=== PATIENT | female | born 2005 | race Caucasian/White ===

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

== ENCOUNTER 2024-02-23 16:05 | Outpatient (CLI) | payer MEDICAID, SELFPAY ==
--- NOTE | ~2024-02-23 | US_ITS ---
EXAMINATION: US OB <=14 wk fetus w TV INDICATION: Pain TECHNIQUE: Sonography of the pelvis was performed by transabdominal and transvaginal techniques. COMPARISON: None. RESULT: Uterus: 8.4 x 4.4 x 4.8 cm. Anteverted. Homogenous myometrium. Intrauterine gestational sac: Single present. Mean Sac Diameter: 1.02 cm, corresponding gestational age 5 week 5 days. Yolk sac: 0.18 cm . Embryo: Single present. Possible pole identified, crown rump length: 0.12 cm, out of range fo r gestational age calculation. Gestational heart rate: Not detected . Subgestational hematoma: Absent . Right ovary: 3.7 x 2.0 x 2.8 cm. Vascular flow is present. Small cystic structure, likely corpus l uteal cyst. Left ovary: 3.1 x 2.4 x 2.0 cm. Vascular flow is present. No adnexal mass. Pelvis free fluid: None. IMPRESSION: Intrauterine of uncertain viability. Recommend clinical and sonographic follow-up. Estimated Gestational Age: 5 weeks, 5 days by mean gestational sac diameter. MAY by ultrasound 2024. Reviewed, dictated and finalized at location K. IMPRESSION: Intrauterine of uncertain viability. Recommend clinical and sonograph ic follow-up. Estimated Gestational Age: 5 weeks, 5 days by mean gestational sac diameter. E DD by ultrasound 10/20/2024.
== END 2024-02-23 16:06 | disposition home or self-care (01) ==
LOC: ANHIMG 16:12
PROVIDERS: PCP Family Medicine; Visit Provider Advanced Practice Midwife
DX: R52 Pain, unspecified (principal); Z34.91 Encounter for supervision of normal pregnancy, unspecified, first trimester; Z3A.01 Less than 8 weeks gestation of pregnancy
CPT/HCPCS: 76801; 76817

== ENCOUNTER 2024-04-21 06:30 | Emergency (ER) | payer OTHER, MEDICAID, SELFPAY ==
[2024-04-21 06:47] VITALS: PULSE 110; RESP 15; TEMP 36.4; O2SAT 100
[2024-04-21 06:57] LABS: Basophils Percent Auto 0.3 % (0.2-1.2); Eosinophils Percent Auto 0.3 % (0-4.4); Hematocrit 39.1 % (37.0-47.0); Hemoglobin 13.2 g/dL (12.0-15.0); Immature Granulocyte Absolute 0.03 K/mm3 (0.00-0.031); Immature Granulocyte Percent A 0.3 % (0-0.5); Lymphocytes Absolute Auto 0.66 K/mm3 (0.9-3.2); Mean Corpuscular HGB Conc 33.8 g/dl (32-36); Mean Corpuscular Hemoglobin 29.8 pg (26-34); Mean Corpuscular Volume 88.3 fl (80-100); Mean Platelet Volume 9.4 fl (7.4-10.4); Monocytes Absolute Auto 0.7 K/mm3 (0.1-0.6); Monocytes Percent Auto 6.7 % (2.6-8.5); Neutrophils Absolute Auto 9.6 K/mm3 (1.3-6.7); Neutrophils Percent Auto 86.4 % (45.5-73.1); Platelet Count Result 199 k/mm3 (150-375); Red Blood Count 4.43 M/mm3 (4.2-5.4); Red Cell Distribution Width 13.2 % (11.5-14.5); White Blood Count 11.1 K/mm3 (4.5-10.0)
[2024-04-21] MEDS: SODIUM CHLORIDE 0.9% IV 1,000 ML 999 ML IV CONT (07:01)
[2024-04-21 07:09] LABS: Prothrombin Time 13.9 Seconds (11.1-14.7)
[2024-04-21 07:10] LABS: Partial Thromboplastin Time 25.5 Seconds (22.3-36.8)
[2024-04-21 07:13] LABS: Alanine Aminotransferase 26 U/L (6-35); Albumin Level 4.4 g/dL (3.5-5.1); Alkaline Phosphatase 58 U/L (38-126); Anion Gap 9 mmol/L (4-12); Aspartate Amino Transferase 25 U/L (14-36); Bilirubin,Total 0.2 mg/dL (0.2-1.3); Blood Urea Nitrogen 10 mg/dL (7-17); Carbon Dioxide 24 mmol/L (22-30); Chloride 101 mmol/L (98-107); Estimated CRCL calculation 139 ml/min; Estimated Glomerular Filt Rate > 60; Glucose 112 mg/dL (65-110); Sodium 134 mmol/L (137-145)
[2024-04-21 07:27] VITALS: BP 112/71; PULSE 89; RESP 16; O2SAT 100
--- NOTE | 2024-04-21 07:30 | ED.GENADULT ---
HPI - General Adult General Chief complaint: GI Bleed Stated complaint: 14wks preg, blood in stool and cramping Time Seen by Provider: 04/21/24 06:52 History of Present Illness HPI narrative: 19-year-old female that is 14 weeks presents to the emergency department for evaluation for abdominal cramping and passing blood per rectum. Patient states that she has had some issues with constipation during this . Patient states last night she was having a bowel movement and did pass some blood. Patient states then later the morning she had 2 episodes of passing blood per rectum without stool. Patient does complain of lower abdominal cramping. Related Data Allergies Allergy/AdvReac Type Severity Reaction Status Date / Time No Known Allergies Allergy Verified 04/21/24 06:32 Review of Systems Review of Systems: All systems reviewed & are unremarkable except as noted in HPI and below PMFSH Past Medical History Medical History (Updated 04/21/24 @ 09:45 by Paul Gutierrez MD) Pre-eclampsia Family History Family History (Updated 12/21/22 @ 13:19 by Jihan Vela RN) Grandparent Cancer Grandparent Cancer Social History Social History Smoking status: Never smoker Alcohol intake: never Substance use: never Lack of Transportation: No Lack of Food: Never True Current Housing: I Do Not Have Housing Concerned About Future Housing: No Difficulty Paying Gas/Electric Bills: No Difficulty Paying for Meds: No Currently Unemployed: No Education: High School Diploma/GED Difficulty w/ Childcare or Family Care: No Living arrangements: with family Gender identity (if verbalized by the patient): Female Spiritual care concerns: No Exam Narrative: APPEARANCE: Well appearing, no pain, no distress, well-nourished. HEAD: normocephalic, atraumatic. EYES: PERRLA/EOMI, conjunctivae clear. NOSE: Normal no drainage EARS:TMS clear with good light reflex. THROAT: Pharynx clear, no exudate. NECK: Supple. No adenopathy, no masses. RESPIRATORY: Airway patent, respirations nonlabored. Clear to auscultation bilaterally, no rales, rhonchi, wheezing. CARDIOVASCULAR: Regular rate and rhythm without murmurs rubs or gallops. ABDOMINAL: Soft, nontender, nondistended, normal bowel sounds MUSCULOSKELETAL: Moves all extremities. Strength/ROM intact, No edema, No calf tenderness. NEURO: Alert. Cranial nerves II through XII intact. Good gait. Good coordination SKIN: Warm, dry. Normal Color rectal exam: Posterior tenderness during the rectal exam concerning for pressure, no fissure identified. Patient did have some brown stool with traces of blood on the digital rectal exam. Course Vital Signs Vital signs: Vital Signs Temperature 97.6 F 04/21/24 06:47 Pulse Rate 110 H 04/21/24 06:47 Respiratory Rate 15 04/21/24 06:47 Pulse Oximetry 100 04/21/24 06:47 Temperature 97.6 F 04/21/24 06:47 Pulse Rate 80 04/21/24 10:00 Respiratory Rate 18 04/21/24 10:00 Blood Pressure 121/83 04/21/24 10:00 Pulse Oximetry 100 04/21/24 10:00 Medical Decision Making MDM Narrative Medical decision making narrative: 19-year-old female presents emergency department for evaluation for rectal bleeding. Patient did have some sharp pain on the digital rectal exam concerning for anal fissure, no anal fissure was easily visible. No active bleeding on digital rectal exam. Patient did have a trace amount of blood the stool in the rectum. No hematochezia no melena. Patient has a minor leukocytosis but a normal hemoglobin and no acute abnormalities on her CMP UA was negative for infection. Patient did feel improved after rehydration. Was encouraged of close follow-up with her primary care physician and her OB Gyne. All questions concerns were addressed. bedside M-mode ultrasound showed heart rate of 150-170 Differential Diagnosis Differential Diagnosis: colitis, diverticulitis, hemorrhoid, UTI, abdominal cramps, dehydration Vital Signs Vital Signs: Vital Signs Temperature 97.6 F 04/21/24 06:47 Pulse Rate 110 H 04/21/24 06:47 Respiratory Rate 15 04/21/24 06:47 Pulse Oximetry 100 04/21/24 06:47 Temperature 97.6 F 04/21/24 06:47 Pulse Rate 80 04/21/24 10:00 Respiratory Rate 18 04/21/24 10:00 Blood Pressure 121/83 04/21/24 10:00 Pulse Oximetry 100 04/21/24 10:00 Lab Data Lab results reviewed: Yes I reviewed the patient's lab results. 11/13/24 06:50 04/21/24 06:50 Labs: Lab Results 04/21/24 Range/Units 06:50 WBC 11.1 H (4.5-10.0) K/mm3 RBC 4.43 (4.2-5.4) M/mm3 Hgb 13.2 D (12.0-15.0) g/dL Hct 39.1 (37.0-47.0) % MCV 88.3 (80-100) fl MCH 29.8 (26-34) pg MCHC 33.8 (32-36) g/dl RDW 13.2 (11.5-14.5) % Plt Count 199 D (150-375) k/mm3 MPV 9.4 (7.4-10.4) fl Immature Gran % (Auto) 0.3 (0-0.5) % Neut % (Auto) 86.4 H (45.5-73.1) % Lymph % (Auto) 6.0 L (18.3-44.2) % [place] % (Auto) 6.7 (2.6-8.5) % Eos % (Auto) 0.3 (0-4.4) % Baso % (Auto) 0.3 (0.2-1.2) % Lymph # (Auto) 0.66 L (0.9-3.2) K/mm3 [place] # (Auto) 0.7 H (0.1-0.6) K/mm3 Eos # (Auto) 0.0 (0-0.3) K/mm3 Baso # (Auto) 0.0 (0.0-0.1) K/mm3 Abs Immat Gran (auto) 0.03 (0.00-0.031) K/mm3 Absolute Neuts (auto) 9.6 H (1.3-6.7) K/mm3 Absolute Nucleated RBC 0.000 (0.0-0.012) K/mm3 Nucleated RBC % 0.0 (0.0-0.2) % PT 13.9 (11.1-14.7) Seconds INR 1.0 APTT 25.5 (22.3-36.8) Seconds Sodium 134 L (137-145) mmol/L Potassium 4.0 (3.4-5.0) mmol/L Chloride 101 (98-107) mmol/L Carbon Dioxide 24 (22-30) mmol/L Anion Gap 9 (4-12) mmol/L BUN 10 (7-17) mg/dL Creatinine 0.60 L (0.7-1.0) mg/dL Estim Creat Clear Calc 139 ml/min Estimated GFR > 60 (59 - ) Glucose 112 H (65-110) mg/dL Calcium 9.0 (8.4-10.2) mg/dL Total Bilirubin 0.2 (0.2-1.3) mg/dL AST 25 (14-36) U/L ALT 26 (6-35) U/L Alkaline Phosphatase 58 (38-126) U/L Total Protein 8.0 (6.3-8.2) g/dL Albumin 4.4 (3.5-5.1) g/dL Urine Color Yellow (Yellow) Urine Appearance Cloudy H (Clear) Urine pH 5.5 (5.0-9.0) Ur Specific [place] 1.026 (1.001-1.035) Urine Protein Trace (Negative) mg/dL Urine Glucose (UA) Negative (Negative) mg/dL Urine Ketones Negative (Negative) mg/dL Ur Blood (Man) Negative (Negative) Urine Nitrate Negative (Negative) Urine Bilirubin Negative (Negative) Urine Urobilinogen 0.2 (<2.0) mg/dL Add Ur Microanalysis Reviewed Leukocyte Esterase Rfl Negative (Negative) AMANDO/UL Urine RBC 3-5 H (0-2) /hpf Urine WBC 0-5 (0-3) /hpf Ur Squamous Epith Cells Moderate (Few) /hpf Urine Bacteria 2+ H /hpf Urine Casts 3-5 Blood Type O Positive Antibody Screen Negative Discharge Plan Discharge Clinical Impression: Rectal bleeding, Abdominal cramping Patient Disposition: Home, Self-Care Condition: Stable Instructions: Antibiotic Form, Rectal Bleeding (ED) Additional Instructions: drink plenty of fluids. Tylenol for pain control. Have close follow-up with OB Gyne. If you have any worsening symptoms then please call or return to the emergency department. Follow-up/Referrals: PHYSICIAN,ELECTRICAL ENGINEERING MANAGER [Non-Staff] -
[2024-04-21 07:35] LABS: Add Urine Microscopic? YES; Appearance Urine Cloudy (Clear); Bacteria Urine 2+ /hpf; Bilirubin Urine Negative (Negative); Blood Urine Negative (Negative); Color Urine Yellow (Yellow); Glucose Urine UA Negative (Negative); Ketones Urine Negative (Negative); Leukocyte Esterase Ur Negative LEU/UL (Negative); Need Manual Microscopic Reviewed; Nitrate Urine Negative (Negative); Protein Urine Trace mg/dL (Negative); Specific Grav Ur 1.026 (1.001-1.035); Squamous Epithelial Cell Urine Moderate /hpf (Few); Urobilinogen Urine 0.2 mg/dL (<2.0); pH Urine 5.5 (5.0-9.0)
[2024-04-21 07:37] LABS: WBC Urine 0-5 /hpf (0-3)
[2024-04-21 09:14] VITALS: BP 121/83; PULSE 90; RESP 18; O2SAT 100
[2024-04-21 10:00] VITALS: BP 121/83; PULSE 80; RESP 18; O2SAT 100
== END 2024-04-21 10:03 | disposition home or self-care (01) ==
PROVIDERS: Student in an Organized Health Care Education/Training Program; Emergency Provider Emergency Medicine
DX: K62.5 Hemorrhage of anus and rectum (principal); R10.9 Unspecified abdominal pain
CPT/HCPCS: 36415; 80053; 81001; 85025; 85610; 85730; 86850; 86900; 86901; 96360; 96361; 99283; J7030

== ENCOUNTER 2024-07-24 12:24 | Outpatient (RCR) | payer OTHER, MEDICAID, SELFPAY ==
[2024-07-24 13:17] VITALS: BP 113/66
== END 2024-10-12 17:58 | disposition home or self-care (01) ==
LOC: ANHOBOP 12:24
PROVIDERS: Visit Provider Advanced Practice Midwife
DX: O36.8120 Decreased fetal movements, second trimester, not applicable or unspecified (principal); Z3A.27 27 weeks gestation of pregnancy
CPT/HCPCS: 59025

== ENCOUNTER 2024-09-02 12:17 | Outpatient (CLI) | payer OTHER, MEDICAID, SELFPAY ==
[2024-09-02 12:50] VITALS: BP 108/66; PULSE 94
[2024-09-02 13:00] VITALS: BP 107/64; PULSE 89
--- OUTSIDE RECORDS SUMMARY | 2024-09-02 13:08 | XMS_ITS | Continuity of Care Document ---
Author Organization [facility], Amory Address [address] [place] [address] Assessment Encounter Date Assessment Date Assessment LastModified by Organization Details LastModified Time 09/01/2024 09/01/2024 Patient is _33__weeks . Discussed plan. Not available 09/01/2024 15:35:50 Plan of Treatment Reminders Order Date Submit Date Provider Last Modified By Organization Details Last Modified Time Details Appointments OB ROUTINE 2024 04:45P M Carrie Beatty CNM Not available Not available Not available OB ROUTINE 2024 09:15A M SHEILA SHERWOOD MD Not available Not available Not available U/S OB GROWTH 2024 11:00A M ULTRASOUND Not available Not available Not available OB ROUTINE 2024 11:45A M Carrie Beatty CNM Not available Not available Not available Lab None recorde d. Referral None recorde d. Procedures None recorde d. Surgeries None recorde d. Imaging None recorde d. Medication Orders None recorde d. Patient TargetsNo targets recorded. Patient InstructionsNo instructions recorded. Reason for Referral None Reported. Results Created Date Observation Date Name Description Value Unit Range Abnormal Flag Note LastModifiedBy Organization Detail LastModifiedTime 04/09/2004/09/2024 US, obste tric, nucha l trans lucen cy No observ ation record ed. [facility] [address], [place], [address], 04/09/2024 13:56:24 04/09/20 24 04/09/2024 US, obste tric, nucha l trans lucen cy No observ ation record ed. [email or web address] [address], [place], [address], 04/09/2024 21:34:13 06/11/19 25 06/11/2024 US, obste tric, 2nd or 3rd trime ster No observ ation record ed. [facility] [address], [place], [address], 06/11/2024 17:06:59 06/11/19 25 06/11/2024 US, obste tric, 2nd or 3rd trime ster No observ ation record ed. [email or web address] [address], [place], [address], 06/11/2024 23:27:04 07/24/19 25 07/24/2024 imagi ng/di agnos tic resul t No observ ation record ed. [facility] [address], [place], [address], 07/25/2024 07:21:51 09/02/19 25 09/01/2024 US, obste tric, follo w-up No observ ation record ed. [email or web address] [facility] [address], [place], [address], 09/01/2024 18:21:06 09/02/19 25 09/01/2024 US, obste tric, follo w-up No observ ation record ed. [email or web address] [address], [place], [address], 09/01/2024 15:16:12 Result Notes None recorded. Problems Name Problem SNOMED Code Status Onset Date Resolution Date Notes Provider Name and Address Organization Details Recorded Time Pregnanc y 34549560 Completed 202201/10/2023 Ariana Davey [facility], [facility] 13:17:11 Uterine size for dates discrepa ncy 660875025 Completed 2022 Cat Garza [facility], [facility] 3 12:30:20 Anemia 385243611 Completed slowfe 1tab daily Cat Garza [facility], [facility] 3 12:30:20 Breech presenta tion 8519746 Completed [place] -CS 01/08 Cat Garza [facility], [facility] 3 12:30:20 Pregnanc y 85137283 Active 2023 Ariana Davey [facility], [facility] 4 13:17:11 Past pregnanc y history of pre-ecla mpsia 3051010968 11004 Active bASA daily Carrie Beatty CNM [address], [place], [address], [facility] 4 13:56:45 section Active breech/p reeclamp marissa Carrie Beatty CNM [address], [place], [address], [facility] 4 13:55:06 Impaired glucose toleranc e 1707472 Active 3hr gtt schedule d Alisia nelson, [facility] 5 12:02:42 Impaired glucose toleranc e 2170315 Active 3hr gtt schedule d Alisia Murphy [facility], [facility] 5 12:02:41 Problem Notes None recorded. Procedures Surgical History Date Name Laterality Status Provider Name and Address Organization Details Recorded Time 3 SECTION (SURG) completed Anna Chow [facility] 01/02/2023 10:39:04 2 IUD Removal completed JAZ Ojeda- [address], [place], [address], [facility] 03/11/2022 09:51:40 IUD Insertion completed Angelina Sifuentes, [facility]- [address], [place], [address], [facility] 04/12/2021 10:59:44 Imaging Results None recorded. Procedure Notes None recorded. Medical Equipment None Reported. Allergies No known drug allergies Medications Name Sig Start Date Stop Date Status Note LastModified by Organization Details LastModified Time amoxicill in 500 mg capsule TAKE 1 CAPSULE BY MOUTH TWICE A DAY FOR 10 DAYS 05/14 completed Not Available Not Available Not Available doxycycli ne hyclate 100 mg capsule TAKE 1 CAPSULE BY MOUTH TWICE A DAY WITH MEALS FOR 7 DAYS 11/12 completed Not Available Not Available Not Available azithromy rob 250 mg tablet 05/24 completed Not Available Not Available Not Available fluconazo le 150 mg tablet TAKE 1 TABLET BY MOUTH EVERY DAY DIRECTED FOR 1 DAY 02/06 completed Not Available Not Available Not Available ondansetr on HCl 4 mg tablet TAKE 1 TABLET BY MOUTH EVERY 6 HOURS. 08/18 completed Not Available Not Available Not Available metronida zole 500 mg tablet TAKE 1 TABLET BY MOUTH THREE TIMES A DAY FOR 7 DAYS 05/14 completed Not Available Not Available Not Available ondansetr on 8 mg disintegr ating tablet Take 1 tablet PO 1hr prior to your schedule d procedur e. 10/11 completed Not Available Not Available Not Available oxycodone -acetamin ophen 5 mg-325 mg tablet TAKE 1 TABLET BY MOUTH EVERY 4 HOURS NEEDED FOR PAIN 02/03 completed Not Available Not Available Not Available amoxicill in 875 mg tablet TAKE 1 TABLET BY MOUTH EVERY 12 HOURS 03/05 completed Not Available Not Available Not Available phenazopy ridine 100 mg tablet TAKE 1 TABLET BY MOUTH THREE TIMES A DAY FOR 7 DAYS 03/11 completed Not Available Not Available Not Available misoprost ol 100 mcg tablet Insert 1 tablet vaginall y the night prior to your procedur e. 05/24 completed Not Available Not Available Not Available ibuprofen 600 mg tablet Take 1 tablet PO 1hr prior to your procedur e than, q8hrs x 24hrs with food. 02/06 completed Not Available Not Available Not Available metoclopr amide 10 mg tablet TAKE 1 TABLET BY MOUTH FOUR TIMES A DAY 04/09 completed Not Available Not Available Not Available amoxicill in 500 mg-potass ium clavulana te 125 mg tablet TAKE 1 TABLET BY MOUTH EVERY 12 HOURS FOR 5 DAYS 03/11 completed Not Available Not Available Not Available medroxypr ogesteron e 150 mg/mL intramusc ular syringe INJECT 1 MILLILIT ER INTRAMUS CULARLY EVERY 3 MONTHS 02/25 completed Patient requeste d to stop Depo Not Available Not Available Not Available FE 06/28 (28) 1 mg-20 mcg (21)/75 mg (7) tablet Take 1 tablet every day by oral route. 03/22 completed Not Available Not Available Not Available 10/20 completed Not Available Not Available Not Available Lo Loestrin Fe 1 mg-10 mcg (24)/10 mcg (2) tablet Take 1 tablet every day by oral route for 90 days. 01/11 completed Not Available Not Available Not Available Kyleena 17.5 mcg/24 hr (up to 5 years) 19.5 mg intrauter ine device Take by intraute rine route. 03/11 completed Not Available Not Available Not Available Vitals Date Recorded Body weight Body mass index (BMI) Percentile per age and sex Body mass index (BMI) Body height Systolic blood pressure Diastolic blood pressure Provider Name and Address Organization Details Last Updated DateTime 5 65284.8 8163 g 95 % 32.1 kg/m2 167.64 cm 114 mm[Hg] 68 mm[Hg] Ariana Davey [facility] 5 15:28:28 Social History Question Answer Notes LastModified by Organizat ion Details LastModified Time Tobacco Smoking Status Never Smoker Margaret nelson [facility] 12/15/2019 10:08:23 What Is Your Level Of Alcohol Consumption? None Information not available 10/09/2020 Are You Blind Or Do You Have Difficulty Seeing? No Information n ot available 10/09/2020 What Is Your Level Of Caffeine Consumption? Moderate Information not available 10/09/2020 In The 14 Days Before Symptom Onset, Have You Had Close Contact With A Laboratory-confirm ed COVID-19 While That Case Was Ill? No [email or web address] Information n ot available 06/12/2022 In The 14 Days Before Symptom Onset, Have You Had Close Contact With A Person Who Is Under Investigation For COVID-19 While That Person Was Ill? No Information not available 06/12/2022 Have You Been To An Area Known To Be High Risk For COVID-19? No [email or web address] Information not available 06/12/2022 Are You Currently Employed? No Information not available 10/10/2020 Are You Deaf Or Do You Have Serious Difficulty Hearing? No Information not available 10/09/2020 What Type Of Diet Are You Following? REGULAR Information n ot available 10/09/2020 What Is The Highest Grade Or Level Of School You Have Completed Or The Highest Degree You Have Received? [id number] Information not available 10/10/2020 Do You Use Your Seat Belt Or Car Seat Routinely? Yes Information not available 10/09/2020 Are You Sexually Active? No Information not available 10/10/2020 Do You Have Smoke And Carbon Monoxide Detectors In Your Home? Yes Information not available 10/09/2020 Do You Feel Stressed (tense, Restless, Nervous, Or Anxious, Or Unable To Sleep At Night)? [id number] Information not available 10/09/2020 Do You Use Any Illicit Or Recreational Drugs? No Information not available 10/09/2020 Do You Use Sunscreen Routinely? Yes Information not available 10/09/2020 Has Tobacco Cessation Counseling Been Provided? No [email or web address] Information not available 06/12/2022 Do You Or Have You Ever Used Any Other Forms Of Tobacco Or Nicotine? No [email or web address] Information not available 06/12/2022 Sex: Unknown Functional Status Question Answer Note LastModified by Organizat ion Details LastModified Time Do you have difficulty walking or climbing stairs? No [email or web address] Information not available 06/14/2022 Are you able to walk? [email or web address] Information not available 10/09/2020 Are you able to care for yourself? Yes Information not available 03/11/2022 Do you have difficulty dressing or bathing? No Information not available 03/11/2022 What is your exercise level? Moderate Information not available 10/09/2020 Mental Status None recorded. Family History Relationship Description Onset Age of this Age Resolved Age Notes LastModified by Organization Details LastModified Time Father Hypertensive disorder [email or web address] Not available 2019 10:07:51 Maternal Grandmother Carcinoma in situ of uterus [email or web address] Not available 2019 10:08:04 Maternal Grandfather Carcinoma in situ of colon [email or web address] Not available 2019 10:08:16 Maternal Grandfather Heart disease [email or web address] Not available 2019 10:08:21 Medical History Condition Response Allergies (Food, seasonal, environmental ) N Other N Breast Cancer N Drug/Latex Allergies/Reactions N Blood Transfusion N Dermatologic Disorders N Lung Disease N Defects or Inherited Disease N Breast Problem N Gestational Diabetes N Hematologic disorders N Anesthesia Complications N History of STI N Deep Vein Thrombosis N Polycystic ovary syndrome N Anxiety Disorder N Autoimmune disease N Arthritis N Infertility N Polyps N Acid Reflux (GERD) N History of abnormal pap N Cancer N Stroke N Varicosities N Neurologic/Epilepsy N Endometriosis N High Cholesterol N Headaches N Fibromyalgia N Kidney Disease N Heart Problems N Kidney or Bladder Problems N Thyroid Problems N GI Problems N Eating Disorder N Anemia N Art (IVF or FET) N Psychiatric Illness N Ovarian Cancer N Diabetes N Pulmonary (TB, Asthma) N Hepatitis/Liver Disease N No Past Medical History N Eczema N Urinary Tract Infection N Abuse/Domestic Violence N Asthma N Trauma/Violence N Depression/ depression N Heart Disease N Pre-Eclampsia N Hypertension N Osteoporosis N Thrombophilias N Gynecological History Statement/Question Response Flow Heavy Date of Last Mammogram Date of LMP 01/12/2024 Was last menstrual period normal N STIs/STDs N HPV Vaccine Y Duration of Flow (days) 7 13 Current Control Method Are cycles usually normal N Date of Last Colonoscopy Frequency of Cycle (Q days) Sexually Active? Y Menses Monthly N Date of DEXA bone scan Age of first menstrual cycle 12 Date of Last Pap Smear Sexual Problems? N LMP Definite Obstetrics History GPAL:G 2 P 0 0 0 1 Type Value Living 1 Total 2 Immunizations Vaccine Type Date Status Note Provider Nam e and Address Organization Details Recorded Time COVID-19, mRNA, LNP-S, PF, 30 mcg/0.3 mL dose 12/09/2020 completed Dinora Fournier [facility] 01/11/2021 11:07:15 Past Encounters Encounter ID Performer Location Encounter Start Date Encounter Closed Date Diagnosis/Indication Diagnosis SNOMED-CT Code Diagnosis ICD10 Code Diagnosis Note [id number] Carrie Beatty [facility] [address] [address] 08/04/2024 13:32:49 08/04/2024 14:34:34 Gestation period, 29 weeks 09884801 Z3A.29 [id number] Carrie Beatty [facility] [address] [address] 08/18/2024 14:24:48 08/18/2024 15:14:09 Routine care 714141259 Z34.93 [id number] [facility] [address] [address] 09/01/2024 14:10:36 09/01/2024 15:14:22 Past history of pre-eclampsia 0696646166 20018 Z87.59 Z3A.33 [id number] Carrie Beatty [facility] [address] [address] 09/01/2024 14:10:49 09/01/2024 15:57:34 Gestation period, 33 weeks 30290704 Z3A.33 Health Concerns Section Related Observation LastModified by Organization Detai ls LastModified Time None Recorded Concern Status LastModified by Organization Details LastModified Time None Recorded Payers Encounter Date Sequence Insurance Name Policy Number Policy Ruvalcaba Covered Member ID Ruvalcaba Member ID Guarantor Name 09/01/2024 2 [place] [employer] Selina Lion [id number] Selina Lion 09/01/2024 1 [facility] [id number] Bk Lion [id number] Selina Lion OBGyn Episode Ob Episode Information Episode Created Date Number of Fetuses Patient Bloodtype Patient rh Status Prepregnancy Weight lbs Domestic Partner Domestic Partner Phone Father Name Duck Farmer Status 04/09/20 24 1 O Positive 179 [address] [employer] OPEN Fetus Data First Name Last Name Admitted to NICU Weight (g) Sex Living Outcome Pediatric Complications Fetus ID Race Codes Race Delivery Type [id number] Problems Problem Notes Problem Name Start Date End Date Resolution Snomed Code Not e section 67406909 amilcar ech/preeclampsia Past history of pre-eclampsia [id number] bASA daily Impaired glucose tolerance 0674386 3hr gtt schedul ed Enrrique Calculation Initial Enrrique Date Initial Exam Date Initial Exam Provider Initial Ultrasound Date Last Menstrual Period Date Ultra Sound Weeks Gestation 10/18/2024 03/10/2024 Carrie Jaci 03/10/2024 01/12/2024 8 Eighteen To Twenty Week Enrrique Update Ultra Sound Date Fundal Height At Umbil Quickening Date Ultra Sound Latest Weeks Gestation Final Enrrique Confirmed By Final Enrrique Confirmed Date Final Enrrique Date Ultra Sound Latest Days Gestation 0 0 Pre- Flowsheet Flowsheet Date 04/09/2024 Wiley Score Blood Edema Fundus Height Fundus Units Glucose Ketones Leukocytes Nitrite Labor Signs Protein Cervic Dilation Cervic Effacement Cervic Station neg none none trace Type Weight in lbs Pre/Post Dialysis Refused Weight 185.978941818104 BP Diastolic BP Location Tested BP Systolic BP Type 77 124 Fetus Heart Rate Present Fetus Movement A No Comments history of , breech , preeclampsia, uncomfortable on one side of scar, precautions reviewed cramping, nausea and vomiting. unsure about TOLAC vs rpt , rec daily bASA, Flowsheet Date 04/30/2024 Wiley Score Blood Edema Fundus Height Fundus Units Glucose Ketones Leukocytes Nitrite Labor Signs Protein Cervic Dilation Cervic Effacement Cervic Station Type Weight in lbs Pre/Post Dialysis Refused BP Diastolic BP Location Tested BP Systolic BP Type Fetus Heart Rate Present Fetus Movement Comments Flowsheet Date 05/14/2024 Wiley Score Blood Edema Fundus Height Fundus Units Glucose Ketones Leukocytes Nitrite Labor Signs Protein Cervic Dilation Cervic Effacement Cervic Station none Type Weight in lbs Pre/Post Dialysis Refused 184.168807655303 BP Diastolic BP Location Tested BP Systolic BP Type 69 117 Fetus Heart Rate Present A 150 Present Fetus Movement A No Comments baby asa is giving patient s tomach issues, r side pain where c-sec scar and is having some itching. reviewed precautions and education more cramping pain, not sharp or burning, +FM ok to stop bASA, f/u anatomy scan Flowsheet Date 06/11/2024 Wiley Score Blood Edema Fundus Height Fundus Units Glucose Ketones Leukocytes Nitrite Labor Signs Protein Cervic Dilation Cervic Effacement Cervic Station Type Weight in lbs Pre/Post Dialysis Refused BP Diastolic BP Location Tested BP Systolic BP Type Fetus Heart Rate Present Fetus Movement Comments Flowsheet Date 06/11/2024 Wiley Score Blood Edema Fundus Height Fundus Units Glucose Ketones Leukocytes Nitrite Labor Signs Protein Cervic Dilation Cervic Effacement Cervic Station Type Weight in lbs Pre/Post Dialysis Refused 187.465761531017 BP Diastolic BP Location Tested BP Systolic BP Type 67 135 Fetus Heart Rate Present Fetus Movement A Yes Comments Patient is having some heart burn, pain and swelling. Flowsheet Date 07/09/2024 Wiley Score Blood Edema Fundus Height Fundus Units Glucose Ketones Leukocytes Nitrite Labor Signs Protein Cervic Dilation Cervic Effacement Cervic Station neg trace 26 cm Type Weight in lbs Pre/Post Dialysis Refused 193.32199238625 BP Diastolic BP Location Tested BP Systolic BP Type 76 114 Fetus Heart Rate Present A 144 Fetus Movement A Yes Comments Patient is having pain and s welling. reviewed precautions, education, exercises, plan gct at next visit +FM doing well Flowsheet Date 08/04/2024 Wiley Score Blood Edema Fundus Height Fundus Units Glucose Ketones Leukocytes Nitrite Labor Signs Protein Cervic Dilation Cervic Effacement Cervic Station neg trace 27 cm Type Weight in lbs Pre/Post Dialysis Refused 187.984113678267 BP Diastolic BP Location Tested BP Systolic BP Type 71 108 Fetus Heart Rate Present A 146 Fetus Movement A Yes Comments Patient is having some cramp ing, discharge, swelling, nausea and vomiting. +FM, ok for cough drops precautions and education GCT today f/u 2 weeks Flowsheet Date 08/18/2024 Wiley Score Blood Edema Fundus Height Fundus Units Glucose Ketones Leukocytes Nitrite Labor Signs Protein Cervic Dilation Cervic Effacement Cervic Station neg trace Type Weight in lbs Pre/Post Dialysis Refused 195.694607772100 BP Diastolic BP Location Tested BP Systolic BP Type 65 114 Fetus Heart Rate Present Fetus Movement A Yes Comments +FM, precautions and educati on, call for preadmit, unsure about rsv vaccine, f/u 2 weeks Flowsheet Date 09/01/2024 Wiley Score Blood Edema Fundus Height Fundus Units Glucose Ketones Leukocytes Nitrite Labor Signs Protein Cervic Dilation Cervic Effacement Cervic Station Type Weight in lbs Pre/Post Dialysis Refused BP Diastolic BP Location Tested BP Systolic BP Type Fetus Heart Rate Present Fetus Movement Comments Flowsheet Date 09/01/2024 Wiley Score Blood Edema Fundus Height Fundus Units Glucose Ketones Leukocytes Nitrite Labor Signs Protein Cervic Dilation Cervic Effacement Cervic Station neg trace Type Weight in lbs Pre/Post Dialysis Refused 199.460251494082 BP Diastolic BP Location Tested BP Systolic BP Type 68 114 Fetus Heart Rate Present Fetus Movement A Yes Comments Patient is having some press ure, pain, contractions and swelling. efw 18%, +FM vertex! doing well rpt growth in 4 weeks, has preadmit scheduled. Menstrual History Last Menstrual Date Menses Monthly On Bcp Conception Prior Menses Frequency Hcg Plus Date Menarche Onset Age 0801/12/2024 Delivery Information Delivery Date Delivery Type Labor Anesthesia Weeks Gestation Incision Type Labor Labor Length Hrs Delivered By Post Complications Tubal Sterilization Discharge Date Comments Discharge Information Feeding Method Contraceptive Method Maternal HG B and HCT Levels
--- OUTSIDE RECORDS SUMMARY | 2024-09-02 13:08 | XMS_ITS | Data Portability ---
Author Organization [facility], [facility] Address [address] [address] Assessment Encounter Date Assessment Date Assessment LastModified by Organization Details LastModified Time 07/09/2024 07/09/2024 Patient is _25__weeks . Discussed plan. Not available 07/09/2024 11:56:47 08/04/2024 08/04/2024 Patient is _29__weeks . Discussed plan. [email or web address] Not available 08/04/2024 14:26:30 08/18/2024 08/18/2024 Patient is __31_weeks . Discussed plan. [email or web address] Not available 08/18/2024 15:11:34 09/01/2024 09/01/2024 Patient is _33__weeks . Discussed plan. [email or web address] Not available 09/01/2024 15:35:50 Plan of Treatment Reminders Order Date Submit Date Provider Last Modified By Organization Details Last Modified Time Details Appointments OB ROUTINE 2024 04:45P Christiana Beatty CNM Not available Not available Not available OB ROUTINE 2024 09:15A Christiana SHERWOOD MD Not available Not available Not available U/S OB GROWTH 2024 11:00A M ULTRASOUND Not available Not available Not available OB ROUTINE 2024 11:45A Christiana Beatty CNM Not available Not available Not available Lab None recorde d. Referral None recorde d. Procedures None recorde d. Surgeries None recorde d. Imaging US, obstetr ic, follow- up 2024 025 [email or web address] [address], [address], [place], [address], 09/01/2024 19:02:19 Medication Orders None recorde d. Patient TargetsNo targets recorded. Patient InstructionsNo instructions recorded. Reason for Referral None Reported. Results Created Date Observation Date Name Description Value Unit Range Abnormal Flag Note LastModifiedBy Organization Detail LastModifiedTime 08/04/1908/04/2024 HEMAT OCRIT (HCT) HCT 37.3 % (based on docume nted legal sex) 34.0-4 5.0 Not Available [facility] (Lab) [address], [place], [address], 08/05/2024 15:44:40 08/04/19 25 08/04/2024 HEMOG LOBIN (HGB) HGB 12.3 g/dL (based on docume nted legal sex) 11.6-1 5.4 Not Available [facility] (Lab) [address], [place], [address], 08/05/2024 15:44:40 08/04/19 25 08/04/2024 GTT - GESTA RICHARD L MELONIE Brasher, ACOG OB glucose, 1 hour screen 164 mg/dL 70-135 high Not Available [facility] (Lab) [address] [place], [address], 08/05/2024 15:44:41 08/04/1908/04/2024 HIV 1/2 ANTIG EN/AN TIBOD Y, REFLE X CONFI RMATI ON HIV antigen/anti body Nonrea ctive nonrea ctive HIV-1 antig en and HIV-1 /HIV- 2 antib odies were not detec wilfredo. No labor atory evide nce of HIV infec tion. Not Available [facility] (Lab) [address], [place], [address], 08/05/2024 15:44:41 08/04/19 25 08/04/2024 RPR SCREE N, REFLE X TITER /CONF IRMAT ION RPR qualitative Nonrea ctive nonrea ctive Not Available [facility] (Lab) [address], [place], [address], 08/05/2024 15:44:41 08/10/19 25 08/09/2024 GTT - GESTA RICHARD L, 3 HOUR, ACOG glucose, fasting acog 79 mg/dL 70-94 Not Available [facility] (Lab) [address], [place], [address], 08/10/2024 04:59:42 08/10/19 25 08/09/2024 GTT - GESTA RICHARD L, 3 HOUR, ACOG glucose, 1 hour acog 175 mg/dL 70-179 Not Available [facility] (Lab) [address] [place], [address], 08/10/2024 04:59:42 08/10/19 25 08/09/2024 GTT - GESTA RICHARD L, 3 HOUR, ACOG glucose, 2 hour acog 140 mg/dL 70-154 Not Available [facility] (Lab) [address] [place], [address], 08/10/2024 04:59:42 08/10/19 25 08/09/2024 GTT - GESTA RICHARD L, 3 HOUR, ACOG glucose, 3 hour acog 100 mg/dL 70-139 Not Available [facility] (Lab) [address] [place], [address], 08/10/2024 04:59:42 06/11/19 25 06/11/2024 US, obste tric, 2nd or 3rd trime ster No observ ation record ed. [facility] [address], [place], [address], 06/11/2024 17:06:59 06/11/19 25 06/11/2024 US, obste tric, 2nd or 3rd trime ster No observ ation record ed. [email or web address] [address], [place], [address], 06/11/2024 23:27:04 07/24/19 25 07/24/2024 imagi ng/di agnos tic resul t No observ ation record ed. [facility] [address], [place], [address], 07/25/2024 07:21:51 09/02/19 25 09/01/2024 US, obste tric, follo w-up No observ ation record ed. [email or web address] [facility] [address], [place], [address], 09/01/2024 18:21:06 09/02/19 25 09/01/2024 US, obste tric, follo w-up No observ ation record ed. [email or web address] [address], [place], [address], 09/01/2024 15:16:12 Result Notes None recorded. Problems Name Problem SNOMED Code Status Onset Date Resolution Date Notes Provider Name and Address Organization Details Recorded Time Pregnanc y 10528744 Completed 202201/10/2023 Ariana nelson [facility] 4 13:17:11 Uterine size for dates discrepa ncy 061560117 Completed 2022 Cat nelson [facility] 3 12:30:20 Anemia 112320043 Completed slowfe 1tab daily Cat nelson [facility] 3 12:30:20 Breech presenta tion 7965491 Completed footling -CS 01/08 Cat nelson [facility] 3 12:30:20 Pregnanc y 30047359 Active 2023 Ariana nelson [facility] 4 13:17:11 Past pregnanc y history of pre-ecla mpsia 8691242014 94187 Active bASA daily Crarie Beatty CNM [address], [place], [address], [facility] 4 13:56:45 section Active breech/p reeclamp marissa Carrie Beatty CNM [address], [place], [address], [facility] 4 13:55:06 Impaired glucose toleranc e 5278971 Active 3hr gtt schedule d Alisia nelson, [facility] 5 12:02:42 Impaired glucose toleranc e 3670229 Active 3hr gtt schedule d Alisia nelson, [facility] 5 12:02:41 Problem Notes None recorded. Procedures Surgical History Date Name Laterality Status Provider Name and Address Organization Details Recorded Time 3 SECTION (SURG) completed Anna Chow [facility] 01/02/2023 10:39:04 2 IUD Removal completed BETTIE Ojeda [address], [place], [address], [facility] 03/11/2022 09:51:40 1 IUD Insertion completed BETTIE [address], [place], [address], [facility] 04/12/2021 10:59:44 Imaging Results Imaging Date Name Status LastModified by Organiz ation Details LastModified Time 06/11/2024 US, obstetric, 2nd or 3rd trimester completed [address] [place], [address], 06/11/2024 17:06:59 06/11/2024 US, obstetric, 2nd or 3rd trimester completed [email or web address] [address], [place], [address], 06/11/2024 23:27:04 07/24/2024 imaging/diagno stic result active [facility] [address], [place], [address], 07/25/2024 07:21:51 09/01/2024 US, obstetric, follow-up completed [email or web address] [facility] [address], [place], [address], 09/01/2024 18:21:06 09/01/2024 US, obstetric, follow-up active [email or web address] [address], [place], [address], 09/01/2024 15:16:12 Procedure Notes None recorded. Medical Equipment None [...] Depo Not Available Not Available Not Available Junel FE 06/28 (28) 1 mg-20 mcg (21)/75 [...] Address Organization Details Last Updated DateTime 5 29116.3 2741 g 94 % 31.2 kg/m2 167.64 cm 114 mm[Hg] 76 mm[Hg] Ariana Davey [facility] 5 11:54:13 Date Recorded Body height Body mass index (BMI) Body mass index (BMI) Percentile per age and sex Body weight Systolic blood pressure Diastolic blood pressure Provider Name and Address Organization Details Last Updated DateTime 5 167.64 cm 30.2 kg/m2 93 % 92173.7 7319 g 108 mm[Hg] 71 mm[Hg] Ariana Davey [facility] 5 14:06:36 Date Recorded Body weight Body mass index (BMI) Body mass index (BMI) Percentile per age and sex Body height Systolic blood pressure Diastolic blood pressure Provider Name and Address Organization Details Last Updated DateTime 5 85470.5 1215 g 31.5 kg/m2 94 % 167.64 cm 114 mm[Hg] 65 mm[Hg] Ariana Davey [facility] 5 15:01:28 Date Recorded Body weight Body mass index (BMI) Percentile per age and sex Body mass index (BMI) Body height Systolic blood pressure Diastolic blood pressure Provider Name and Address Organization Details Last Updated DateTime 5 62805.8 8163 g 95 % 32.1 kg/m2 167.64 cm 114 mm[Hg] 68 mm[Hg] Arianaclinton Davey [facility] 5 15:28:28 Social History Question Answer Notes LastModified by Organizat ion Details LastModified Time Tobacco Smoking Status [facility] 12/15/[facility] 10:08:23 What Is Your Level [...] COVID-19 While That Case Was Ill? No [email or web address] Information n ot available 06/12/2022 In The 14 Days Before Symptom Onset, Have You Had Close Contact With A Person Who Is Under Investigation For COVID-19 While That Person Was Ill? No Information not available 06/12/2022 Have You Been To An Area Known To Be High Risk For COVID-19? No [email or web address] Information not available 06/12/2022 Are You Currently Employed? No Information not available 10/10/2020 Are You Deaf Or Do You Have Serious Difficulty Hearing? No Information not available 10/09/2020 What Type Of Diet Are You Following? REGULAR Information n ot available 10/09/2020 What Is The Highest Grade Or Level Of School You Have Completed Or The Highest Degree You Have Received? [id number] Information not available 10/10/2020 Do You Use Your Seat Belt Or Car Seat Routinely? Yes Information not available 10/09/2020 Are You Sexually Active? No Information not available 10/10/2020 Do You Have Smoke And Carbon Monoxide Detectors In Your Home? Yes Information not available 10/09/2020 Do You Feel Stressed (tense, Restless, Nervous, Or Anxious, Or Unable To Sleep At Night)? [id number] Information not available 10/09/2020 Do You Use Any Illicit Or Recreational Drugs? No Information not available 10/09/2020 Do You Use Sunscreen Routinely? Yes Information not available 10/09/2020 Has Tobacco Cessation Counseling Been Provided? No [email or web address] Information not available 06/12/2022 Do You Or Have You Ever Used Any Other Forms Of Tobacco Or Nicotine? No [email or web address] Information not available 06/12/2022 Sex: Unknown Functional Status Question Answer Note LastModified by Organizat ion Details LastModified Time Do you have difficulty walking or climbing stairs? No [email or web address] Information not available 06/14/2022 Are you able [...] mcg/0.3 mL dose 12/09/2020 completed Dinora Fournier [facility] 01/11/2021 11:07:15 Past Encounters Encounter ID Performer Location Encounter Start Date Encounter Closed Date Diagnosis/Indication Diagnosis SNOMED-CT Code Diagnosis ICD10 Code Diagnosis Note [id number] Angelina Sifuentes [facility] [address],[place] [address] 12/15/2019 10:02:27 12/15/2019 11:44:58 Contraception care management 634192860 N92.6 N94.5 Discussed all control options in great detail. Pt would like to start ocp. She is aware of the risks and benefits. She does not have any medical condition that is contraindi cated with the use of estrogen containing control. Pt will start her pills on the first friday following the start of her period. She is aware it is not effective for control the first month. She is also aware of the importance of taking at the same time every day. Encouraged use of condoms as the pill does not protect against STD's. Will return in 3 months for med check. Consent was read and signed. Pt verbalized understand ing. [id number] Angelina Sifuentes [facility] [address],[place] [address] 04/25/2020 11:53:47 04/25/2020 12:16:54 Contraception care management 574230067 N92.6 N94.5 Patient is here today for a medicaton check of control. She voices goals of therapy have been met with use of this therapy. She denies neg side effects. She is eating, drinking, sleeping well; moods are stable & periods are well regulated. Wishes to continue this method of BC. Appropriat e to continue this medication . RF sent lo [facility]w [facility]. Time spent in visit is a total of 15 mins with at least 50% of visit consisting of counseling and review of plan of care. [id number] Angelina Sifuentes [facility] [address],[place] [address] 10/10/2020 11:25:15 10/10/2020 12:19:55 Secondary dysmenorrhea 22883715 N94.5 Discussed all control options in great detail. Pt would like to start ocp. She is aware of the risks and benefits. She does not have any medical condition that is contraindi cated with the use of estrogen containing control. Pt will start her pills on the first friday following the start of her period. She is aware it is not effective for control the first month. She is also aware of the importance of taking at the same time every day. Encouraged use of condoms as the pill does not protect against STD's. Will return in 3 months for med check. Consent was read and signed. Pt verbalized understand ing. Switch to 06/28 FE. RTO 3mos med check Time spent in visit is a total of 15 mins with at least 50% of visit consisting of counseling and review of plan of care. Additional precaution kiya measures were taken to minimize potential exposure to the Covid-19 virus during this patient s visit, including available hand technical photographer upon arrive, temperatur e check and being asked a series of screening questions. All staff wore face coverings during this encounter, as well as provided additional cleaning and sanitizing of all surfaces, including countertop s, pens, chairs, door handles, light switches, etc, prior to and following the patient s visit. [id number] Angelina Sifuentes , [facility] [address] [address] 01/11/2021 10:29:04 01/11/2021 12:30:49 Contraception care management [id number] N92.6 N94.5 Discussed all control options in depth and pt is interested in Nexplanon. Discussed all risks and benefits including irregular unschedule d bleeding. Pt verbalized understand ing and would like to proceed. She is aware that she needs to call us on the 1st day of her period to schedule placement. Call with next cycle for placement. Time spent in visit is a total of 26 mins with at least 50% of visit consisting of counseling and review of plan of care.Addit ional precaution kiya measures were taken to minimize potential exposure to the Covid-19 virus during this patient s visit, including available hand technical photographer upon arrive, temperatur e check and being asked a series of screening questions. All staff wore face coverings during this encounter, as well as provided additional cleaning and sanitizing of all surfaces, including countertop s, pens, chairs, door handles, light switches, etc, prior to and following the patient s visit. [id number] Angelina Sifuentes [facility] [address] [address] 03/22/2021 14:38:59 03/22/2021 15:26:35 Contraception care management 548369333 N92.6 N94.5 Discussed all control options and pt would like KYLEENA IUD. I have discussed in detail all risks and benefits including risk of infection and perforatio n. She understand s she will need to contact office with next menses or may abstain, complete serum HCG day before placement, if neg can have IUD placed next day. Aware of need to verify with insurance device coverage. Literature given. All questions answered to patient satisfacti on. Call with next cycleSent Cytotec to place the night prior to IUD insertionT madeleine ibuprofen 600mg PO 1hr prior to IUD insertionT madeleine zofran 8mg x 1 dose 1hr prior to IUD insertion Time spent in visit is a total of 26 mins with at least 50% of visit consisting of counseling and review of plan of care.Addit ional precaution kiya measures were taken to minimize potential exposure to the Covid-19 virus during this patient s visit, including available hand technical photographer upon arrive, temperatur e check and being asked a series of screening questions. All staff wore face coverings during this encounter, as well as provided additional cleaning and sanitizing of all surfaces, including counter-to ps, pens, chairs, door handles, light switches, etc, prior to and following the patient s visit. [id number] Angelina Sifuentes [facility] [address] [address] 04/12/2021 10:05:29 04/12/2021 11:37:06 Screening procedure 95898121 Z13.9 Insertion of intrauterine contraceptive device 10284002 Z30.430 She has been counseled on all of the r/b/a of placement of an intrauteri ne device that include but are not limited to uterine perforatio n, injury to cervix, vagina, bladder, and bowel.Risk s of bleeding due to injury or increased irregular bleeding due to progestin effect of the device. Risks of infection would be increased within the first 21 days of placement with concommita nt cervicitis . She understand s that the device will need to be removed in this instance due to increased risk of Pelvic inflammato ry disease. Patient is aware she is at higher risk for STD and if contracted she could lose her fertility. Pt is aware that if occurs that she should contact office immediatel y to rule out ectopic which could be life threatenin g. IUD will also need to be removed and this could cause miscarriag e. Patient also informed that in the event her strings are absent or embedded at the time of removal she may need to have the IUD surgically removed. She was informed of the above and properly consented. IUD placed w/o complicati on. Patient should return to office after next period to check for string placement. Patient to expect irregular bleeding but should be seen in the ED if bleeding increases to soaking a pad an hour for at least 2 hours. She verbalized understand ing. RTO x 6wks IUD check [id number] Angelina Sifuentes [facility] [address],[place] [address] 05/28/2021 10:22:19 05/28/2021 10:48:40 IUD check 791915415 Z30.431 Patient is here for 4-6wk IUD string check. She denies complicati ons, pain, or unpleasant side effects. Happy with this control method. Wishes to continue. Time spent in visit is a total of 15 mins with at least 50% of visit consisting of counseling and review of plan of care. Additional precaution kiya measures were taken to minimize potential exposure to the Covid-19 virus during this patient s visit, including available hand technical photographer upon arrive, temperatur e check and being asked a series of screening questions. All staff wore face coverings during this encounter, as well as provided additional cleaning and sanitizing of all surfaces, including countertop s, pens, chairs, door handles, light switches, etc, prior to and following the patient s visit. [id number] Angelina [facility]ifuentes [facility] [address],[place] [address] 10/11/2021 12:52:40 10/11/2021 13:37:36 Sexually transmitted infectious disease 1563981 A64 Will contact via portal with results if wnl.If any abn's will call her. Time spent in visit is a total of 15 mins with at least 50% of visit consisting of counseling and review of plan of care. [id number] Angelina Sifuentes [facility] [address],[place] [address] 11/12/2021 12:17:53 11/12/2021 12:56:10 Venereal disease screening 207550230 Z11.3 Here today for TOCSTD sentSafe sex education dormitory counselor providedAl l questions answered Time spent in visit is a total of 15 mins with at least 50% of visit consisting of counseling and review of plan of care. [id number] Angelina Sifuentes [facility] [address],[place] [address] 02/06/2022 11:53:37 02/06/2022 12:43:30 Gynecologic examination 77901328 Z01.419 Take Calcium with Vitamin D 1200mg daily if not receiving in daily diet. It is strongly advised to have an annual flu shot and up can obtain at most pharmacies . If you have not had a TDap shot in the last 10 years you should obtain one as well. Discussed with patient & provided with informatio n regarding Gardisil vaccine to prevent the 4 strains for HPV that cause cervical cancer. Encourage safe sexual practices, to use condoms and limit partners if not already in a monogamous relationsh ip. Do monthly self breast exams. BRCA testing is now available for patients with strong genetic history of female cancer. If interested contact the office. Engage in daily exercise of low impact aerobic exercise 45-60 minutes 4-5 times weekly. Avoid tobacco, illicit drugs, and alcohol. This lifestyle behavior pattern will lead to less health conditions and longer life span. If BMI greater than 25 weight watchers or dietary consult advised. Pap smear is not recommende d prior to the age of 21. If you have any concerns, pelvic, or vaginal problems we can discuss testing. Patient received above instructio ns, and questions have been answered. If you have any questions please call or respond to this email. Patient was made aware of the patient portal and may obtain a paper copy of today's plan if desired.Juan saba due age 20yo unless otherwise indicated per asccp STD Screen sent urine Genetic Screen discussed Colon Screen na Dexa Screen na Routine Labs na Contracept ion care management 133212568 N92.6 N94.5 Doing well on KyleenaChe cks stringsNo issues [id number] Dinora [facility] [address],[place] [address] 02/27/2022 14:49:47 02/27/2022 15:48:24 Urinary symptoms 887746485 R39.9 [id number] Angelina Sifuentes [facility] [address],[place] [address] 03/05/2022 09:55:09 03/05/2022 10:52:35 IUD check 067650990 Z30.431 Patient is here for IUD string check--was unable to feel her strings. She denies complicati ons, pain, or unpleasant side effects. Overall, Happy with this control method. Exam WNL--IUD strings detected on exam Time spent in visit is a total of 15 mins with at least 50% of visit consisting of counseling and review of plan of care. [id number] Angelina Sifuentes [facility] [address],[place] [address] 03/11/2022 09:31:51 03/11/2022 10:09:10 Removal of intrauterine device 70813582 Z30.432 It was explained that she may have bleeding or spotting after the removal of the device today as well. If cannot see the strings of this device we will need to get an US image to make that the device is still in place and not in an unobtainab le position. She expressed understand ing of all the above instructio ns. Condoms recommende d if trying to prevent / STD's. [id number] Sharron [facility] [address],[place] [address] 06/12/2022 16:21:42 06/12/2022 18:21:31 screening 866481686 Z36.87 [id number] Carrie Beatty [facility] [address],[place] [address] 06/12/2022 16:22:04 06/13/2022 18:03:21 Amenorrhea 08362216 N91.2 [id number] Carrie Beatty [facility] [address],[place] [address] 06/14/2022 12:06:07 06/14/2022 13:39:52 Amenorrhea 64282469 N91.2 [facility] 727063068 R11.0 [id number] Sharron Fournier [facility] [address] [address] 07/04/2022 14:58:31 07/04/2022 15:49:56 screening 986026661 Z36.82 [id number] Hector Sullivan MD [facility] [address] [address] 07/04/2022 14:59:46 07/05/2022 14:25:28 Routine care 533977938 Z34.91 [id number] [facility] [address],[place] [address] 08/01/2022 14:52:46 08/01/2022 16:41:42 Routine care 982103986 Z34.92 [id number] Caty Sam [facility] [address] [address] 08/29/2022 14:49:22 08/29/2022 16:31:40 screening 885113987 Z36.3 [id number] [facility] [address] [address] 08/29/2022 14:50:01 08/29/2022 16:29:53 Routine care 294737757 Z34.92 [id number] Roula Gilbert MD [facility] [address] [address] 09/27/2022 14:47:06 09/30/2022 15:12:03 Routine care [id number] Z34.92 [id number] Caty Sam [facility] [address],[place] [address] 09/27/2022 14:48:10 09/30/2022 15:12:32 screening 420220021 Z36.2 Z3A.24 [id number] Lesley Rodriguez [facility] [address],[place] [address] 10/22/2022 11:11:41 10/22/2022 11:59:32 screening [id number] Z36.2 [id number] Roula Gilbert MD [facility] [address],[place] [address] 10/22/2022 11:11:58 10/22/2022 13:54:34 Routine care 547455762 Z34.92 [id number] Roula Gilbert MD [facility] [address],[place] [address] 11/05/2022 14:36:43 11/06/2022 15:15:26 Routine care 042982815 Z34.92 [id number] Roula Gilbert MD [facility] [address],[place] [address] 11/19/2022 14:13:04 11/20/2022 16:23:39 Routine care 441177166 Z34.92 Uterine si ze for dates discrepancy 207427947 O26.849 [id number] Carrie Beatty [facility] [address],[place] [address] 12/04/2022 13:53:38 12/04/2022 14:14:45 Routine care 833451076 Z34.93 [id number] Sharron Fournier [facility] [address],[place] [address] 1 12/17/2022 13:40:11 12/17/2022 14:11:31 Uterine size for dates discrepancy 865690503 O26.843 Z3A.35 [id number] Roula Gilbert MD [facility] [address],[place] [address] 12/17/2022 13:40:46 12/18/2022 10:45:49 Breech presentation 0551540 O32.1XX9 Routine an tenatal care 828169158 Z34.92 [id number] Roula Gilbert MD [facility] [address],[place] [address] 12/24/2022 14:05:39 12/25/2022 11:56:12 Routine care 573791026 Z34.92 - induced hypertension 26936413 O13.9 Breech presentation 6096 002 O32.1XX9 [id number] Roula Gilbert MD [facility] [address],[place] [address] 01/10/2023 12:03:34 01/10/2023 14:15:53 [id number] Roula Gilbert MD [facility] [address],[place] [address] 01/20/2023 12:15:55 01/20/2023 13:39:53 Past history of pre-eclampsia 0078091739 57458 Z87.59 Wound seroma 884939762 T 88.8XXD [id number] Roula Gilbert MD [facility] [address],[place] [address] 02/03/2023 14:40:58 02/06/2023 22:09:57 Postoperative visit 919300381 Z09 [id number] Roula Gilbert MD [facility] [address],[place] [address] 02/14/2023 11:20:54 02/14/2023 11:52:37 care 407770774 Z39.2 Contracept ion care management 449493692 Z30.9 [id number] MD Marie [place] [address],[place] [address] 02/20/2023 16:50:41 02/21/2023 15:47:07 Contraception care management 740644608 Z30.9 Contraception care 63530 5005 Z30.40 [id number] Angelina Sifuentes [facility] [address],[place] [address] 10/21/2023 10:29:34 10/21/2023 11:09:21 Abnormal uterine bleeding 7693891795 9100 N93.9 Today we discussed ways we can help her menstrual cycle both BC and non-BC methods like q1-3mos provera use. She has opted to continue to monitor and track cycles which we discussed will eventually go back to normal monthly cycles after use of Depo.This is normal for those stopping Depo in some instances with no other obvious causes found.Her UPT is neg.Contin ue to Breast feed but I would not rely on this as a method of BC. She will reach out if changes her mind on options we discussed. Time spent in visit is a total of 22 mins with at least 50% of visit consisting of counseling and review of plan of care. [id number] [facility] [address],[place] [address] 03/04/2024 14:55:25 03/04/2024 15:30:06 Abnormal human chorionic gonadotropin 218833256 O02.81 Z3A.[id number] [facility] [address],[place] [address] 03/10/2024 11:04:17 03/10/2024 11:48:20 [id number] [facility] [address],[place] [address] 03/10/2024 11:04:47 03/10/2024 14:19:00 Amenorrhea 83166795 N91.2 Venereal d isease screening 243683225 Z11.3 Nausea and vomiting 1693 1999 R11.2 [id number] Lesley [facility] [address],[place] [address] 04/09/2024 11:31:47 04/09/2024 12:31:00 screening 679325395 Z36.82 Z3A.12 [id number] Carrie Beatty [facility] [address],[place] [address] 04/09/2024 11:32:10 04/09/2024 14:59:12 Gestation period, 12 weeks 87523756 Z3A.12 Routine an tenatal care 471057696 Z34.93 [id number] Edwige Quinteros [facility] [address],[place] [address] 04/30/2024 14:29:41 04/30/2024 15:14:07 06463393 Z33.1 [id number] Carrie Beatty [facility] [address],[place] [address] 05/14/2024 10:44:34 05/14/2024 13:24:24 Pruritic rash 26189098 L28.2 Gestation period, 17 weeks 49155854 Z3A.17 [id number] Lesley Rodriguez [facility] [address],[place] [address] 06/11/2024 11:35:56 06/11/2024 13:36:37 screening for malformation 346812369 Z36.3 Z3A.21 [id number] Carrie Beatty [facility] [address],[place] [address] 06/11/2024 11:36:13 06/11/2024 13:45:49 Gestation period, 21 weeks 08236113 Z3A.21 [id number] Carrie Beatty [facility] [address],[place] [address] 07/09/2024 11:14:31 07/09/2024 12:04:04 Gestation period, 25 weeks 50028415 Z3A.25 [id number] Carrie Beatty [facility] [address],[place] [address] 08/04/2024 13:32:49 08/04/2024 14:34:34 Gestation period, 29 weeks 64603657 Z3A.29 [id number] Carrie Beatty [facility] [address],[place] [address] 08/18/2024 14:24:48 08/18/2024 15:14:09 Routine care 401437391 Z34.93 [id number] [facility] [address],[place] [address] 09/01/2024 14:10:36 09/01/2024 15:14:22 Past history of pre-eclampsia 9104941393 68255 Z87.59 Z3A.33 [id number] Carrie Beatty [facility] [address],[place] [address] 09/01/2024 14:10:49 09/01/2024 15:57:34 Gestation period, 33 weeks 01104824 Z3A.33 Health Concerns Section Related Observation LastModified by Organization Detai ls LastModified Time None Recorded Concern Status LastModified by Organization Details LastModified Time None Recorded Advance Directives Directive None Recorded Payers Encounter Date Sequence Insurance Name Policy Number Policy Ruvalcaba Covered Member ID Ruvalcaba Member ID Guarantor Name 07/09/2024 2 [place] [facility] Selina Jean Baptiste Hanks Selina Hanks 07/09/2024 1 [facility] [id number] [place] [id number] Selina Hanks 08/04/2024 2 [place] [facility] Selina Markel Hanks Selina Hanks 08/04/2024 1 [facility] [id number] Bk Markel Hanks [id number] Selina Hanks 08/18/2024 2 [place] [facility] Selina J Hanks Selina Hanks 08/18/2024 1 [facility] [id number] Bk Markel Hanks [id number] Selina Hanks 09/01/2024 2 [place] [facility] Selina J Hanks Selina Hanks 09/01/2024 1 [facility] [id number] Bk Markel Hanks [id number] Selina Hanks 09/01/2024 2 [place] [facility] Selina J Hanks Selina Hanks 09/01/2024 1 [facility] [id number] Bk Markel Hanks [id number] Selina Hanks OBGyn Episode Ob Episode Information Episode Created Date Number of Fetuses Patient Bloodtype Patient rh Status Prepregnancy Weight lbs Domestic Partner Domestic Partner Phone Father Name [employer] Person Status 07/04/19 23 1 O Positive 157 CLOSED Fetus Data First Name Last Name Admitted to NICU Weight (g) Sex Living Outcome Pediatric Complications Fetus ID Race Codes Race Delivery Type 3146.79 45 [id number] Primary Problems Problem Notes Problem Name Start Date End Date Resolution Snomed Code Not e Breech presentation [id number] footling-CS 01/08 Uterine size for dates discrepancy 11/20/2022 389202313 Anemia 764797277 slowfe 1ta b daily Enrrique Calculation Initial Enrrique Date Initial Exam Date Initial Exam Provider Initial Ultrasound Date Last Menstrual Period Date Ultra Sound Weeks Gestation 01/15/2023 07/04/2022 06/12/2022 03/13/2022 9 Eighteen To Twenty Week Enrrique Update Ultra Sound Date Fundal Height At Umbil Quickening Date Ultra Sound Latest Weeks Gestation Final Enrrique Confirmed By Final Enrrique Confirmed Date Final Enrrique Date Ultra Sound Latest Days Gestation 0 [email or web address] 07/04/2022 01/16/20 23 0 Pre-nik Flowsheet Flowsheet Date 07/04/2022 Wiley Score Blood Edema Fundus Height Fundus Units Glucose Ketones Leukocytes Nitrite Labor Signs Protein Cervic Dilation Cervic Effacement Cervic Station 12 Type Weight in lbs Pre/Post Dialysis Refused Weight 156.840719874346 BP Diastolic BP Location Tested BP Systolic BP Type 77 R arm 126 sitting Fetus Heart Rate Present A 156 Fetus Movement Comments this patient is a 17 old gra vivek 1 at 12 weeks gestation who presents for initial care. She is vaccinated. She was given the rest of the vaccine recommendations. She is vaccinated for COVID. She has no medical problems that are concern in this . She has no complaints today. We discussed care in detail she will begin routine care. Flowsheet Date 08/01/2022 Wiley Score Blood Edema Fundus Height Fundus Units Glucose Ketones Leukocytes Nitrite Labor Signs Protein Cervic Dilation Cervic Effacement Cervic Station neg none none trace Type Weight in lbs Pre/Post Dialysis Refused Weight 158.375332172106 BP Diastolic BP Location Tested BP Systolic BP Type 71 112 Fetus Heart Rate Present A 149 Fetus Movement A Yes Comments Doing well. Nausea and fatig ue improved. Will do afp today. Plan to return in 4 weeks for routine ob visit and baseline anatomy scan. Flowsheet Date 08/29/2022 Wiley Score Blood Edema Fundus Height Fundus Units Glucose Ketones Leukocytes Nitrite Labor Signs Protein Cervic Dilation Cervic Effacement Cervic Station Type Weight in lbs Pre/Post Dialysis Refused BP Diastolic BP Location Tested BP Systolic BP Type Fetus Heart Rate Present Fetus Movement Comments Flowsheet Date 08/29/2022 Wiley Score Blood Edema Fundus Height Fundus Units Glucose Ketones Leukocytes Nitrite Labor Signs Protein Cervic Dilation Cervic Effacement Cervic Station neg trace none trace Type Weight in lbs Pre/Post Dialysis Refused Weight 160.263702312021 BP Diastolic BP Location Tested BP Systolic BP Type 75 112 Fetus Heart Rate Present Fetus Movement A Yes Comments Doing well. Baseline anatomy today. Will repeat in 4 weeks for additional views. Encouraged to start thinking about preferences, childbirth classes and pedi. Flowsheet Date 09/27/2022 Wiley Score Blood Edema Fundus Height Fundus Units Glucose Ketones Leukocytes Nitrite Labor Signs Protein Cervic Dilation Cervic Effacement Cervic Station neg none none trace Type Weight in lbs Pre/Post Dialysis Refused Weight 160.977255036088 BP Diastolic BP Location Tested BP Systolic BP Type 68 112 Fetus Heart Rate Present A 150 Fetus Movement A Yes Comments Doing well. GCt next. Discus s Tdap next. Rh pos. No concerns. Flowsheet Date 09/27/2022 Wiley Score Blood Edema Fundus Height Fundus Units Glucose Ketones Leukocytes Nitrite Labor Signs Protein Cervic Dilation Cervic Effacement Cervic Station Type Weight in lbs Pre/Post Dialysis Refused BP Diastolic BP Location Tested BP Systolic BP Type Fetus Heart Rate Present Fetus Movement Comments Flowsheet Date 10/22/2022 Wiley Score Blood Edema Fundus Height Fundus Units Glucose Ketones Leukocytes Nitrite Labor Signs Protein Cervic Dilation Cervic Effacement Cervic Station Type Weight in lbs Pre/Post Dialysis Refused BP Diastolic BP Location Tested BP Systolic BP Type Fetus Heart Rate Present Fetus Movement Comments Flowsheet Date 10/22/2022 Wiley Score Blood Edema Fundus Height Fundus Units Glucose Ketones Leukocytes Nitrite Labor Signs Protein Cervic Dilation Cervic Effacement Cervic Station neg trace none trace Type Weight in lbs Pre/Post Dialysis Refused Weight 172.174766744395 BP Diastolic BP Location Tested BP Systolic BP Type 75 112 Fetus Heart Rate Present A 140 Fetus Movement A Yes Comments Doing well. NO concerns. US toady anatomy now complete and wnl. 30%. GCT today. Discussed and encouraged Tdap. Flowsheet Date 11/05/2022 Wiley Score Blood Edema Fundus Height Fundus Units Glucose Ketones Leukocytes Nitrite Labor Signs Protein Cervic Dilation Cervic Effacement Cervic Station neg trace 27 none trace Type Weight in lbs Pre/Post Dialysis Refused Weight 172.409902226244 BP Diastolic BP Location Tested BP Systolic BP Type 73 112 Fetus Heart Rate Present A 155 Fetus Movement A Yes Comments Doing well. Taking iron for anemia. GCT was wnl. Will do Tdap. Precautions given. Flowsheet Date 11/19/2022 Wiley Score Blood Edema Fundus Height Fundus Units Glucose Ketones Leukocytes Nitrite Labor Signs Protein Cervic Dilation Cervic Effacement Cervic Station neg trace 29 none trace Type Weight in lbs Pre/Post Dialysis Refused Weight 173.976567297478 BP Diastolic BP Location Tested BP Systolic BP Type 78 124 Fetus Heart Rate Present A 140 Fetus Movement A Yes Comments Dong ok. 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 US next couple visits for S<D. Precautions given. Flowsheet Date 12/04/2022 Wiley Score Blood Edema Fundus Height Fundus Units Glucose Ketones Leukocytes Nitrite Labor Signs Protein Cervic Dilation Cervic Effacement Cervic Station neg trace 34 none trace Type Weight in lbs Pre/Post Dialysis Refused Weight 180.427599520334 BP Diastolic BP Location Tested BP Systolic BP Type 75 116 Fetus Heart Rate Present A 150 Fetus Movement A Yes Comments patient is having BH contrac tions and swelling. reviewed ptl precautions, preadmission scheduled, tdap done, gbs at next visit in 2 weeks Flowsheet Date 12/17/2022 Wiley Score Blood Edema Fundus Height Fundus Units Glucose Ketones Leukocytes Nitrite Labor Signs Protein Cervic Dilation Cervic Effacement Cervic Station Type Weight in lbs Pre/Post Dialysis Refused BP Diastolic BP Location Tested BP Systolic BP Type Fetus Heart Rate Present Fetus Movement Comments Flowsheet Date 12/17/2022 Wiley Score Blood Edema Fundus Height Fundus Units Glucose Ketones Leukocytes Nitrite Labor Signs Protein Cervic Dilation Cervic Effacement Cervic Station neg trace none trace 0cm Type Weight in lbs Pre/Post Dialysis Refused Weight 184.230319396006 BP Diastolic BP Location Tested BP Systolic BP Type 80 124 Fetus Heart Rate Present A 125 Fetus Movement A Yes Comments Doing well, no contractions. On US today 42% but footling breech. Discussed cannot attempt ECV if footling breech, discussed CS if remains breech. Will schedule for 01/08, will cancel if flips to vertex. Will discuss CS in depth next visit. GBS done and discussed today. Flowsheet Date 12/24/2022 Wiley Score Blood Edema Fundus Height Fundus Units Glucose Ketones Leukocytes Nitrite Labor Signs Protein Cervic Dilation Cervic Effacement Cervic Station neg trace 36 none trace Type Weight in lbs Pre/Post Dialysis Refused Weight 188.173195982660 BP Diastolic BP Location Tested BP Systolic BP Type 88 146 80 140 78 142 Fetus Heart Rate Present A 150 Fetus Movement A Yes Comments Doing well. Denies LIU/BV/EP. Bps mildly elevated today. Will do PIH labs. Precautions given. GBS neg. Discussed CS procedure, recovery, risks. Flowsheet Date 01/10/2023 Wiley Score Blood Edema Fundus Height Fundus Units Glucose Ketones Leukocytes Nitrite Labor Signs Protein Cervic Dilation Cervic Effacement Cervic Station Type Weight in lbs Pre/Post Dialysis Refused Weight 168.896383632666 BP Diastolic BP Location Tested BP Systolic BP Type 81 141 Fetus Heart Rate Present Fetus Movement Comments Menstrual History Last Menstrual Date Menses Monthly On Bcp Conception Prior Menses Frequency Hcg Plus Date Menarche Onset Age 1003/13/2022 Genetic Screening And Infection History Question Response Note Mental Retardation/Autism false Patient's Age Will Be 35 Years Or Older At Estim ated Date of Delivery false Thalassemia (Yakut, English, Mediterranean, Or Background): MCV < 80 false Neural Tube Defect (Meningomyelocele, Spina Bifi da, Or Anencephaly) false Congenital Heart Defect false Down Syndrome false Balta-Sachs (eg, Mandaeism, Cajun, North Korean-[place]) f alse Julia Disease false Sickle Cell Disease Or Trait () false Hemophilia Or Other Blood Disorders false Muscular Dystrophy false Cystic Fibrosis false Williams's Ch[place] false Intellectual Disability/Autism false If Yes, Was Person Tested For Fragile X? false Other Inherited Genetic Or Chromosomal Disorder false Maternal Metabolic Disorder (eg, Type 1 Diabetes , PKU) false Patient Or Baby's Father Had A Child With Defects Not Listed Above false Recurrent Loss, Or A Stillbirth false Medications (including Suppl ements, Vitamins, Herbs, OTC Drugs), Illicit/Recreational Drugs, Alcohol false If Yes, Agent(s) And Strength/Dosage false Any Other Genetic History false Live With Someone With TB Or Exposed To TB false Patient Or Partner Has History Of Genital Herpes false Rash Or Viral Illness Since Last Menstrual Perio d false History Of STD, Gonorrhea, Chlamydia, HPV, Syphi lis false Other Infection History false History of HIV false History of Hepatitis false Prior GBS-infected child false Hemoglobinopathy Or Carrier false Other Structural Defect false Recent Travel History Outside of Country false Delivery Information Delivery Date Delivery Type Labor Anesthesia Weeks Gestation Incision Type Labor Labor Length Hrs Delivered By Post Complications Tubal Sterilization Discharge Date Comments 3 Induce d 38 Low Transvers e false Roula Gilbert MD breech Discharge Information Feeding Method Contraceptive Method Maternal HG B and HCT Levels Ob Episode Information Episode Created Date Number of Fetuses Patient Bloodtype Patient rh Status Prepregnancy Weight lbs Domestic Partner Domestic Partner Phone Father Name [employer] Person Status 04/09/20 24 1 O Positive 179 [place] OPEN Fetus Data First Name Last Name Admitted to NICU Weight (g) Sex Living Outcome Pediatric Complications Fetus ID Race Codes Race Delivery Type [id number] Problems Problem Notes Problem Name Start Date End Date Resolution Snomed Code Not e section 46082211 amilcar ech/preeclampsia Past history of pre-eclampsia [id number] bASA daily Impaired glucose tolerance 4346475 3hr gtt schedul ed Enrrique Calculation Initial Enrrique Date Initial Exam Date Initial Exam Provider Initial Ultrasound Date Last Menstrual Period Date Ultra Sound Weeks Gestation 10/18/2024 03/10/2024 Carrie Beatty 03/10/2024 01/12/2024 8 Eighteen To Twenty Week [...] Weight in lbs Pre/Post Dialysis Refused Weight 185.656495970796 BP Diastolic BP Location Tested BP Systolic [...] Type Weight in lbs Pre/Post Dialysis Refused 184.937118512092 BP Diastolic BP Location Tested BP Systolic [...] Type Weight in lbs Pre/Post Dialysis Refused 187.537239947746 BP Diastolic BP Location Tested BP Systolic [...] Type Weight in lbs Pre/Post Dialysis Refused 193.88862465394 BP Diastolic BP Location Tested BP Systolic [...] Type Weight in lbs Pre/Post Dialysis Refused 187.979195117586 BP Diastolic BP Location Tested BP Systolic [...] Type Weight in lbs Pre/Post Dialysis Refused 195.539191797046 BP Diastolic BP Location Tested BP Systolic [...] Type Weight in lbs Pre/Post Dialysis Refused 199.764352171215 BP Diastolic BP Location Tested BP Systolic [...]
--- OUTSIDE RECORDS SUMMARY | 2024-09-02 13:08 | XMS_ITS | Continuity of Care Document ---
Author Organization [facility] [place] Address [address] [place] [address] Assessment No assessment recorded. Plan of Treatment Reminders Order Date Submit [...] obstetr ic, follow- up 2024 025 [email or web address] [place], [address], [place], [address], 09/01/2024 19:02:19 Medication Orders None recorde d. Patient TargetsNo targets recorded. Patient InstructionsNo instructions recorded. Reason for Referral None Reported. Results Created Date Observation Date Name Description Value Unit Range Abnormal Flag Note LastModifiedBy Organization Detail LastModifiedTime 04/09/2004/09/2024 US, obste tric, nucha l trans lucen cy No observ ation record ed. [facility] [address], [place], [address], 04/09/2024 13:56:24 04/09/2004/09/2024 US, obste tric, nucha l trans lucen cy No observ ation record ed. [email or web address] Arianna [address], [place], [address], 04/09/2024 21:34:13 06/11/19 25 06/11/2024 US, obste tric, 2nd or 3rd trime ster No observ ation record ed. [email or web address] [place] [address], [place], [address], 06/11/2024 17:06:59 06/11/19 25 06/11/2024 US, obste tric, 2nd or 3rd trime ster No observ ation record ed. [email or web address] [address], [place], [address], 06/11/2024 23:27:04 07/24/19 25 07/24/2024 imagi ng/di agnos tic resul t No observ ation record ed. [facility] [address], [place], [address], 07/25/2024 07:21:51 09/02/19 25 09/01/2024 US, obste tric, follo w-up No observ ation record ed. [email or web address] [place] [address], [place], [address], 09/01/2024 18:21:06 09/02/19 25 09/01/2024 US, obste tric, follo w-up No observ ation record ed. [email or web address], [place], [address], 09/01/2024 15:16:12 Result Notes None recorded. Problems Name Problem SNOMED Code Status Onset Date Resolution Date Notes Provider Name and Address Organization Details Recorded Time Pregnanc y 30729687 Completed 202201/10/2023 Ariana Davey [facility], [place] - [facility] 11/01/202 4 13:17:11 Uterine size for dates discrepa ncy 042471334 Completed 2022 Cat Garza null, [facility] 3 12:30:20 Anemia 945914563 Completed slowfe 1tab daily Cat Garza null, [facility] 3 12:30:20 Breech presenta tion 1868130 Completed [place] -CS 01/08 Catellie Garza null, [facility] 3 12:30:20 Pregnanc y 59600375 Active 2023 Ariana Davey null, [facility] 4 13:17:11 Past pregnanc y history of pre-ecla mpsia 3649197262 59158 Active bASA daily Carrie Beatty CNM [address], [place], [address], [facility] 4 13:56:45 section Active breech/p reeclamp marissa Carrie Beatty CNM [address], [place], [address], [facility] 4 13:55:06 Impaired glucose toleranc e 5723952 Active 3hr gtt schedule d Alisia Arrington null, [facility] 5 12:02:42 Impaired glucose toleranc e 5336250 Active 3hr gtt schedule d Alisia Arrington null, [facility] 5 12:02:41 Problem Notes None recorded. Procedures Surgical History Date Name Laterality Status Provider Name and Address Organization Details Recorded Time 3 SECTION (SURG) completed Anna Chow [facility] 01/02/2023 10:39:04 2 IUD Removal completed JAZ Ojeda- [address], [place], [address], [place] [facility] 03/11/2022 09:51:40 IUD Insertion completed Angelina Sifuentes [facility] [address], [place], [address], [place] [facility] 04/12/2021 10:59:44 Imaging Results Imaging Date Name Status LastModified by Organiz ation Details LastModified Time 09/01/2024 US, obstetric, follow-up completed [email or web address] [place] [address], [place], [address], 09/01/2024 18:21:06 Procedure Notes None recorded. Medical Equipment None [...] Address Organization Details Last Updated DateTime 5 61232.8 8163 g 95 % 32.1 kg/m2 167.64 cm 114 mm[Hg] 68 mm[Hg] Ariana Davey [facility] 5 15:28:28 Social History Question Answer Notes LastModified by Organizat ion Details LastModified Time Tobacco Smoking Status Never Smoker Margaret Gibson [facility] 12/15/2019 10:08:23 What Is Your Level [...] COVID-19 While That Case Was Ill? No [email or web address] Information n ot available 06/12/2022 In The 14 Days Before Symptom Onset, Have You Had Close Contact With A Person Who Is Under Investigation For COVID-19 While That Person Was Ill? No [email or web address] Information not available 06/12/2022 Have You Been To An Area Known To Be High Risk For COVID-19? No [email or web address] Information not available 06/12/2022 Are You Currently Employed? No Information not available 10/10/2020 Are You Deaf Or Do You Have Serious Difficulty Hearing? No Information not available 10/09/2020 What Type Of Diet Are You Following? REGULAR Information n ot available 10/09/2020 What Is The Highest Grade Or Level Of School You Have Completed Or The Highest Degree You Have Received? [id number] Information not available 10/10/2020 Do You Use Your Seat Belt Or Car Seat Routinely? Yes Information not available 10/09/2020 Are You Sexually Active? No Information not available 10/10/2020 Do You Have Smoke And Carbon Monoxide Detectors In Your Home? Yes Information not available 10/09/2020 Do You Feel Stressed (tense, Restless, Nervous, Or Anxious, Or Unable To Sleep At Night)? [id number] Information not available 10/09/2020 Do You Use Any Illicit Or Recreational Drugs? No Information not available 10/09/2020 Do You Use Sunscreen Routinely? Yes Information not available 10/09/2020 Has Tobacco Cessation Counseling Been Provided? No [email or web address] Information not available 06/12/2022 Do You Or Have You Ever Used Any Other Forms Of Tobacco Or Nicotine? No [email or web address] Information not available 06/12/2022 Sex: Unknown Functional Status Question Answer Note LastModified by Organizat ion Details LastModified Time Do you have difficulty walking or climbing stairs? No [email or web address] Information not available 06/14/2022 Are you able [...] mcg/0.3 mL dose 12/09/2020 completed [facility] 01/11/2021 11:07:15 Past Encounters Encounter ID Performer Location Encounter Start Date Encounter Closed Date Diagnosis/Indication Diagnosis SNOMED-CT Code Diagnosis ICD10 Code Diagnosis Note [id number] [facility] [address],[place] [address] 08/04/2024 13:32:49 08/04/2024 14:34:34 Gestation period, 29 weeks 86576858 Z3A.29 [id number] Carrie Beatty [facility] [address] [place] [address] 08/18/2024 14:24:48 08/18/2024 15:14:09 Routine care 111117686 Z34.93 [id number] [facility] [address] [place] [address] 09/01/2024 14:10:36 09/01/2024 15:14:22 Past history of pre-eclampsia 2671670631 75612 Z87.59 Z3A.33 [id number] Carrie Beatty [facility] [address] [place] [address] 09/01/2024 14:10:49 09/01/2024 15:57:34 Gestation period, 33 weeks 98580531 Z3A.33 Health Concerns Section Related Observation LastModified by Organization Detai ls LastModified Time None Recorded Concern Status LastModified by Organization Details LastModified Time None Recorded Payers Encounter Date Sequence Insurance Name Policy Number Policy Ruvalcaba Covered Member ID Ruvalcaba Member ID Guarantor Name 09/01/2024 2 [place] [employer] Selina Jean Baptiste Ayad [id number] Selina Ayad 09/01/2024 1 [facility] [id number] Bk Lion [id number] Selina Lion OBGyn Episode Ob Episode Information Episode Created Date Number of Fetuses Patient Bloodtype Patient rh Status Prepregnancy Weight lbs Domestic Partner Domestic Partner Phone Father Name 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 Status 04/09/20 24 1 O Positive 179 Juancho Francis OPEN Fetus Data First Name Last Name Admitted to NICU Weight (g) Sex Living Outcome Pediatric Complications Fetus ID Race Codes Race Delivery Type [id number] Problems Problem Notes Problem Name Start Date End Date Resolution Snomed Code Not e section 71926029 amilcar ech/preeclampsia Past history of pre-eclampsia 557639844643733 bASA daily Impaired glucose tolerance 3267164 3hr gtt schedul ed Enrrique Calculation Initial [...] Weight in lbs Pre/Post Dialysis Refused Weight 185.081958875390 BP Diastolic BP Location Tested BP Systolic [...] Type Weight in lbs Pre/Post Dialysis Refused 184.225591100702 BP Diastolic BP Location Tested BP Systolic [...] Type Weight in lbs Pre/Post Dialysis Refused 187.516390628360 BP Diastolic BP Location Tested BP Systolic [...] Type Weight in lbs Pre/Post Dialysis Refused 193.09659465821 BP Diastolic BP Location Tested BP Systolic [...] Type Weight in lbs Pre/Post Dialysis Refused 187.985067063554 BP Diastolic BP Location Tested BP Systolic [...] Type Weight in lbs Pre/Post Dialysis Refused 195.776947165546 BP Diastolic BP Location Tested BP Systolic [...] Type Weight in lbs Pre/Post Dialysis Refused 199.444299579559 BP Diastolic BP Location Tested BP Systolic [...]
[2024-09-02 13:15] VITALS: BP 104/65; PULSE 87
[2024-09-02 13:25] LABS: OBXCEM ROM Plus Negative (Negative)
[2024-09-02 13:26] VITALS: PULSE 83
== END 2024-09-02 13:26 | disposition home or self-care (01) ==
LOC: ANHOBOP 12:22 → ANHOBPP 12:23
PROVIDERS: PCP Physician Assistant; Visit Provider Advanced Practice Midwife
DX: O42.90 Premature rupture of membranes, unspecified as to length of time between rupture and onset of labor, unspecified weeks of gestation (principal)
CPT/HCPCS: 59025; 84112; 99199

== ENCOUNTER 2024-09-15 19:22 | Outpatient (CLI) | payer OTHER, MEDICAID, SELFPAY ==
--- NOTE | 2024-09-15 19:22 | PC.NURSE ---
Pt arrives to unit with leaking of fluid.
--- NOTE | 2024-09-15 19:55 | PC.NURSE ---
Called Doyle Beatty CNM, update on pt, ROM plus negative, cervical exam, and spotting with wiping at home, no vaginal bleeding at this time, blood pressure, reactive tracing, and no contractions. Orders received to discharge pt with instructions to keep next scheduled appointment and when to return to the unit.
[2024-09-15 19:57] VITALS: BP 118/72; PULSE 106
--- OUTSIDE RECORDS SUMMARY | 2024-09-15 20:06 | XMS_ITS | Continuity of Care Document ---
Author Organization [facility], [place] Address [address] [place] [address] Assessment Encounter Date Assessment Date Assessment LastModified by Organization Details LastModified Time 09/15/2024 09/15/2024 Patient is _35__weeks . Discussed plan. Not available 09/15/2024 18:03:40 Plan of Treatment Reminders Order Date Submit Date Provider Last Modified By Organization Details Last Modified Time Details Appointments OB ROUTINE 2024 04:45P M Carrie Beatty CNM Not available Not available Not available U/S OB GROWTH 2024 11:00A M ULTRASOUND Not available Not available Not available OB ROUTINE 2024 11:45A M Carrie Beatty CNM Not available Not available Not available Lab strepto coccus group B, culture , unspeci fied specime n 2024 04 025 [facility] (Lab), [address], [place], [address], 09/15/2024 18:01:17 Referral None recorde d. Procedures None recorde d. Surgeries None recorde d. Imaging None recorde d. Medication Orders None recorde d. Patient TargetsNo targets recorded. Patient InstructionsNo instructions recorded. Reason for Referral None Reported. Results Created Date Observation Date Name Description Value Unit Range Abnormal Flag Note LastModifiedBy Organization Detail LastModifiedTime 04/09/20 24 04/09/2024 US, obste tric, nucha l trans lucen cy No observ ation record ed. [email or web address] [address], [place], [address], 04/09/2024 13:56:24 04/09/20 24 04/09/2024 US, obste tric, nucha l trans lucen cy No observ ation record ed. [email or web address] [address], [place], [address], 04/09/2024 21:34:13 06/11/19 25 06/11/2024 US, obste tric, 2nd or 3rd trime ster No observ ation record ed. [email or web address] [address], [place], [address], 06/11/2024 17:06:59 06/11/19 25 06/11/2024 US, obste tric, 2nd or 3rd trime ster No observ ation record ed. [email or web address] [address], [place], [address], 06/11/2024 23:27:04 07/24/19 25 07/24/2024 imagi ng/di agnos tic resul t No observ ation record ed. [address], [place], [address], 07/25/2024 07:21:51 09/02/19 25 09/01/2024 US, obste tric, follo w-up No observ ation record ed. [email or web address] [place] [address], [place], [address], 09/01/2024 18:21:06 09/02/19 25 09/01/2024 US, obste tric, follo w-up No observ ation record ed. [email or web address] [address], [place], [address], 09/02/2024 16:55:38 09/03/19 25 09/02/2024 imagi ng/di agnos tic resul t No observ ation record ed. [facility] [address], [place], [address], 09/02/2024 15:41:00 Result Notes None recorded. Problems Name Problem SNOMED Code Status Onset Date Resolution Date Notes Provider Name and Address Organization Details Recorded Time Pregnanc y 09987100 Completed 202201/10/2023 Ariana nelson, [facility] 4 13:17:11 Uterine size for dates discrepa ncy 792264729 Completed 2022 Cat Jackodalis nelson, [facility] 3 12:30:20 Anemia 171384366 Completed slowfe 1tab daily Cat Garza [facility], [facility] 3 12:30:20 Breech presenta tion 8557708 Completed [place] -CS 01/08 Cat Garza [facility], [facility] 3 12:30:20 Pregnanc y 84092441 Active 2023 Ariana nelson, [facility] 4 13:17:11 Past pregnanc y history of pre-ecla mpsia 5348963781 56098 Active bASA daily Carrie Beatty CNM [address], [place], [address], [facility] 4 13:56:45 section Active breech/p reeclamp marissa Carrie Beatty CNM [address], [place], [address], [place] [facility] 4 13:55:06 Impaired glucose toleranc e 6663840 Active 3hr gtt schedule d Alisia nelson, [facility] 5 12:02:42 Impaired glucose toleranc e 3096723 Active 3hr gtt schedule d Alisia nelson, [facility] 5 12:02:41 Problem Notes None recorded. Procedures Surgical History Date Name Laterality Status Provider Name and Address Organization Details Recorded Time 3 SECTION (SURG) completed Anna Chow [facility] 01/02/2023 10:39:04 2 IUD Removal completed Angelina Sifuentes [facility] [address], [place], [address], [facility] 03/11/2022 09:51:40 1 IUD Insertion completed Angelina Sifuentes [facility] [address], [place], [address], [facility] 04/12/2021 10:59:44 Imaging Results None recorded. [...] Available Not Available Vitals Date Recorded Body height Body mass index (BMI) Body mass index (BMI) Percentile per age and sex Body weight Systolic blood pressure Diastolic blood pressure Provider Name and Address Organization Details Last Updated DateTime 5 167.64 cm 32.3 kg/m2 95 % 40236.4 7 g 100 mm[Hg] 69 mm[Hg] Ariana Davey [facility] 5 17:59:19 Social History Question Answer Notes LastModified by [...] COVID-19 While That Case Was Ill? No [email or web address] Information n ot available 06/12/2022 In The 14 Days Before Symptom Onset, Have You Had Close Contact With A Person Who Is Under Investigation For COVID-19 While That Person Was Ill? No [email or web address] Information not available 06/12/2022 Have You Been To An Area Known To Be High Risk For COVID-19? No [email or web address] Information not available 06/12/2022 Are You Currently Employed? No Information not available 10/10/2020 Are You Deaf Or Do You Have Serious Difficulty Hearing? No Information not available 10/09/2020 What Type Of Diet Are You Following? REGULAR Information n ot available 10/09/2020 What Is The Highest Grade Or Level Of School You Have Completed Or The Highest Degree You Have Received? [id number] Information not available 10/10/2020 Do You Use Your Seat Belt Or Car Seat Routinely? Yes Information not available 10/09/2020 Are You Sexually Active? No Information not available 10/10/2020 Do You Have Smoke And Carbon Monoxide Detectors In Your Home? Yes Information not available 10/09/2020 Do You Feel Stressed (tense, Restless, Nervous, Or Anxious, Or Unable To Sleep At Night)? FS05189-4 Information not available 10/09/2020 Do You Use Any Illicit Or Recreational Drugs? No Information not available 10/09/2020 Do You Use Sunscreen Routinely? Yes Information not available 10/09/2020 Has Tobacco Cessation Counseling Been Provided? No [email or web address] Information not available 06/12/2022 Do You Or Have You Ever Used Any Other Forms Of Tobacco Or Nicotine? No [email or web address] Information not available 06/12/2022 Sex: Unknown Functional Status Question Answer Note LastModified by Organizat ion Details LastModified Time Do you have difficulty walking or climbing stairs? No Information not available 06/14/2022 Are you able [...] (Food, seasonal, environmental ) N Other N Drug/Latex Allergies/Reactions N Breast Cancer N Blood Transfusion N Dermatologic Disorders N Lung Disease N Defects or Inherited Disease N Breast Problem N Gestational Diabetes N Hematologic disorders N Anesthesia Complications N History of STI N Deep Vein Thrombosis N Polycystic ovary syndrome N Anxiety Disorder N Autoimmune disease N Arthritis N Polyps N Infertility N History of abnormal pap N Acid Reflux (GERD) N Cancer N Varicosities N Stroke N Neurologic/Epilepsy N Endometriosis N High Cholesterol N Headaches N Fibromyalgia N Kidney Disease N Heart Problems N Thyroid Problems N Kidney or Bladder Problems N GI Problems N Eating Disorder [...] mcg/0.3 mL dose 12/09/2020 completed Dinora Fournier [facility] 01/11/2021 11:07:15 Past Encounters Encounter ID Performer Location Encounter Start Date Encounter Closed Date Diagnosis/Indication Diagnosis SNOMED-CT Code Diagnosis ICD10 Code Diagnosis Note [id number] Carrie Beatty [facility] [address],[place] [address] 08/18/2024 14:24:48 08/18/2024 15:14:09 Routine care 602928010 Z34.93 [id number] [facility] [address] [address] 09/01/2024 14:10:36 09/01/2024 15:14:22 Past history of pre-eclampsia 4973147204 30794 Z87.59 Z3A.33 [id number] Carrie Beatty [facility] [address],[place] [address] 09/01/2024 14:10:49 09/01/2024 15:57:34 Gestation period, 33 weeks 36237773 Z3A.33 [id number] [facility] [address] [address] 09/15/2024 17:27:19 09/15/2024 20:06:47 screening 140048447 Z36.85 Gestation period, 35 weeks 96363874 Z3A.35 Health Concerns Section Related Observation LastModified by Organization Detai ls LastModified Time None Recorded Concern Status LastModified by Organization Details LastModified Time None Recorded Payers Encounter Date Sequence Insurance Name Policy Number Policy Ruvalcaba Covered Member ID Ruvalcaba Member ID Guarantor Name 09/15/2024 2 [facility] Selina Lion [id number] Selina Lion 09/15/2024 1 [facility] [id number] Bk Jean Baptiste Ayad [id number] Selina Lion OBGyn Episode Ob Episode Information Episode Created Date Number of Fetuses Patient Bloodtype Patient rh Status Prepregnancy Weight lbs Domestic Partner Domestic Partner Phone 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 Status 04/09/20 24 1 O Positive 179 Juancho Francis OPEN Fetus Data First Name Last Name Admitted to NICU Weight (g) Sex Living Outcome Pediatric Complications Fetus ID Race Codes Race Delivery Type [id number] Problems Problem Notes Problem Name Start Date End Date Resolution Snomed Code Not e section 45452679 amilcar ech/preeclampsia Past history of pre-eclampsia 164518145591011 bASA daily Impaired glucose tolerance 9196657 3hr gtt schedul ed Enrrique Calculation Initial [...] Date Ultra Sound Latest Days Gestation 0 [email or web address] 09/16/2024 10/19/19 25 0 Pre-nik Flowsheet Flowsheet Date 04/09/2024 Wiley Score Blood Edema Fundus Height Fundus Units Glucose Ketones Leukocytes Nitrite Labor Signs Protein Cervic Dilation Cervic Effacement Cervic Station neg none none trace Type Weight in lbs Pre/Post Dialysis Refused Weight 185.527590520295 BP Diastolic BP Location Tested BP Systolic [...] Type Weight in lbs Pre/Post Dialysis Refused 184.650419855234 BP Diastolic BP Location Tested BP Systolic [...] Type Weight in lbs Pre/Post Dialysis Refused 187.555875029571 BP Diastolic BP Location Tested BP Systolic [...] Type Weight in lbs Pre/Post Dialysis Refused 193.73223856399 BP Diastolic BP Location Tested BP Systolic [...] Type Weight in lbs Pre/Post Dialysis Refused 187.750461216000 BP Diastolic BP Location Tested BP Systolic [...] Type Weight in lbs Pre/Post Dialysis Refused 195.520302404363 BP Diastolic BP Location Tested BP Systolic [...] Type Weight in lbs Pre/Post Dialysis Refused 199.335432851136 BP Diastolic BP Location Tested BP Systolic BP Type 68 114 Fetus Heart Rate Present Fetus Movement A Yes Comments Patient is having some press ure, pain, contractions and swelling. efw 18%, +FM vertex! doing well rpt growth in 4 weeks, has preadmit scheduled. Flowsheet Date 09/15/2024 Wiley Score Blood Edema Fundus Height Fundus Units Glucose Ketones Leukocytes Nitrite Labor Signs Protein Cervic Dilation Cervic Effacement Cervic Station neg trace 1cm 70% -2 Type Weight in lbs Pre/Post Dialysis Refused Weight 200.572321278144 BP Diastolic BP Location Tested BP Systolic BP Type 69 100 Fetus Heart Rate Present Fetus Movement A Yes Comments Patient is having back pain, contractions, discharge and swelling. vertex, low, +FM precautions and education GBS collected f/u one week Menstrual History Last Menstrual Date Menses Monthly [...]
--- OUTSIDE RECORDS SUMMARY | 2024-09-15 20:06 | XMS_ITS | Data Portability ---
Author Organization [facility] Address [address] [place] [address] Assessment Encounter Date Assessment Date Assessment LastModified by Organization Details LastModified Time 08/04/2024 08/04/2024 Patient is _29__weeks . Discussed plan. [email or web address] Not available 08/04/2024 14:26:30 08/18/2024 08/18/2024 Patient is __31_weeks . Discussed plan. [email or web address] Not available 08/18/2024 15:11:34 09/01/2024 09/01/2024 Patient is _33__weeks . Discussed plan. [email or web address] Not available 09/01/2024 15:35:50 09/15/2024 09/15/2024 Patient is _35__weeks . Discussed plan. [email or web address] Not available 09/15/2024 18:03:40 Plan of Treatment [...] culture , unspeci fied specime n 2024 025 [facility] (Lab), [address], [place], [address], 09/15/2024 18:01:17 Referral None recorde d. Procedures None recorde d. Surgeries None recorde d. Imaging US, obstetr ic, follow- up 2024 025 [email or web address], [address], [address], [place], [address], 09/01/2024 19:02:19 Medication Orders None recorde d. Patient TargetsNo targets recorded. Patient InstructionsNo instructions recorded. Reason for Referral None Reported. Results Created Date Observation Date Name Description Value Unit Range Abnormal Flag Note LastModifiedBy Organization Detail LastModifiedTime 08/04/1908/04/2024 HEMAT OCRIT (HCT) HCT 37.3 % (based on docume nted legal sex) 34.0-4 5.0 Not Available [facility] (Lab) [address], [place], [address], 08/05/2024 15:44:40 08/04/19 25 08/04/2024 HEMOG LOBIN (HGB) HGB 12.3 g/dL (based on docume nted legal sex) 11.6-1 5.4 Not Available [facility] (Lab) [address], [place], [address], 08/05/2024 15:44:40 08/04/19 25 08/04/2024 GTT - GESTA RICHARD L SCREE N, ACOG OB glucose, 1 hour screen 164 mg/dL 70-135 high Not Available [facility] (Lab) [address], [place], [address], 08/05/2024 15:44:41 08/04/19 25 08/04/2024 HIV 1/2 ANTIG EN/AN TIBOD Y, REFLE X CONFI RMATI ON HIV antigen/anti body Nonrea ctive nonrea ctive HIV-1 antig en and HIV-1 /HIV- 2 antib odies were not detec wilfredo. No labor atory evide nce of HIV infec tion. Not Available [facility] (Lab) [address], [place], [address], 08/05/2024 15:44:41 08/04/19 25 08/04/2024 RPR SCREE N, REFLE X TITER /CONF IRMAT ION RPR qualitative Nonrea ctive nonrea ctive Not Available [facility] (Lab) [address], [place], [address], 08/05/2024 15:44:41 08/10/19 25 08/09/2024 GTT - GESTA RICHARD L, 3 HOUR, ACOG glucose, fasting acog 79 mg/dL 70-94 Not Available [facility] (Lab) [address], [place], [address], 08/10/2024 04:59:42 08/10/19 25 08/09/2024 GTT - GESTA RICHARD L, 3 HOUR, ACOG glucose, 1 hour acog 175 mg/dL 70-179 Not Available [facility] (Lab) [address] [place], [address], 08/10/2024 04:59:42 08/10/19 25 08/09/2024 GTT - GESTA RICHARD L, 3 HOUR, ACOG glucose, 2 hour acog 140 mg/dL 70-154 Not Available [facility] (Lab) [address], [place], [address], 08/10/2024 04:59:42 08/10/19 25 08/09/2024 GTT - GESTA RICHARD L, 3 HOUR, ACOG glucose, 3 hour acog 100 mg/dL 70-139 Not Available [facility] (Lab) [address], [place], [address], 08/10/2024 04:59:42 07/24/19 25 07/24/2024 imagi ng/di agnos tic resul t No observ ation record ed. [facility] [address], [place], [address], 07/25/2024 07:21:51 09/02/19 25 09/01/2024 US, obste tric, follo w-up No observ ation record ed. [email or web address] [address], [place], [address], 09/01/2024 18:21:06 09/02/19 25 09/01/2024 US, obste tric, follo w-up No observ ation record ed. [facility] [address], [place], [address], 09/02/2024 16:55:38 09/03/19 25 09/02/2024 imagi ng/di agnos tic resul t No observ ation record ed. [facility] [address], [place], [address], 09/02/2024 15:41:00 Result Notes None recorded. Problems Name Problem SNOMED Code Status Onset Date Resolution Date Notes Provider Name and Address Organization Details Recorded Time Pregnanc y 45566032 Completed 202201/10/2023 Ariana nelson [facility] 4 13:17:11 Uterine size for dates discrepa ncy 685953929 Completed 2022 Cat nelson [facility] 3 12:30:20 Anemia 522716481 Completed slowfe 1tab daily Cat Garza [facility] 3 12:30:20 Breech presenta tion 8839244 Completed [place] -[facility] 01/08 Cat nelson [facility] 3 12:30:20 Pregnanc y 43983970 Active 2023 Ariana nelson [facility] 4 13:17:11 Past pregnanc y history of pre-ecla mpsia 5502038665 21135 Active bASA daily Carrie Beatty CNM [address], [place], [address], [facility] 4 13:56:45 section Active breech/p reeclamp marissa Carrie Beatty CNM [address], [place], [address], [facility] 4 13:55:06 Impaired glucose toleranc e 8731592 Active 3hr gtt schedule d Alisia nelson, [facility] 5 12:02:42 Impaired glucose toleranc e 5269005 Active 3hr gtt schedule d Alisia nelson, [facility] 5 12:02:41 Problem Notes None recorded. Procedures Surgical History Date Name Laterality Status Provider Name and Address Organization Details Recorded Time 3 SECTION (SURG) completed Anna Chow [facility] 01/02/2023 10:39:04 2 IUD Removal completed Angelina Sifuentes JOSE ALBERTO- [address], [place], [address], [facility] 03/11/2022 09:51:40 1 IUD Insertion completed Angelina Sifuentes JOSE ALBERTO- [address], [place], [address], [facility] 04/12/2021 10:59:44 Imaging Results Imaging Date Name Status [facility] Details LastModified Time 07/24/2024 imaging/diag nostic result active [facility] [address], [place], [address], 07/25/2024 07:21:51 09/01/2024 US, obstetric, follow-up completed [email or web address] [facility] [address], [place], [address], 09/01/2024 18:21:06 09/01/2024 US, obstetric, follow-up completed [email or web address] [facility] [address], [place], [address], 09/02/2024 16:55:38 09/02/2024 imaging/diag nostic result active [facility] [address], [place], [address], 09/02/2024 15:41:00 Procedure Notes None recorded. Medical Equipment None [...] Depo Not Available Not Available Not Available June FE 06/28 (28) 1 mg-20 mcg (21)/75 [...] 5 167.64 cm 30.2 kg/m2 93 % 21437.7 7319 g 108 mm[Hg] 71 mm[Hg] Ariana Davey [facility] 5 14:06:36 Date Recorded Body weight Body mass index (BMI) Body mass index (BMI) Percentile per age and sex Body height Systolic blood pressure Diastolic blood pressure Provider Name and Address Organization Details Last Updated DateTime 5 23068.5 1215 g 31.5 kg/m2 94 % 167.64 cm 114 mm[Hg] 65 mm[Hg] Ariana Davey [facility] 5 15:01:28 Date Recorded Body weight Body mass index (BMI) Percentile per age and sex Body mass index (BMI) Body height Systolic blood pressure Diastolic blood pressure Provider Name and Address Organization Details Last Updated DateTime 5 20070.8 8163 g 95 % 32.1 kg/m2 167.64 cm 114 mm[Hg] 68 mm[Hg] Ariana Davey [facility] 5 15:28:28 Date Recorded Body height Body mass index (BMI) Body mass index (BMI) Percentile per age and sex Body weight Systolic blood pressure Diastolic blood pressure Provider Name and Address Organization Details Last Updated DateTime 5 167.64 cm 32.3 kg/m2 95 % 43167.4 7 g 100 mm[Hg] 69 mm[Hg] Ariana Davey [facility] 5 17:59:19 Social History Question Answer Notes LastModified by Organizat ion Details LastModified Time Tobacco Smoking Status Never [email or web address] 12/15/2019 10:08:23 What Is Your [...] COVID-19 While That Case Was Ill? No [email or web address] Information n ot available 06/12/2022 In The 14 Days Before Symptom Onset, Have You Had Close Contact With A Person Who Is Under Investigation For COVID-19 While That Person Was Ill? No [email or web address] Information not available 06/12/2022 Have You Been To An Area Known To Be High Risk For COVID-19? No [email or web address] Information not available 06/12/2022 Are You Currently Employed? No Information not available 10/10/2020 Are You Deaf Or Do You Have Serious Difficulty Hearing? No Information not available 10/09/2020 What Type Of Diet Are You Following? REGULAR Information n ot available 10/09/2020 What Is The Highest Grade Or Level Of School You Have Completed Or The Highest Degree You Have Received? [id number] Information not available 10/10/2020 Do You Use Your Seat Belt Or Car Seat Routinely? Yes Information not available 10/09/2020 Are You Sexually Active? No Information not available 10/10/2020 Do You Have Smoke And Carbon Monoxide Detectors In Your Home? Yes Information not available 10/09/2020 Do You Feel Stressed (tense, Restless, Nervous, Or Anxious, Or Unable To Sleep At Night)? [id number] Information not available 10/09/2020 Do You Use Any Illicit Or Recreational Drugs? No Information not available 10/09/2020 Do You Use Sunscreen Routinely? Yes Information not available 10/09/2020 Has Tobacco Cessation Counseling Been Provided? No [email or web address] Information not available 06/12/2022 Do You Or Have You Ever Used Any Other Forms Of Tobacco Or Nicotine? No [email or web address] Information not available 06/12/2022 Sex: Unknown Functional Status Question Answer Note LastModified by Organizat ion Details LastModified Time Do you have difficulty walking or climbing stairs? No [email or web address] Information not available 06/14/2022 Are you able [...] ) N Other N Drug/Latex Allergies/Reactions N Blood Transfusion N Breast Cancer N Dermatologic Disorders N Lung Disease N Defects or Inherited Disease N Breast Problem N Gestational Diabetes N Hematologic disorders N Anesthesia Complications N History of STI N Deep Vein Thrombosis N Polycystic ovary syndrome N Anxiety Disorder N Autoimmune disease N Arthritis N Polyps N Infertility N Acid Reflux (GERD) N History of abnormal pap N Cancer N Varicosities N Stroke N Neurologic/Epilepsy N Endometriosis N High Cholesterol N Fibromyalgia N Headaches N Kidney Disease N Heart Problems N [...] Immunizations Vaccine Type Date Status Note Provider Pito e and Address Organization Details Recorded Time COVID-19, mRNA, LNP-S, PF, 30 mcg/0.3 mL dose 12/09/2020 completed Dinora [facility] 01/11/2021 11:07:15 Past Encounters Encounter ID Performer Location Encounter Start Date Encounter Closed Date Diagnosis/Indication Diagnosis SNOMED-CT Code Diagnosis ICD10 Code Diagnosis Note [id number] JAZ Ojeda-[facility] [address] [address] 12/15/2019 10:02:27 12/15/2019 11:44:58 Contraception care management 522840191 N92.6 N94.5 Discussed all control options in [...] read and signed. Pt verbalized understand ing. [id number] Angelina Sifuentes , [facility] [address],[place] [address] 04/25/2020 11:53:47 04/25/2020 12:16:54 Contraception care management 620371156 N92.6 N94.5 Patient is here today for a medicaton check of control. She voices goals of therapy have been met with use of this therapy. She denies neg side effects. She is eating, drinking, sleeping well; moods are stable & periods are well regulated. Wishes to continue this method of BC. Appropriat e to continue this medication . sent [facility]. Time spent in visit is a total of 15 mins with at least 50% of visit consisting of counseling and review of plan of care. [id number] Angelina Sifuentes , [facility] [address],[place] [address] 10/10/2020 11:25:15 10/10/2020 12:19:55 Secondary dysmenorrhea 87756049 N94.5 Discussed all control options in great [...] this patient s visit, including available hand police crime scene technician upon arrive, temperatur e check and being asked a series of screening questions. All staff wore face coverings during this encounter, as well as provided additional cleaning and sanitizing of all surfaces, including countertop s, pens, chairs, door handles, light switches, etc, prior to and following the patient s visit. [id number] Angelina Sifuentes [facility] [address],[facility] [place] [address] 01/11/2021 10:29:04 01/11/2021 12:30:49 Contraception care management 556414273 N92.6 N94.5 Discussed all control options in [...] this patient s visit, including available hand police crime scene technician upon arrive, temperatur e check and being asked a series of screening questions. All staff wore face coverings during this encounter, as well as provided additional cleaning and sanitizing of all surfaces, including countertop s, pens, chairs, door handles, light switches, etc, prior to and following the patient s visit. [id number] Angelina Sifuentes [facility] [address],[facility] [place] [address] 03/22/2021 14:38:59 03/22/2021 15:26:35 Contraception care management 449998515 N92.6 N94.5 Discussed all control options and [...] this patient s visit, including available hand police crime scene technician upon arrive, temperatur e check and being asked a series of screening questions. All staff wore face coverings during this encounter, as well as provided additional cleaning and sanitizing of all surfaces, including counter-to ps, pens, chairs, door handles, light switches, etc, prior to and following the patient s visit. [id number] Angelina Sifuentes , JOSE ALBERTO-[facility] [address] [address] 04/12/2021 10:05:29 04/12/2021 11:37:06 Screening procedure 07830952 Z13.9 Insertion of intrauterine contraceptive device 38353643 Z30.430 She has been counseled on all [...] understand ing. RTO x 6wks IUD check [id number] Angelina Sifuentes [facility] [address],[place] [address] 05/28/2021 10:22:19 05/28/2021 10:48:40 IUD check 827136133 Z30.431 Patient is here for 4-6wk IUD [...] this patient s visit, including available hand police crime scene technician upon arrive, temperatur e check and being asked a series of screening questions. All staff wore face coverings during this encounter, as well as provided additional cleaning and sanitizing of all surfaces, including countertop s, pens, chairs, door handles, light switches, etc, prior to and following the patient s visit. [id number] Angelina Sifuentes [facility] [address],[place] [address] 10/11/2021 12:52:40 10/11/2021 13:37:36 Sexually transmitted infectious disease 2497636 A64 Will contact via portal with results if wnl.If any abn's will call her. Time spent in visit is a total of 15 mins with at least 50% of visit consisting of counseling and review of plan of care. [id number] Angelina Sifuentes [facility] [address] [address] 11/12/2021 12:17:53 11/12/2021 12:56:10 Venereal disease screening 722779253 Z11.3 Here today for HOLLIE Desaisonny sex education equal opportunity counselor providedAl l questions answered Time spent in visit is a total of 15 mins with at least 50% of visit consisting of counseling and review of plan of care. [id number] [facility] [address] [address] 02/06/2022 11:53:37 02/06/2022 12:43:30 Gynecologic examination 60558277 Z01.419 Take Calcium with Vitamin D 1200mg [...] Routine Labs na Contracept ion care management 677362269 N92.6 N94.5 Doing well on KyleenaChe cks stringsNo issues [id number] [facility] [address],[place] [address] 02/27/2022 14:49:47 02/27/2022 15:48:24 Urinary symptoms 897142379 R39.9 [id number] Angelina Sifuentes [facility] [address],[place] [address] 03/05/2022 09:55:09 03/05/2022 10:52:35 IUD check 975937530 Z30.431 Patient is here for IUD string check--was unable to feel her strings. She denies complicati ons, pain, or unpleasant side effects. Overall, Happy with this control method. Exam WNL--IUD strings detected on exam Time spent in visit is a total of 15 mins with at least 50% of visit consisting of counseling and review of plan of care. [id number] Angelina Sifuentes [facility] [address],[place] [address] 03/11/2022 09:31:51 03/11/2022 10:09:10 Removal of intrauterine device 53321427 Z30.432 It was explained that she may [...] d if trying to prevent / STD's. [id number] Sharron Parkhill [facility] [address],[place] [address] 06/12/2022 16:21:42 06/12/2022 18:21:31 screening 966754038 Z36.87 [id number] [facility] [address] [place] [address] 06/12/2022 16:22:04 06/13/2022 18:03:21 Amenorrhea 53275436 N91.2 [id number] [facility] [address] [place] [address] 06/14/2022 12:06:07 06/14/2022 13:39:52 Amenorrhea 35772353 N91.2 [facility] 380180397 R11.0 [id number] Sharron Fournier [facility] [address] [address] 07/04/2022 14:58:31 07/04/2022 15:49:56 screening 334584174 Z36.82 [id number] Hector Sullivan MD [facility] [address] [address] 07/04/2022 14:59:46 07/05/2022 14:25:28 Routine care 143854874 Z34.91 [id number] [facility] [address],[place] [address] 08/01/2022 14:52:46 08/01/2022 16:41:42 Routine care 735175314 Z34.92 [id number] Caty [facility] [address],[place] [address] 08/29/2022 14:49:22 08/29/2022 16:31:40 screening 365229217 Z36.3 [id number] [facility] [address],[place] [address] 08/29/2022 14:50:01 08/29/2022 16:29:53 Routine care 224206154 Z34.92 [id number] Roula Gilbert MD [facility] [address],[place] [address] 09/27/2022 14:47:06 09/30/2022 15:12:03 Routine care 429408623 Z34.92 [id number] Caty Sam [facility] [address],[place] [address] 09/27/2022 14:48:10 09/30/2022 15:12:32 screening 964369911 Z36.2 Z3A.24 [id number] Lesley Rodriguez [facility] [address] [address] 10/22/2022 11:11:41 10/22/2022 11:59:32 screening 432871297 Z36.2 [id number] Roula Gilbert MD [facility] [address],[place] [address] 10/22/2022 11:11:58 10/22/2022 13:54:34 Routine care 373090033 Z34.92 [id number] Roula Gilbert MD [facility] [address],[place] [address] 11/05/2022 14:36:43 11/06/2022 15:15:26 Routine care 763682007 Z34.92 [id number] Roula Gilbert MD [facility] [address],[place] [address] 11/19/2022 14:13:04 11/20/2022 16:23:39 Routine care 584496637 Z34.92 Uterine si ze for dates discrepancy 240931623 O26.849 [id number] Carrie Beatty [facility] [address],[place] [address] 12/04/2022 13:53:38 12/04/2022 14:14:45 Routine care 498793234 Z34.93 [id number] Sharron Parkhill [facility] [address],[place] [address] 12/17/2022 13:40:11 12/17/2022 14:11:31 Uterine size for dates discrepancy 223194763 O26.843 Z3A.35 [id number] Roula Gilbert MD [facility] [address],[place] [address] 12/17/2022 13:40:46 12/18/2022 10:45:49 Breech presentation 8249800 O32.1XX9 Routine an tenatal care 530373097 Z34.92 [id number] Roula Gilbert MD [facility] [address],[place] [address] 12/24/2022 14:05:39 12/25/2022 11:56:12 Routine care 226970319 Z34.92 - induced hypertension 24684937 O13.9 Breech presentation 6096 002 O32.1XX9 [id number] Roula Gilbert MD [facility] [address],[place] [address] 01/10/2023 12:03:34 01/10/2023 14:15:53 [id number] Roula Gilbert MD [facility] [address],[place] [address] 01/20/2023 12:15:55 01/20/2023 13:39:53 Past history of pre-eclampsia 6886938190 76807 Z87.59 Wound seroma 170983686 T 88.8XXD [id number] Roula Gilbert MD [facility] [address],[place] [address] 02/03/2023 14:40:58 02/06/2023 22:09:57 Postoperative visit 619355887 Z09 [id number] Roula Gilbert MD [facility] [address],[place] [address] 02/14/2023 11:20:54 02/14/2023 11:52:37 care 845519228 Z39.2 Contracept ion care management 297977236 Z30.9 [id number] Roula Gilbert MD [facility] [address],[place] [address] 02/20/2023 16:50:41 02/21/2023 15:47:07 Contraception care management 120481838 Z30.9 Contraception care 87519 5005 Z30.40 [id number] Angelina Sifuentes [facility] [address],[place] [address] 10/21/2023 10:29:34 10/21/2023 11:09:21 Abnormal uterine bleeding 8415315501 9100 N93.9 Today we discussed ways we [...] counseling and review of plan of care. [id number] [facility] [address],[place] [address] 03/04/2024 14:55:25 03/04/2024 15:30:06 Abnormal human chorionic gonadotropin 872034090 O02.81 Z3A.01 [id number] [facility] [address],[place] [address] 03/10/2024 11:04:17 03/10/2024 11:48:20 [id number] [facility] [address] [place] [address] 03/10/2024 11:04:47 03/10/2024 14:19:00 Amenorrhea 30940249 N91.2 Venereal d isease screening 979901162 Z11.3 Nausea and vomiting 1693 1999 R11.2 [id number] [facility] [address] [place] [address] 04/09/2024 11:31:47 04/09/2024 12:31:00 screening 991508258 Z36.82 Z3A.12 [id number] [facility] [address] [place] [address] 04/09/2024 11:32:10 04/09/2024 14:59:12 Gestation period, 12 weeks 50837859 Z3A.12 Routine an tenatal care 422544120 Z34.[id number] [facility] [address] [place] [address] 04/30/2024 14:29:41 04/30/2024 15:14:07 [id number] Z33.1 [id number] Carrie Beatty CNM [facility] [address],[place] [address] 05/14/2024 10:44:34 05/14/2024 13:24:24 Pruritic rash 93466561 L28.2 Gestation period, 17 weeks 14416865 Z3A.17 [id number] [facility] [address],[place] [address] 06/11/2024 11:35:56 06/11/2024 13:36:37 screening for malformation 347403490 Z36.3 Z3A.21 [id number] Carrie Beatty [facility] [address],[place] [address] 06/11/2024 11:36:13 06/11/2024 13:45:49 Gestation period, 21 weeks 09408510 Z3A.21 [id number] Carrie Beatty [facility] [address],[place] [address] 07/09/2024 11:14:31 07/09/2024 12:04:04 Gestation period, 25 weeks 01045060 Z3A.25 [id number] Carrie Beatty [facility] [address],[place] [address] 08/04/2024 13:32:49 08/04/2024 14:34:34 Gestation period, 29 weeks 28774822 Z3A.29 [id number] Carrie Beatty [facility] [address],[place] [address] 08/18/2024 14:24:48 08/18/2024 15:14:09 Routine care 118465459 Z34.93 [id number] [facility] [address] [place] [address] 09/01/2024 14:10:36 09/01/2024 15:14:22 Past history of pre-eclampsia 0266025588 20824 Z87.59 Z3A.33 [id number] Carrie Beatty [facility] [address] [place] [address] 09/01/2024 14:10:49 09/01/2024 15:57:34 Gestation period, 33 weeks 48211694 Z3A.33 [id number] Carrie Beatty CNM [facility] [address] [address] 09/15/2024 17:27:19 09/15/2024 20:06:47 screening 511538481 Z36.85 Gestation period, 35 weeks 16468474 Z3A.35 Health Concerns Section Related Observation LastModified by Organization Detai ls LastModified Time None Recorded Concern Status LastModified by Organization Details LastModified Time None Recorded Advance Directives Directive None Recorded Payers Encounter Date Sequence Insurance Name Policy Number Policy Ruvalcaba Covered Member ID Ruvalcaba Member ID Guarantor Name 08/04/2024 2 [place] [facility] [employer] Selina Jean Baptiste Hanks Selina Hanks 08/04/2024 1 [facility] [id number] Bk [place] [id number] Selina Hanks 08/18/2024 2 [place] [facility] [place] Selina J Hanks Selina Hanks 08/18/2024 1 [facility] [id number] Bk J Hanks [id number] Selina Hanks 09/01/2024 2 [place] [facility] [place] Selina J Hanks Selina Hanks 09/01/2024 1 [facility] [id number] Bk J Hanks [id number] Selina Hanks 09/01/2024 2 [place] [facility] [place] Selina J Hanks Selina Hanks 09/01/2024 1 [facility] [id number] Bk J Hanks [id number] Selina Hanks 09/15/2024 2 [place] [facility] [place] Selina J Hanks Selina Hanks 09/15/2024 1 [facility] [id number] Bk Markel Hanks [id number] Selina Lintons OBGyn Episode Ob Episode Information Episode Created Date Number of Fetuses Patient Bloodtype Patient rh Status Prepregnancy Weight lbs Domestic Partner Domestic Partner Phone Father Name Database Administration Associate Status 07/04/19 23 1 O Positive 157 CLOSED Fetus Data First Name Last Name Admitted to NICU Weight (g) Sex Living Outcome Pediatric Complications Fetus ID Race Codes Race Delivery Type 3146.79 45 M [id number] Primary Problems Problem Notes Problem Name Start Date End Date Resolution Snomed Code Not e Breech presentation 4447621 footling-CS 8/ Uterine size for dates discrepancy 11/20/2022 819560361 Anemia 822960469 slowfe 1ta b daily Enrrique Calculation Initial [...] Weight in lbs Pre/Post Dialysis Refused Weight 156.129278833010 BP Diastolic BP Location Tested BP Systolic [...] Weight in lbs Pre/Post Dialysis Refused Weight 158.326280684850 BP Diastolic BP Location Tested BP Systolic [...] Weight in lbs Pre/Post Dialysis Refused Weight 160.991287470935 BP Diastolic BP Location Tested BP Systolic [...] Weight in lbs Pre/Post Dialysis Refused Weight 160.978941293629 BP Diastolic BP Location Tested BP Systolic [...] Weight in lbs Pre/Post Dialysis Refused Weight 172.657179823447 BP Diastolic BP Location Tested BP Systolic [...] Weight in lbs Pre/Post Dialysis Refused Weight 172.629523728513 BP Diastolic BP Location Tested BP Systolic [...] Weight in lbs Pre/Post Dialysis Refused Weight 173.705298060427 BP Diastolic BP Location Tested BP Systolic BP Type 78 124 Fetus Heart Rate Present A 140 Fetus Movement A Yes Comments Dong ok. Will do Tdap, Will schedule preregistration and get fiber optics technician. US next couple visits for S<D. Precautions given. Flowsheet Date 12/04/2022 Wiley Score Blood Edema Fundus Height Fundus Units Glucose Ketones Leukocytes Nitrite Labor Signs Protein Cervic Dilation Cervic Effacement Cervic Station neg trace 34 none trace Type Weight in lbs Pre/Post Dialysis Refused Weight 180.181581981495 BP Diastolic BP Location Tested BP Systolic [...] Weight in lbs Pre/Post Dialysis Refused Weight 184.669579222976 BP Diastolic BP Location Tested BP Systolic BP Type 80 124 Fetus Heart Rate Present A 125 Fetus Movement A Yes Comments Doing well, no contractions. On US today 42% but footling breech. Discussed cannot attempt ECV if footling breech, discussed CS if remains breech. Will schedule for 8/2, will cancel if flips to vertex. Will discuss CS in depth next visit. GBS done and discussed today. Flowsheet Date 12/24/2022 Wiley Score Blood Edema Fundus Height Fundus Units Glucose Ketones Leukocytes Nitrite Labor Signs Protein Cervic Dilation Cervic Effacement Cervic Station neg trace 36 none trace Type Weight in lbs Pre/Post Dialysis Refused Weight 188.769525015991 BP Diastolic BP Location Tested BP Systolic [...] Weight in lbs Pre/Post Dialysis Refused Weight 168.023607087340 BP Diastolic BP Location Tested BP Systolic [...] Estim ated Date of Delivery false Thalassemia (Kazakh, Polish, Mediterranean, Or Background): MCV < 80 false Neural Tube Defect (Meningomyelocele, Spina Bifi da, Or Anencephaly) false Congenital Heart Defect false Down Syndrome false Balta-Sachs (eg, Protestant, Cajun, Albanian-Albanian) f alse Julia Disease false Sickle Cell Disease Or Trait () false Hemophilia Or Other Blood Disorders false Muscular Dystrophy false Cystic Fibrosis false [place]'s Chorea false Intellectual Disability/Autism false If Yes, [...] Domestic Partner Domestic Partner Phone Father Name Database Administration Associate Status 04/09/20 24 1 O Positive 179 Ju[place]o Francis OPEN Fetus Data First Name Last Name Admitted to NICU Weight (g) Sex Living Outcome Pediatric Complications Fetus ID Race Codes Race Delivery Type [id number] Problems Problem Notes Problem Name Start Date End Date Resolution Snomed Code Not e section [id number] amilcar ech/preeclampsia Past history of pre-eclampsia [id number] bASA daily Impaired glucose tolerance 6918235 3hr gtt schedul ed Enrrique Calculation Initial [...] Date Ultra Sound Latest Days Gestation 0 [email or web address] 09/16/2024 10/19/19 25 0 Pre- Flowsheet Flowsheet Date 04/09/2024 Wiley Score Blood Edema Fundus Height Fundus Units Glucose Ketones Leukocytes Nitrite Labor Signs Protein Cervic Dilation Cervic Effacement Cervic Station neg none none trace Type Weight in lbs Pre/Post Dialysis Refused Weight 185.050569824706 BP Diastolic BP Location Tested BP Systolic [...] Type Weight in lbs Pre/Post Dialysis Refused 184.228725648578 BP Diastolic BP Location Tested BP Systolic [...] Type Weight in lbs Pre/Post Dialysis Refused 187.992145896051 BP Diastolic BP Location Tested BP Systolic [...] Type Weight in lbs Pre/Post Dialysis Refused 193.31046283948 BP Diastolic BP Location Tested BP Systolic [...] Type Weight in lbs Pre/Post Dialysis Refused 187.659677609168 BP Diastolic BP Location Tested BP Systolic [...] Type Weight in lbs Pre/Post Dialysis Refused 195.241995699815 BP Diastolic BP Location Tested BP Systolic [...] Type Weight in lbs Pre/Post Dialysis Refused 199.850820299081 BP Diastolic BP Location Tested BP Systolic [...] Weight in lbs Pre/Post Dialysis Refused Weight 200.340752371009 BP Diastolic BP Location Tested BP Systolic [...]
--- OUTSIDE RECORDS SUMMARY | 2024-09-15 20:06 | XMS_ITS | Data Portability ---
[facility] [address] [place] [address] Care Team Providers Care Muck Miner Name Role Phone BOBBI CARCAMO Primary Care Provider Assessment No assessment recorded. Plan of Treatment Reminders Order Date Submit Date Provider Last Modified By Organization Details Last Modified Time Details Appointments None record ed. Lab None record ed. Referral None record ed. Procedures None record ed. Surgeries None record ed. Imaging None record ed. Medication Orders None record ed. Patient TargetsNo targets recorded. Patient Instructions Encounter Date Encounter Id Patient Instructions Last Modified By Organization Details Last Modified Time 08/06/2024 [id number] tinea versicolor : care instructions jnanney Not available 08/06/2024 14:27:06 Reason for Referral None Reported. Results Created Date Observation Date Name Description Value Unit Range Abnormal Flag Note LastModifiedBy Organization Detail LastModifiedTime Result Notes None recorded. Problems No Known Problems Procedures Surgical History Date Name Laterality Status Provider Name and Address Organization Details Recorded Time 3 section completed CRESENCIO Mcgovern [facility] 08/06/2024 14:04:24 Imaging Results None recorded. Procedure Notes None recorded. Medical Equipment None Reported. Allergies No known drug allergies Medications Name Sig Start Date Stop Date Status Note LastModified by Organization Details LastModified Time amoxicillin 500 mg capsule TAKE 1 CAPSULE BY MOUTH TWICE A DAY FOR 10 DAYS active pt is not taking 08/06/24 Not Available Not Available Not Available ondansetron HCl 4 mg tablet TAKE 1 TABLET BY MOUTH EVERY 6 HOURS. active pt is not taking 08/06/24 Not Available Not Available Not Available metronidazole 500 mg tablet TAKE 1 TABLET BY MOUTH THREE TIMES A DAY FOR 7 DAYS active pt is not taking 08/06/24 Not Available Not Available Not Available metoclopramid e 10 mg tablet TAKE 1 TABLET BY MOUTH FOUR TIMES A DAY active pt is not taking 08/06/24 Not Available Not Available Not Available Vitals Date Recorded Body height Body mass index (BMI) Body mass index (BMI) Percentile per age and sex Body weight Respiratory rate Oxygen saturation Oxygen saturation in Arterial blood by Pulse oximetry Heart rate Body temperature Systolic blood pressure Diastolic blood pressure Provider Name and Address Organization Details Last Updated DateTime 170.18 cm 29.9 kg/m2 93 % 23640.4 8 g 18 /min 97 % 97 % 114 /min 98.1 [degF] 122 mm[Hg] 78 mm[Hg] CRESENCIO Mcgovern [facility] 14:08:50 Social History Question Answer Notes LastModified by Organizat ion Details LastModified Time Tobacco Smoking Status Never Smoker CRESENCIO Mcgovern [facility] 08/06/2024 13:59:59 What Is Your Level Of Alcohol Consumption? None Information not available 08/06/2024 Are You Blind Or Do You Have Difficulty Seeing? No Information not available 08/06/2024 What Is Your Level Of Caffeine Consumption? Occasional Maybe A Cup Of Coffee 08/06/24 Information not available 08/06/2024 In The 14 Days Before Symptom Onset, Have You Had Close Contact With A Laboratory-confir med COVID-19 While That Case Was Ill? No Information not available 08/06/2024 In The 14 Days Before Symptom Onset, Have You Had Close Contact With A Person Who Is Under Investigation For COVID-19 While That Person Was Ill? No Information not available 08/06/2024 Have You Been To An Area Known To Be High Risk For COVID-19? No Information not available 08/06/2024 Are You Currently Employed? No Information not available 08/06/2024 Are You Deaf Or Do You Have Serious Difficulty Hearing? No Information not available 08/06/2024 What Type Of Diet Are You Following? REGULAR Information not available 08/06/2024 What Was The Date Of Your Most Recent Tobacco Screening? 08/06/2024 Information not available 08/06/2024 How Many Children Do You Have? 1 1 Boy And [address] 08/06/24 Information not available 08/06/2024 Do You Use Your Seat Belt Or Car Seat Routinely? Yes Information not available 08/06/2024 Are You Sexually Active? Yes Information not available 08/06/2024 Are You Passively Exposed To Smoke? No Information no t available 08/06/2024 Do You Feel Stressed (tense, Restless, Nervous, Or Anxious, Or Unable To Sleep At Night)? [id number] Information not available 08/06/2024 Do You Use Any Illicit Or Recreational Drugs? No Information not available 08/06/2024 Has Tobacco Cessation Counseling Been Provided? Yes Information not available 08/06/2024 On What Date Was Tobacco Cessation Counseling Provided? 08/06/2024 Information not available 08/06/2024 Do You Or Have You Ever Used Any Other Forms Of Tobacco Or Nicotine? No Information not available 08/06/2024 Sex: Female Functional Status Question Answer Note LastModified by Organizat ion Details LastModified Time Are you able to care for yourself? Yes Information not available 08/06/2024 What is your exercise level? Occasional Information not available 08/06/2024 Mental Status None recorded. Family History Nothing Reported Notes:08/06/24 Medical History No medical history recorded. Gynecological History Statement/Question Response Current Control Method Date of LMP 01/12/2024 LMP Definite Obstetrics History GPAL:G 1 P 0 0 0 1 Type Value Living 1 Total 1 Immunizations Vaccine Type Date Status Note Provider Nam e and Address Organization Details Recorded Time Influenza, split virus, quadrivalent, preservative 5 completed Melissa Mahoney R[place], [place] [facility] 08/06/2024 13:47:14 HPV9 5 completed Melissa Mah[place] [facility] 08/06/2024 13:47:14 HPV9 5 completed Melissa Stagner, [place] [facility] 08/06/2024 13:47:14 HPV9 6 completed Melissa Stagner, [place] [facility] 08/06/2024 13:47:14 IPV 5 completed Melissa Stagner, [place] [facility] 08/06/2024 13:47:14 IPV 9 completed Melissa Stagner, [place] [facility] 08/06/2024 13:47:14 IPV 4 completed Melissa Stagner, [place] [facility] 08/06/2024 13:47:14 IPV 5 completed Melissa Stagner, [place] [facility] 08/06/2024 13:47:14 MMRV 9 completed Melissa Stagner[place] [facility] 08/06/2024 13:47:14 MMRV 5 completed Melissa Stagner, [place] [facility] 08/06/2024 13:47:14 COVID-19, mRNA, LNP-S, PF, 30 mcg/0.3 mL dose 1 completed Melissa Stagner, [place] [facility] 08/06/2024 13:47:14 COVID-19, mRNA, LNP-S, PF, 30 mcg/0.3 mL dose 1 completed Melissa Stagner, [place] [facility] 08/06/2024 13:47:14 pneumococcal conjugate PCV 7 6 completed Melissa Stagner, [place] [facility] 08/06/2024 13:47:14 Tdap 3 completed Melissa Stagner[place] [facility] 08/06/2024 13:47:14 Tdap 5 completed Melissa Stagner, [place] [facility] 08/06/2024 13:47:14 Pneumococcal conjugate PCV 13 5 completed Melissa Stagner, [place] [facility] 08/06/2024 13:47:14 Pneumococcal conjugate PCV 13 4 completed Melissa Stagner, [place] [facility] 08/06/2024 13:47:14 Pneumococcal conjugate PCV 13 5 completed Melissa Stagner, [place] [facility] 08/06/2024 13:47:14 Hep B, adolescent or pediatric 5 completed Melissa Stagner, [place] [facility] 08/06/2024 13:47:14 Hep B, adolescent or pediatric 6 completed Melissa Stagner, [place] [facility] 08/06/2024 13:47:14 Hep B, adolescent or pediatric 4 completed Melissa Stagner, [place] [facility] 08/06/2024 13:47:14 Hep B, adolescent or pediatric 5 completed Melissa Stagner, [place] [facility] 08/06/2024 13:47:14 Hep A, ped/adol, 2 dose 7 completed Melissa Stagner, [place] [facility] 08/06/2024 13:47:14 Hep A, ped/adol, 2 dose 9 completed Melissa Stagner, [place] [facility] 08/06/2024 13:47:14 Hib (PRP-T) 5 completed Melissa Stagner, [place] [facility] 08/06/2024 13:47:14 Hib (PRP-T) 6 completed Melissa Stagner, [place] [facility] 08/06/2024 13:47:14 Hib (PRP-T) 4 completed Melissa Stagner, [place] [facility] 08/06/2024 13:47:14 Hib (PRP-T) 5 completed Melissa Stagner, [place] [facility] 08/06/2024 13:47:14 meningococcal MCV4P 5 completed Melissa Stagner, [place] [facility] 08/06/2024 13:47:14 meningococcal MCV4P 1 completed Melissa Stagner, [place] [facility] 08/06/2024 13:47:14 DTaP, 5 pertussis antigens 5 completed Melissa Stagner, [place] [facility] 08/06/2024 13:47:14 DTaP, 5 pertussis antigens 6 completed Melissa Stagner, [place] [facility] 08/06/2024 13:47:14 DTaP, 5 pertussis antigens 9 completed Melissa Stagner, [place] [facility] 08/06/2024 13:47:14 DTaP, 5 pertussis antigens 4 completed Melissa Stagner, [place] [facility] 08/06/2024 13:47:14 DTaP, 5 pertussis antigens 5 completed Melissa Stagner, [place] [facility] 08/06/2024 13:47:14 Influenza, split virus, quadrivalent, PF 1 completed Melissa Stagner, [place] [facility] 08/06/2024 13:47:14 Influenza, split virus, quadrivalent, PF 8 completed Melissa Stagner, [place] [facility] 08/06/2024 13:47:14 Influenza, split virus, quadrivalent, PF 6 completed Melissa Stagner[place] [facility] 08/06/2024 13:47:14 Past Encounters Encounter ID Performer Location Encounter Start Date Encounter Closed Date Diagnosis/Indication Diagnosis SNOMED-CT Code Diagnosis ICD10 Code Diagnosis Note [id number] Bobbi Carcamo PA-C [facility] [address] [facility] [place] [address] 08/06/2024 13:42:29 08/06/2024 15:16:17 28038550 Z33.1 Hemangioma of skin 88887 006 D18.01 Pityriasis versicolor 56 417225 B36.0 Body mass index 20-24 - normal 322334104 Z68.24 Health Concerns Section Related Observation LastModified by Organization Detai ls LastModified Time None Recorded Concern Status LastModified by Organization Details LastModified Time None Recorded Advance Directives Directive None Recorded Payers Encounter Date Sequence Insurance Name Policy Number Policy Ruvalcaba Covered Member ID Ruvalcaba Member ID Guarantor Name 08/06/2024 2 [place] [facility] PUBLIC AID Selina Lion [id number] Selina Lion 08/06/2024 1 [facility] [id number] Bk Lion [id number] Selina Lion Notes Date Note Type Note Provider Name and Address Organization Details Recorded Time 08/06/2024 text/html here to establish...29 weeks ...has an ob at [facility]...was with peds before...has a thing on dorsum of left foot Bobbi Carcamo PA-C Attn: Accounting,[address] [place], [address], [facility] 08/06/2024 14:28:00 OBGyn Episode Ob Episode Information Episode Created Date Number of Fetuses Patient Bloodtype Patient rh Status Prepregnancy Weight lbs Domestic Partner Domestic Partner Phone Father Name Cash Grain Grower Status 08/06/19 25 1 CLOSED Fetus Data First Name Last Name Admitted to NICU Weight (g) Sex Living Outcome Pediatric Complications Fetus ID Race Codes Race Delivery Type 6973.97 7 M Full Term 11357 Enrrique Calculation Initial Enrrique Date Initial Exam Date Initial Exam Provider Initial Ultrasound Date Last Menstrual Period Date Ultra Sound Weeks Gestation 0 Eighteen To Twenty Week Enrrique Update Ultra Sound Date Fundal Height At Umbil Quickening Date Ultra Sound Latest Weeks Gestation Final Enrrique Confirmed By Final Enrrique Confirmed Date Final Enrrique Date Ultra Sound Latest Days Gestation 0 0 Menstrual History Last Menstrual Date Menses Monthly On Bcp Conception Prior Menses Frequency Hcg Plus Date Menarche Onset Age Delivery Information Delivery Date Delivery Type Labor Anesthesia Weeks Gestation Incision Type Labor Labor Length Hrs Delivered By Post Complications Tubal Sterilization Discharge Date Comments 3 38 Delivery Site: [facility] Discharge Information Feeding Method Contraceptive Method Maternal HG B and HCT Levels
[2024-09-15 20:12] VITALS: TEMP 36.4
--- NOTE | 2024-09-15 20:15 | PC.NURSE ---
Pt discharged with instructions to keep next scheduled appointment and when to return to the unit, pt verbalizes understanding.
[2024-09-15 20:52] LABS: OBXCEM ROM Plus Negative (Negative)
== END 2024-09-15 20:15 | disposition home or self-care (01) ==
LOC: ANHOBOP 20:05 → ANHLDR 20:09
PROVIDERS: PCP Physician Assistant; Visit Provider Advanced Practice Midwife
DX: O42.90 Premature rupture of membranes, unspecified as to length of time between rupture and onset of labor, unspecified weeks of gestation (principal)
CPT/HCPCS: 59025; 84112; 99199

== ENCOUNTER 2024-09-20 13:28 | Observation (INO) | payer OTHER, MEDICAID, SELFPAY ==
[2024-09-20 13:54] VITALS: BP 123/69; PULSE 93; RESP 16; TEMP 36.8
[2024-09-20 14:00] VITALS: BP 116/67; PULSE 98
[2024-09-20 14:27] VITALS: BMI 30.4
--- NOTE | 2024-09-20 14:29 | OBADM ---
This patient, Selina Lion, admitted to the OB room 113 for observation. Patient/family oriented to hospital policies and general routines including ID bracelet, bed and alarms, visiting hours, pain management, procedures, bathroom and other care routines, personal items, smoking policy, room service/diet, and visiting hours. Patient/Family are encouraged to report perceived risks to care and to ask questions if they do not understand what they are told or what they should do.
[2024-09-20 14:30] VITALS: BP 115/69; PULSE 93
[2024-09-20 14:33] LABS: Add Urine Microscopic? YES; Appearance Urine Cloudy (Clear); Bacteria Urine 2+ /hpf; Bilirubin Urine Negative (Negative); Blood Urine Negative (Negative); Color Urine Yellow (Yellow); Glucose Urine UA Negative (Negative); Ketones Urine Negative (Negative); Leukocyte Esterase Ur 1+ LEU/UL (Negative); Nitrate Urine Negative (Negative); Non Pathogenic Casts 0-2; Protein Urine Negative (Negative); RBC Urine 0-2 /hpf (0-2); Specific Grav Ur 1.021 (1.001-1.035); Squamous Epithelial Cell Urine Occasional /hpf (Few); Urobilinogen Urine 0.2 mg/dL (<2.0); pH Urine 7.5 (5.0-9.0)
[2024-09-20 15:00] VITALS: BP 113/72; PULSE 93
--- OUTSIDE RECORDS SUMMARY | 2024-09-20 15:03 | XMS_ITS | Data Portability ---
[facility] Address [address] [address] Care Team Providers Care Fingerprint Classifier Name Role Phone BOBBI CARCAMO Primary Care Provider [phone] Assessment No assessment recorded. Plan of Treatment [...] By Organization Details Last Modified Time 08/06/2024 [id number] tinea versicolor : care instructions jnanney Not available 08/06/2024 14:27:06 Reason for Referral None Reported. Results Created Date Observation Date Name Description Value Unit Range Abnormal Flag Note LastModifiedBy Organization Detail LastModifiedTime Result Notes None recorded. Problems No Known Problems Procedures Surgical History Date Name Laterality Status Provider Name and Address Organization Details Recorded Time 3 section completed CRESENCIO Mcgovern [facility] 08/06/2024 14:04:24 Imaging Results None recorded. [...] DateTime 170.18 cm 29.9 kg/m2 93 % 13241.4 8 g 18 /min 97 % 97 % 114 /min 98.1 [degF] 122 mm[Hg] 78 mm[Hg] CRESENCIO Mcgovern [facility] 14:08:50 Social History Question Answer Notes LastModified by Organizat ion Details LastModified Time Tobacco Smoking Status Never Smoker CRESENCIO Mcgovern [facility] 08/06/2024 13:59:59 What Is Your Level [...] Anxious, Or Unable To Sleep At Night)? [id number] Information not available 08/06/2024 Do You Use [...] SNOMED-CT Code Diagnosis ICD10 Code Diagnosis Note [id number] Bobbi Carcamo PA-C [facility] [address] [place] [address] 08/06/2024 13:42:29 08/06/2024 15:16:17 81420465 Z33.1 Hemangioma of skin 75477 006 D18.01 Pityriasis versicolor 56 971824 B36.0 Body mass index 20-24 - normal 022273833 Z68.24 Health Concerns Section Related Observation LastModified by Organization Detai ls LastModified Time None Recorded Concern Status LastModified by Organization Details LastModified Time None Recorded Advance Directives Directive None Recorded Payers Encounter Date Sequence Insurance Name Policy Number Policy Ruvalcaba Covered Member ID Ruvalcaba Member ID Guarantor Name 08/06/2024 2 [place] [facility] OF PUBLIC AID Selina Lion [id number] Selina Lion 08/06/2024 1 [facility] [id number] Bk Lion [id number] Selina Lion Notes Date Note Type Note Provider Name and Address Organization Details Recorded Time 08/06/2024 text/html here to establish...29 weeks ...has an ob at [facility]...was with peds before...has a thing on dorsum of left foot Bobbi Carcamo PA-C Attn: Accounting,[address] [place], [address], [facility] 08/06/2024 14:28:00 OBGyn Episode Ob Episode Information Episode Created Date Number of Fetuses Patient Bloodtype Patient rh Status Prepregnancy Weight lbs Domestic Partner Domestic Partner Phone Father Name Tax Compliance Agent Status 08/06/19 25 1 CLOSED Fetus Data First Name Last Name Admitted to NICU Weight (g) Sex Living Outcome Pediatric Complications Fetus ID Race Codes Race Delivery Type 6973.97 7 M Full Term 02123 Enrrique Calculation Initial Enrrique Date Initial Exam [...] Discharge Date Comments 3 38 Delivery Site: [facility] Discharge Information Feeding Method Contraceptive Method Maternal HG B and HCT Levels
--- OUTSIDE RECORDS SUMMARY | 2024-09-20 15:03 | XMS_ITS | Data Portability ---
Author Organization [facility] Mobile Address [address] [place] [address] Assessment Encounter Date Assessment Date Assessment LastModified by Organization Details LastModified Time 08/04/2024 08/04/2024 Patient is _29__weeks . Discussed plan. Not available 08/04/2024 14:26:30 08/18/2024 08/18/2024 Patient is __31_weeks . Discussed plan. Not available 08/18/2024 15:11:34 09/01/2024 09/01/2024 Patient is _33__weeks . Discussed plan. [email or web address] Not available 09/01/2024 15:35:50 09/15/2024 09/15/2024 Patient is _35__weeks . Discussed plan. [email or web address] Not available 09/15/2024 18:03:40 Plan of Treatment Reminders Order Date Submit Date Provider Last Modified By Organization Details Last Modified Time Details Appointments OB ROUTINE 2024 09:30A Christiana SULLIVAN MD Not available Not available Not available U/S OB GROWTH 2024 11:00A M ULTRASOUND Not available Not available Not available OB ROUTINE 2024 11:45A M Carrie Beatty CNM Not available Not available Not available Lab strepto coccus group B, culture , unspeci fied specime n 2024 025 [facility] (Lab), [address], [place], [address], 09/18/2024 15:04:56 Referral None recorde d. Procedures None recorde d. Surgeries None recorde d. Imaging US, obstetr ic, follow- up 2024 025 [email or web address] Mobile, [address], [address], [place], [address], 09/01/2024 19:02:19 Medication Orders None recorde d. Patient TargetsNo targets recorded. Patient InstructionsNo instructions recorded. Reason for Referral None Reported. Results Created Date Observation Date Name Description Value Unit Range Abnormal Flag Note LastModifiedBy Organization Detail LastModifiedTime 08/04/1908/04/2024 HEMAT OCRIT (HCT) HCT 37.3 % (based on docume nted legal sex) 34.0-4 5.0 Not Available [facility] (Lab) [address] , [place], [address], 08/05/2024 15:44:40 08/04/19 25 08/04/2024 HEMOG LOBIN (HGB) HGB 12.3 g/dL (based on docume nted legal sex) 11.6-1 5.4 Not Available [facility] (Lab) [address], [place], [address], 08/05/2024 15:44:40 08/04/19 25 08/04/2024 GTT - GESTA RICHARD L MELONIE N, ACOG OB glucose, 1 hour screen 164 mg/dL 70-135 high Not Available [facility] (Lab) [address], [place], [address], 08/05/2024 15:44:41 08/04/19 25 08/04/2024 HIV 1/2 ANTIG EN/AN TIBOD Y, REFLE X CONFI RMATI ON HIV antigen/anti body Nonrea ctive nonrea ctive HIV-1 antig en and HIV-1 /HIV- 2 antib odies were not detec wilfredo. No labor atory evide nce of HIV infec tion. Not Available [facility] (Lab) [address], [place], [address], 08/05/2024 15:44:41 08/04/19 25 08/04/2024 RPR SCREE N, REFLE X TITER /CONF IRMAT ION RPR qualitative Nonrea ctive nonrea ctive Not Available [facility] (Lab) [address], [place], [address], 08/05/2024 15:44:41 08/10/19 25 08/09/2024 GTT - GESTA RICHARD L, 3 HOUR, ACOG glucose, fasting acog 79 mg/dL 70-94 Not Available [facility] (Lab) [address], [place], [address], 08/10/2024 04:59:42 08/10/19 25 08/09/2024 GTT - GESTA RICHARD L, 3 HOUR, ACOG glucose, 1 hour acog 175 mg/dL 70-179 Not Available [facility] (Lab) [address], [place], [address], 08/10/2024 04:59:42 08/10/19 25 08/09/2024 GTT - GESTA RICHARD L, 3 HOUR, ACOG glucose, 2 hour acog 140 mg/dL 70-154 Not Available [facility] (Lab) [address], [place], [address], 08/10/2024 04:59:42 08/10/19 25 08/09/2024 GTT - GESTA RICHARD L, 3 HOUR, ACOG glucose, 3 hour acog 100 mg/dL 70-139 Not Available [facility] (Lab) [address], [place], [address], 08/10/2024 04:59:42 07/24/19 25 07/24/2024 imagi ng/di agnos tic resul t No observ ation record ed. [facility] [address], [place], [address], 07/25/2024 07:21:51 09/02/19 25 09/01/2024 US, obste tric, follo w-up No observ ation record ed. [email or web address] [facility] [address], [place], [address], 09/01/2024 18:21:06 09/02/19 25 09/01/2024 US, obste tric, follo w-up No observ ation record ed. [email or web address] Arianna [address], [place], [address], 09/02/2024 16:55:38 09/03/19 25 09/02/2024 imagi ng/di agnos tic resul t No observ ation record ed. [facility] [address] [facility] [address] [facility], [place], [address], 09/02/2024 15:41:00 09/17/19 25 09/16/2024 imagi ng/di agnos tic resul t No observ ation record ed. [facility] [address], [place], [address], 09/16/2024 14:05:08 Result Notes None recorded. Problems Name Problem SNOMED Code Status Onset Date Resolution Date Notes Provider Name and Address Organization Details Recorded Time Pregnanc y 59038227 Completed 202201/10/[address] [facility] 4 13:17:11 Uterine size for dates discrepa ncy 801979702 Completed [address] [facility] 3 12:30:20 Anemia 236994192 Completed slowfe 1tab daily Cat nelson [facility] 3 12:30:20 Breech presenta tion 6467263 Completed footling -CS 01/[address] [facility] 3 12:30:20 Pregnanc y 77947493 Active 2023 Ariana Davey null, [facility] 4 13:17:11 Past pregnanc y history of pre-ecla mpsia 1558969450 81773 Active bASA daily Carrie Beatty CNM [address], [place], [address], [facility] 4 13:56:45 section Active breech/p reeclamp marissa Carrie Beatty CNM [address], [place], [address], [facility] 4 13:55:06 Impaired glucose toleranc e 2242643 Active 3hr gtt schedule d Alisia Arrington [facility], [facility] 5 12:02:42 Impaired glucose toleranc e 3730897 Active 3hr gtt schedule d Alisia Arrington [facility], [facility] 5 12:02:41 Problem Notes None recorded. Procedures Surgical History Date Name Laterality Status Provider Name and Address Organization Details Recorded Time 3 SECTION (SURG) completed Anna Chow [facility] 01/02/2023 10:39:04 2 IUD Removal completed JAZ Ojeda-CARLEY [address], [place], [address], [facility] 03/11/2022 09:51:40 1 IUD Insertion completed BETTIE Ojeda [address], [place], [address], [facility] 04/12/2021 10:59:44 Imaging Results Imaging Date Name Status LastModified by [facility] Details LastModified Time 07/24/2024 imaging/diag nostic result active [facility] [address], [place], [address], 07/25/2024 07:21:51 09/01/2024 US, obstetric, follow-up completed [email or web address] [facility] [address], [place], [address], 09/01/2024 18:21:06 09/01/2024 US, obstetric, follow-up completed [email or web address] Arianna [address], [place], [address], 09/02/2024 16:55:38 09/02/2024 imaging/diag nostic result active [facility] [address], [place], [address], 09/02/2024 15:41:00 09/16/2024 imaging/diag nostic result active [facility] [address], [place], [address], 09/16/2024 14:05:08 Procedure Notes None recorded. Medical Equipment None [...] 5 167.64 cm 30.2 kg/m2 93 % 23407.7 7319 g 108 mm[Hg] 71 mm[Hg] Ariana Davey [facility] 5 14:06:36 Date Recorded Body weight Body mass index (BMI) Body mass index (BMI) Percentile per age and sex Body height Systolic blood pressure Diastolic blood pressure Provider Name and Address Organization Details Last Updated DateTime 5 16424.5 1215 g 31.5 kg/m2 94 % 167.64 cm 114 mm[Hg] 65 mm[Hg] Ariana Davey [facility] 5 15:01:28 Date Recorded Body weight Body mass index (BMI) Percentile per age and sex Body mass index (BMI) Body height Systolic blood pressure Diastolic blood pressure Provider Name and Address Organization Details Last Updated DateTime 5 71643.8 8163 g 95 % 32.1 kg/m2 167.64 cm 114 mm[Hg] 68 mm[Hg] Ariana Davey [facility] 5 15:28:28 Date Recorded Body height Body mass index (BMI) Body mass index (BMI) Percentile per age and sex Body weight Systolic blood pressure Diastolic blood pressure Provider Name and Address Organization Details Last Updated DateTime 5 167.64 cm 32.3 kg/m2 95 % 53671.4 7 g 100 mm[Hg] 69 mm[Hg] Ariana Davey [facility] 5 17:59:19 Social History Question Answer Notes LastModified by Organizat ion Details LastModified Time Tobacco Smoking Status Never [facility] 12/15/2019 10:08:23 What Is Your Level [...] While That Case Was Ill? No Information n ot available 06/12/2022 In The 14 Days Before Symptom Onset, Have You Had Close Contact With A Person Who Is Under Investigation For COVID-19 While That Person Was Ill? No [email or web address] Information not available 06/12/2022 Have You Been To An Area Known To Be High Risk For COVID-19? No [email or web address] Information not available 06/12/2022 Are You Currently Employed? No Information not available 10/10/2020 Are You Deaf Or Do You Have Serious Difficulty Hearing? No Information not available 10/09/2020 What Type Of Diet Are You Following? REGULAR Information n ot available 10/09/2020 What Is The Highest Grade Or Level Of School You Have Completed Or The Highest Degree You Have Received? [id number] Information not available 10/10/2020 Do You Use Your Seat Belt Or Car Seat Routinely? Yes Information not available 10/09/2020 Are You Sexually Active? No Information not available 10/10/2020 Do You Have Smoke And Carbon Monoxide Detectors In Your Home? Yes Information not available 10/09/2020 Do You Feel Stressed (tense, Restless, Nervous, Or Anxious, Or Unable To Sleep At Night)? [id number] Information not available 10/09/2020 Do You Use Any Illicit Or Recreational Drugs? No Information not available 10/09/2020 Do You Use Sunscreen Routinely? Yes Information not available 10/09/2020 Has Tobacco Cessation Counseling Been Provided? No [email or web address] Information not available 06/12/2022 Do You Or Have You Ever Used Any Other Forms Of Tobacco Or Nicotine? No Information not available 06/12/2022 Sex: Unknown Functional [...] N Drug/Latex Allergies/Reactions N Blood Transfusion N Lung Disease N Dermatologic Disorders N Defects or Inherited Disease N Breast [...] mcg/0.3 mL dose 12/09/2020 completed Dinora Fournier [facility] 01/11/2021 11:07:15 Past Encounters Encounter ID Performer Location Encounter Start Date Encounter Closed Date Diagnosis/Indication Diagnosis SNOMED-CT Code Diagnosis ICD10 Code Diagnosis Note [id number] Angelina Sifuentes [facility] [address],[place] [address] 12/15/2019 10:02:27 12/15/2019 11:44:58 Contraception care management 983533296 N92.6 N94.5 Discussed all control options in [...] read and signed. Pt verbalized understand ing. [id number] Angelina Sifuentes [facility] [address],[place] [address] 04/25/2020 11:53:47 04/25/2020 12:16:54 Contraception care management 772702076 N92.6 N94.5 Patient is here today for a medicaton check of control. She voices goals of therapy have been met with use of this therapy. She denies neg side effects. She is eating, drinking, sleeping well; moods are stable & periods are well regulated. Wishes to continue this method of BC. Appropriat e to continue this medication . RF [facility]. Time spent in visit is a total of 15 mins with at least 50% of visit consisting of counseling and review of plan of care. [id number] Angelina Sifuentes [facility] [address],[place] [address] 10/10/2020 11:25:15 10/10/2020 12:19:55 Secondary dysmenorrhea 55703581 N94.5 Discussed all control options in great [...] signed. Pt verbalized understand ing. Switch to 06/28. RTO 3mos med check Time spent in visit is a total of 15 mins with at least 50% of visit consisting of counseling and review of plan of care. Additional precaution kiya measures were taken to minimize potential exposure to the Covid-19 virus during this patient s visit, including available hand academic services coordinator upon arrive, temperatur e check and being asked a series of screening questions. All staff wore face coverings during this encounter, as well as provided additional cleaning and sanitizing of all surfaces, including countertop s, pens, chairs, door handles, light switches, etc, prior to and following the patient s visit. [id number] [facility]es [facility] [address] [address] 01/11/2021 10:29:04 01/11/2021 12:30:49 Contraception care management 683978210 N92.6 N94.5 Discussed all control options in [...] this patient s visit, including available hand academic services coordinator upon arrive, temperatur e check and being asked a series of screening questions. All staff wore face coverings during this encounter, as well as provided additional cleaning and sanitizing of all surfaces, including countertop s, pens, chairs, door handles, light switches, etc, prior to and following the patient s visit. [id number] Angelina Sifuentes [facility] [address] [address] 03/22/2021 14:38:59 03/22/2021 15:26:35 Contraception care management 717543902 N92.6 N94.5 Discussed all control options and [...] this patient s visit, including available hand academic services coordinator upon arrive, temperatur e check and being asked a series of screening questions. All staff wore face coverings during this encounter, as well as provided additional cleaning and sanitizing of all surfaces, including counter-to ps, pens, chairs, door handles, light switches, etc, prior to and following the patient s visit. [id number] Angelina Sifuentes [facility] [address] [address] 04/12/2021 10:05:29 04/12/2021 11:37:06 Screening procedure 29230053 Z13.9 Insertion of intrauterine contraceptive device 55055466 Z30.430 She has been counseled on all [...] understand ing. RTO x 6wks IUD check [id number] BETTIE Ojeda [facility] [address] [address] 05/28/2021 10:22:19 05/28/2021 10:48:40 IUD check 613756715 Z30.431 Patient is here for 4-6wk IUD [...] this patient s visit, including available hand academic services coordinator upon arrive, temperatur e check and being asked a series of screening questions. All staff wore face coverings during this encounter, as well as provided additional cleaning and sanitizing of all surfaces, including countertop s, pens, chairs, door handles, light switches, etc, prior to and following the patient s visit. [id number] BETTIE Ojeda [facility] [address],[place] [address] 10/11/2021 12:52:40 10/11/2021 13:37:36 Sexually transmitted infectious disease 0191978 A64 Will contact via portal with results if wnl.If any abn's will call her. Time spent in visit is a total of 15 mins with at least 50% of visit consisting of counseling and review of plan of care. [id number] Angelina Sifuenets [facility] [address],[place] [address] 11/12/2021 12:17:53 11/12/2021 12:56:10 Venereal disease screening 386294439 Z11.3 Here today for HOLLIE Bullock sex education financial health counselor providedAl l questions answered Time spent in visit is a total of 15 mins with at least 50% of visit consisting of counseling and review of plan of care. [id number] Angelina Sifuentes [place] [address],[place] [address] 02/06/2022 11:53:37 02/06/2022 12:43:30 Gynecologic examination 01651115 Z01.419 Take Calcium with Vitamin D 1200mg [...] paper copy of today's plan if desired.Juan wandy due age 20yo unless otherwise indicated per asccp STD Screen sent urine Genetic Screen discussed Colon Screen na Dexa Screen na Routine Labs na Contracept ion care management 903533136 N92.6 N94.5 Doing well on KyleenaChe cks stringsNo issues [id number] [facility] [address],[place] [address] 02/27/2022 14:49:47 02/27/2022 15:48:24 Urinary symptoms 923292369 R39.9 [id number] Angelina Sifuentes [facility] [address],[place] [address] 03/05/2022 09:55:09 03/05/2022 10:52:35 IUD check 577414800 Z30.431 Patient is here for IUD string check--was unable to feel her strings. She denies complicati ons, pain, or unpleasant side effects. Overall, Happy with this control method. Exam WNL--IUD strings detected on exam Time spent in visit is a total of 15 mins with at least 50% of visit consisting of counseling and review of plan of care. [id number] Angelina Sifuentes [facility] [address],[place] [address] 03/11/2022 09:31:51 03/11/2022 10:09:10 Removal of intrauterine device 41837510 Z30.432 It was explained that she may [...] d if trying to prevent / STD's. [id number] Sharron [facility] [address],[place] [address] 06/12/2022 16:21:42 06/12/2022 18:21:31 screening 766888143 Z36.87 [id number] Carrie Beatty [facility] [address],[place] [address] 06/12/2022 16:22:04 06/13/2022 18:03:21 Amenorrhea 72197653 N91.2 [id number] Carrie Beatty [facility] [address],[place] [address] 06/14/2022 12:06:07 06/14/2022 13:39:52 Amenorrhea 61119735 N91.2 [facility] 346434321 R11.0 [id number] Sharron Fournier [facility] [address],[place] [address] 07/04/2022 14:58:31 07/04/2022 15:49:56 screening 103757143 Z36.82 [id number] Hector Sullivan MD [facility] [address],[place] [address] 07/04/2022 14:59:46 07/05/2022 14:25:28 Routine care 055223230 Z34.91 [id number] [facility] [address],[place] [address] 08/01/2022 14:52:46 08/01/2022 16:41:42 Routine care 551425157 Z34.92 [id number] Caty Sam [facility] [address],[place] [address] 08/29/2022 14:49:22 08/29/2022 16:31:40 screening 698807172 Z36.3 [id number] Sneha [facility] [address],[place] [address] 08/29/2022 14:50:01 08/29/2022 16:29:53 Routine care 065640404 Z34.92 [id number] Roula Gilbert MD [facility] [address],[place] [address] 09/27/2022 14:47:06 09/30/2022 15:12:03 Routine care 166644032 Z34.92 [id number] Caty [place] [facility] [address],[place] [address] 09/27/2022 14:48:10 09/30/2022 15:12:32 screening 184648912 Z36.2 Z3A.24 [id number] Lesley Rodriguez [facility] [address],[place] [address] 10/22/2022 11:11:41 10/22/2022 11:59:32 screening 541328641 Z36.2 [id number] Roula Gilbert MD [facility] [address],[place] [address] 10/22/2022 11:11:58 10/22/2022 13:54:34 Routine care 288887500 Z34.92 [id number] Roula Gilbert MD [facility] [address],[place] [address] 11/05/2022 14:36:43 11/06/2022 15:15:26 Routine care 505875636 Z34.92 [id number] Roula Gilbert MD [facility] [address],[place] [address] 11/19/2022 14:13:04 11/20/2022 16:23:39 Routine care 580886409 Z34.92 Uterine si ze for dates discrepancy 021603157 O26.849 [id number] Carrie Beatty [facility] [address],[place] [address] 12/04/2022 13:53:38 12/04/2022 14:14:45 Routine care 446000328 Z34.93 [id number] Sharron Fournier [facility] [address],[place] [address] 12/17/2022 13:40:11 12/17/2022 14:11:31 Uterine size for dates discrepancy 454864534 O26.843 Z3A.35 [id number] Roula Gilbert MD [facility] [address],[place] [address] 12/17/2022 13:40:46 12/18/2022 10:45:49 Breech presentation 6869101 O32.1XX9 Routine an tenatal care 159998423 Z34.92 [id number] Roula Gilbert MD [facility] [address],[place] [address] 12/24/2022 14:05:39 12/25/2022 11:56:12 Routine care 343741777 Z34.92 - induced hypertension 74180176 O13.9 Breech presentation 6096 002 O32.1XX9 [id number] Roula Gilbert MD [facility] [address],[place] [address] 01/10/2023 12:03:34 01/10/2023 14:15:53 [id number] Roula Gilbert MD [facility] [address] [address] 01/20/2023 12:15:55 01/20/2023 13:39:53 Past history of pre-eclampsia 9051571009 19248 Z87.59 Wound seroma 278032285 T 88.8XXD [id number] Roula Gilbert MD [facility] [address],[place] [address] 02/03/2023 14:40:58 02/06/2023 22:09:57 Postoperative visit 759598448 Z09 [id number] Roula Gilbert MD [facility] [address],[place] [address] 02/14/2023 11:20:54 02/14/2023 11:52:37 care 630038699 Z39.2 Contracept ion care management 436514064 Z30.9 [id number] MD [place] [address],[place] [address] 02/20/2023 16:50:41 02/21/2023 15:47:07 Contraception care management 047148085 Z30.9 Contraception care 79744 5005 Z30.40 [id number] Angelina Sifuentes [facility] [address],[place] [address] 10/21/2023 10:29:34 10/21/2023 11:09:21 Abnormal uterine bleeding 1274914560 9100 N93.9 Today we discussed ways we [...] counseling and review of plan of care. [id number] [facility] [address],[place] [address] 03/04/2024 14:55:25 03/04/2024 15:30:06 Abnormal human chorionic gonadotropin 108601812 O02.81 Z3A.01 [id number] [facility] [address],[place] [address] 03/10/2024 11:04:17 03/10/2024 11:48:20 [id number] Carrie Beatty CNM [facility] [address],[place] [address] 03/10/2024 11:04:47 03/10/2024 14:19:00 Amenorrhea 44457021 N91.2 Venereal d isease screening 118810225 Z11.3 Nausea and vomiting 1693 1999 R11.2 [id number] [facility] [address],[place] [address] 04/09/2024 11:31:47 04/09/2024 12:31:00 screening 828203392 Z36.82 Z3A.12 [id number] [facility] [address] [address] 04/09/2024 11:32:10 04/09/2024 14:59:12 Gestation period, 12 weeks 89425600 Z3A.12 Routine an tenatal care 212553580 Z34.93 [id number] Edwige Quinteros [facility] [address],[place] [address] 04/30/2024 14:29:41 04/30/2024 15:14:07 63201226 Z33.1 [id number] Carrie Beatty [facility] [address],[place] [address] 05/14/2024 10:44:34 05/14/2024 13:24:24 Pruritic rash 39478344 L28.2 Gestation period, 17 weeks 43482120 Z3A.17 [id number] Lesley [facility] [address],[place] [address] 06/11/2024 11:35:56 06/11/2024 13:36:37 screening for malformation 451418652 Z36.3 Z3A.21 [id number] [facility] [address],[place] [address] 06/11/2024 11:36:13 06/11/2024 13:45:49 Gestation period, 21 weeks 09130735 Z3A.21 [id number] [facility] [address],[place] [address] 07/09/2024 11:14:31 07/09/2024 12:04:04 Gestation period, 25 weeks 01620149 Z3A.25 [id number] [facility] [address],[place] [address] 08/04/2024 13:32:49 08/04/2024 14:34:34 Gestation period, 29 weeks 27344358 Z3A.29 [id number] [facility] [address],[place] [address] 08/18/2024 14:24:48 08/18/2024 15:14:09 Routine care 819725008 Z34.93 [id number] Lesley Rodriguez [facility] [address],[place] [address] 09/01/2024 14:10:36 09/01/2024 15:14:22 Past history of pre-eclampsia 4383324816 22704 Z87.59 Z3A.33 [id number] [facility] [address],[place] [address] 09/01/2024 14:10:49 09/01/2024 15:57:34 Gestation period, 33 weeks 96099585 Z3A.33 [id number] Carrie Beatty [facility] [address],[place] [address] 09/15/2024 17:27:19 09/16/2024 06:50:20 screening 946037482 Z36.85 Gestation period, 35 weeks 32022548 Z3A.35 Health Concerns Section Related Observation LastModified by Organization Detai ls LastModified Time None Recorded Concern Status LastModified by Organization Details LastModified Time None Recorded Advance Directives Directive None Recorded Payers Encounter Date Sequence Insurance Name Policy Number Policy Ruvalcaba Covered Member ID Ruvalcaba Member ID Guarantor Name 08/04/2024 2 [place] [facility] Selina Lion Selina Hanks 08/04/2024 1 [facility] [id number] Bk iLon [id number] Selina Hanks 08/18/2024 2 [place] [facility] Selina Jean Baptiste Hanks Selina Hanks 08/18/2024 1 [facility] [id number] Bk Lion [id number] Selina Hanks 09/01/2024 2 [place] [facility] Selina Jean Baptiste Hanks Selina Hanks 09/01/2024 1 [facility] [id number] Bk Lion [id number] Selina Hanks 09/01/2024 2 [place] [facility] Selina Jean Baptiste Hanks Selina Hanks 09/01/2024 1 [facility] [id number] Bk Lion [id number] Selina Hanks 09/15/2024 2 [place] [facility] Selina Lion [id number] Selina Lion 09/15/2024 1 [facility] [id number] Bk Lion [id number] Selina Lion OBGyn Episode Ob Episode Information Episode Created Date Number of Fetuses Patient Bloodtype Patient rh Status Prepregnancy Weight lbs Domestic Partner Domestic Partner Phone Father Name Low Pressure Firer Status 07/04/19 23 1 O Positive 157 CLOSED Fetus Data First Name Last Name Admitted to NICU Weight (g) Sex Living Outcome Pediatric Complications Fetus ID Race Codes Race Delivery Type 3146.79 45 M [id number] Primary Problems Problem Notes Problem Name Start Date End Date Resolution Snomed Code Not e Breech presentation 1010324 footling-CS 01/08 Uterine size for dates discrepancy 11/20/2022 682940350 Anemia 211669069 slowfe 1ta b daily Enrrique Calculation Initial [...] Weight in lbs Pre/Post Dialysis Refused Weight 156.796918841584 BP Diastolic BP Location Tested BP Systolic [...] Weight in lbs Pre/Post Dialysis Refused Weight 158.409037829537 BP Diastolic BP Location Tested BP Systolic [...] Weight in lbs Pre/Post Dialysis Refused Weight 160.528931849242 BP Diastolic BP Location Tested BP Systolic [...] Weight in lbs Pre/Post Dialysis Refused Weight 160.154274293940 BP Diastolic BP Location Tested BP Systolic [...] Weight in lbs Pre/Post Dialysis Refused Weight 172.403481140901 BP Diastolic BP Location Tested BP Systolic [...] Weight in lbs Pre/Post Dialysis Refused Weight 172.788549566957 BP Diastolic BP Location Tested BP Systolic [...] Weight in lbs Pre/Post Dialysis Refused Weight 173.037865190162 BP Diastolic BP Location Tested BP Systolic BP Type 78 124 Fetus Heart Rate Present A 140 Fetus Movement A Yes Comments Dong ok. 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 US next couple visits for S<D. Precautions given. Flowsheet Date 12/04/2022 Wiley Score Blood Edema Fundus Height Fundus Units Glucose Ketones Leukocytes Nitrite Labor Signs Protein Cervic Dilation Cervic Effacement Cervic Station neg trace 34 none trace Type Weight in lbs Pre/Post Dialysis Refused Weight 180.269101330803 BP Diastolic BP Location Tested BP Systolic [...] Weight in lbs Pre/Post Dialysis Refused Weight 184.220437277479 BP Diastolic BP Location Tested BP Systolic [...] Weight in lbs Pre/Post Dialysis Refused Weight 188.875078359663 BP Diastolic BP Location Tested BP Systolic [...] Weight in lbs Pre/Post Dialysis Refused Weight 168.157833515760 BP Diastolic BP Location Tested BP Systolic [...] Estim ated Date of Delivery false Thalassemia (Tunisian, Ugandan, Mediterranean, Or Background): MCV < 80 false Neural Tube Defect (Meningomyelocele, Spina Bifi da, Or Anencephaly) false Congenital Heart Defect false Down Syndrome false Balta-Sachs (eg, Hoahaoism, Cajun, Wolof-[place]) f alse Julia Disease false Sickle Cell Disease Or Trait () false Hemophilia Or Other Blood Disorders false Muscular Dystrophy false Cystic Fibrosis false Perry's Chorea false Intellectual Disability/Autism false If Yes, [...] Domestic Partner Domestic Partner Phone Father Name Low Pressure Firer Status 04/09/20 24 1 O Positive 179 [place] OPEN Fetus Data First Name Last Name Admitted to NICU Weight (g) Sex Living Outcome Pediatric Complications Fetus ID Race Codes Race Delivery Type [id number] Problems Problem Notes Problem Name Start Date End Date Resolution Snomed Code Not e section 12686205 amilcar ech/preeclampsia Past history of pre-eclampsia [id number] bASA daily Impaired glucose tolerance 9367687 3hr gtt schedul ed Enrrique Calculation Initial [...] Date Ultra Sound Latest Days Gestation 0 09/16/2024 10/19/19 25 0 Pre- Flowsheet Flowsheet Date 04/09/2024 Wiley Score Blood Edema Fundus Height Fundus Units Glucose Ketones Leukocytes Nitrite Labor Signs Protein Cervic Dilation Cervic Effacement Cervic Station neg none none trace Type Weight in lbs Pre/Post Dialysis Refused Weight 185.541455755563 BP Diastolic BP Location Tested BP Systolic [...] Type Weight in lbs Pre/Post Dialysis Refused 184.034137607105 BP Diastolic BP Location Tested BP Systolic [...] Type Weight in lbs Pre/Post Dialysis Refused 187.790570190445 BP Diastolic BP Location Tested BP Systolic [...] Type Weight in lbs Pre/Post Dialysis Refused 193.42596121513 BP Diastolic BP Location Tested BP Systolic [...] Type Weight in lbs Pre/Post Dialysis Refused 187.137484340981 BP Diastolic BP Location Tested BP Systolic [...] Type Weight in lbs Pre/Post Dialysis Refused 195.879329042360 BP Diastolic BP Location Tested BP Systolic [...] Type Weight in lbs Pre/Post Dialysis Refused 199.464010654916 BP Diastolic BP Location Tested BP Systolic [...] Weight in lbs Pre/Post Dialysis Refused Weight 200.194751652885 BP Diastolic BP Location Tested BP Systolic [...]
--- NOTE | 2024-10-18 07:33 | PM.OBTRLD ---
OB - Triage/Final Diagnosis Visit Information Comments/Additional reasons for admission: I have assessed the risk for this patient, Selina Lion, and determined that she would benefit from observation care. Evaluation Laboratory results: Laboratory Tests 09/20/24 14:01 Urine Color Yellow Urine Appearance Cloudy H Urine pH 7.5 Ur Specific Hartley 1.021 Urine Protein Negative Urine Glucose (UA) Negative Urine Ketones Negative Ur Blood (Man) Negative Urine Nitrate Negative Urine Bilirubin Negative Urine Urobilinogen 0.2 Leukocyte Esterase Rfl 1+ H Urine RBC 0-2 Urine WBC 11-20 H Ur Squamous Epith Cells Occasional Urine Bacteria 2+ H Urine Casts 0-2 Final Diagnosis (1) False labor: Code(s): O47.9 - False labor, unspecified Status: Acute
== END 2024-09-20 15:33 | disposition home or self-care (01) ==
PROVIDERS: Admitting Provider Obstetrics & Gynecology; PCP Physician Assistant; Visit Provider Obstetrics & Gynecology
DX: O47.03 False labor before 37 completed weeks of gestation, third trimester (principal); Z3A.36 36 weeks gestation of pregnancy
CPT/HCPCS: 81001; 87086; G0378; G0379

== ENCOUNTER 2024-09-27 14:34 | Observation (INO) | payer OTHER, MEDICAID, SELFPAY ==
--- OUTSIDE RECORDS SUMMARY | 2024-09-27 18:01 | XMS_ITS | Data Portability ---
Author [facility] [address] [place] [address] Care Team Providers Care Gospel Worker Name Role Phone BOBBI CARCAMO Primary Care [...] By Organization Details Last Modified Time 08/06/2024 [id number] tinea versicolor : care instructions jnanney Not available 08/06/2024 14:27:06 Reason for Referral None Reported. Results Created Date Observation Date Name Description Value Unit Range Abnormal Flag Note LastModifiedBy Organization Detail LastModifiedTime Result Notes None recorded. Problems No Known Problems Procedures Surgical History Date Name Laterality Status Provider Name and Address Organization Details Recorded Time 3 section completed CRESENCIO Mcgovern [facility] 08/06/2024 14:04:24 Imaging Results None recorded. Procedure [...] DateTime 170.18 cm 29.9 kg/m2 93 % 73427.4 8 g 18 /min 97 % 97 % 114 /min 98.1 [degF] 122 mm[Hg] 78 mm[Hg] CRESENCIO Mcgovern [facility] 14:08:50 Social History Question Answer Notes LastModified by Organizat ion Details LastModified Time Tobacco Smoking Status Never Smoker CRESENCIO Mcgovern [facility] 08/06/2024 13:59:59 What Is Your Level Of [...] Anxious, Or Unable To Sleep At Night)? RH6250-3 Information not available 08/06/2024 Do You Use [...] SNOMED-CT Code Diagnosis ICD10 Code Diagnosis Note [id number] Bobbi Carcamo PA-C [facility] [address] [place] [address] 08/06/2024 13:42:29 08/06/2024 15:16:17 02017471 Z33.1 Hemangioma of skin 89160 006 D18.01 Pityriasis versicolor 56 413912 B36.0 Body mass index 20-24 - normal 035143045 Z68.24 Health Concerns Section Related Observation LastModified by Organization Detai ls LastModified Time None Recorded Concern Status LastModified by Organization Details LastModified Time None Recorded Advance Directives Directive None Recorded Payers Encounter Date Sequence Insurance Name Policy Number Policy Ruvalcaba Covered Member ID Ruvalcaba Member ID Guarantor Name 08/06/2024 2 [place] [facility] Selina Lion [id number] Selina Lion 08/06/2024 1 [facility] [id number] Bk Lion [id number] Selina Lion Notes Date Note Type Note Provider Name and Address Organization Details Recorded Time 08/06/2024 text/html here to establish...29 weeks ...has an ob at [facility]...was with peds before...has a thing on dorsum of left foot Bobbi Carcamo PA-C Attn: Accounting,[address] [place], [address], [facility] 08/06/2024 14:28:00 OBGyn Episode Ob Episode Information Episode Created Date Number of Fetuses Patient Bloodtype Patient rh Status Prepregnancy Weight lbs Domestic Partner Domestic Partner Phone Father Name Community Engagement Leader Status 08/06/19 25 1 CLOSED Fetus Data First Name Last Name Admitted to NICU Weight (g) Sex Living Outcome Pediatric Complications Fetus ID Race Codes Race Delivery Type 6973.97 7 M Full Term 49142 Enrrique Calculation Initial Enrrique Date Initial Exam [...] Discharge Date Comments 3 38 Delivery Site: [facility] Discharge Information Feeding Method Contraceptive Method Maternal HG B and HCT Levels
--- NOTE | 2024-10-18 10:07 | PM.OBTRLD ---
OB - Triage/Final Diagnosis Visit Information Comments/Additional reasons for admission: I have assessed the risk for this patient, Selina Lion, and determined that she would benefit from observation care. Final Diagnosis (1) False labor: Code(s): O47.9 - False labor, unspecified Status: Acute
== END 2024-09-27 17:01 | disposition home or self-care (01) ==
PROVIDERS: Admitting Provider Obstetrics & Gynecology; PCP Physician Assistant; Visit Provider Obstetrics & Gynecology
DX: O47.1 False labor at or after 37 completed weeks of gestation (principal); Z3A.37 37 weeks gestation of pregnancy
CPT/HCPCS: G0378; G0379

== ENCOUNTER 2024-10-06 13:58 | Inpatient (IN) | payer OTHER, MEDICAID, SELFPAY ==
--- OUTSIDE RECORDS SUMMARY | 2024-10-06 14:59 | XMS_ITS | Data Portability ---
Author Organization [facility] Address [address] [place] [address] Care Team Providers Care Account Support Manager Name Role Phone BOBBI CARCAMO Primary Care Provider [phone] Assessment No assessment recorded. Plan of Treatment [...] By Organization Details Last Modified Time 08/06/2024 [id number] tinea versicolor : care instructions jnanney Not available 08/06/2024 14:27:06 Reason for Referral None Reported. Results Created Date Observation Date Name Description Value Unit Range Abnormal Flag Note LastModifiedBy Organization Detail LastModifiedTime Result Notes None recorded. Problems No Known Problems Procedures Surgical History Date Name Laterality Status Provider Name and Address Organization Details Recorded Time 3 section completed CRESENCIO Mcgovern [facility] 08/06/2024 14:04:24 Imaging Results None recorded. [...] mass index (BMI) Body mass index (BMI) [Percentile] Per age and sex Body weight Respiratory rate Oxygen saturation Oxygen saturation in Arterial blood by Pulse oximetry Heart rate Body temperature Systolic blood pressure Diastolic blood pressure Provider Name and Address Organization Details Last Updated DateTime 170.18 cm 29.9 kg/m2 93 % 83615.4 8 g 18 /min 97 % 97 % 114 /min 98.1 [degF] 122 mm[Hg] 78 mm[Hg] CRESENCIO Mcgovern [facility] 14:08:50 Social History Question Answer Notes LastModified by Organizat ion Details LastModified Time Tobacco Smoking Status Never Smoker CRESENCIO Mcgovern [facility] 08/06/2024 13:59:59 What Is Your Level [...] Anxious, Or Unable To Sleep At Night)? CG0203-6 Information not available 08/06/2024 Do You Use [...] SNOMED-CT Code Diagnosis ICD10 Code Diagnosis Note [id number] Russ Aiken MD [facility] [address] [address] 08/06/2024 13:42:29 08/06/2024 15:16:17 93986289 Z33.1 Hemangioma of skin 82049 006 D18.01 Pityriasis versicolor 56 506648 B36.0 Body mass index 20-24 - normal 967545243 Z68.24 Health Concerns Section Related Observation LastModified by Organization Detai ls LastModified Time None Recorded Concern Status LastModified by Organization Details LastModified Time None Recorded Advance Directives Directive None Recorded Payers Encounter Date Sequence Insurance Name Policy Number Policy Ruvalcaba Covered Member ID Ruvalcaba Member ID Guarantor Name 08/06/2024 2 [place] [facility] Selina Lion [id number] Selina Lion 08/06/2024 1 [facility] [id number] Bk Lion [id number] Selina Lion Notes Date Note Type Note Provider Name and Address Organization Details Recorded Time 08/06/2024 text/html here to establish...29 weeks ...has an ob at [facility]...was with peds before...has a thing on dorsum of left foot Bobbi Carcamo PA-C Attn: Accounting,[address] [place], [address], [facility] 08/06/2024 14:28:00 OBGyn Episode Ob Episode Information Episode Created Date Number of Fetuses Patient Bloodtype Patient rh Status Prepregnancy Weight lbs Domestic Partner Domestic Partner Phone Father Name Remedial Reading Teacher Status 08/06/19 25 1 CLOSED Fetus Data First Name Last Name Admitted to NICU Weight (g) Sex Living Outcome Pediatric Complications Fetus ID Race Codes Race Delivery Type 6973.97 7 M Full Term 98212 Enrrique Calculation Initial Enrrique Date Initial Exam [...] Discharge Date Comments 3 38 Delivery Site: [facility] Discharge Information Feeding Method Contraceptive Method Maternal HG B and HCT Levels
--- OUTSIDE RECORDS SUMMARY | 2024-10-06 14:59 | XMS_ITS | Data Portability ---
Author Organization [facility] Address [address] [place] [address] [place] [address] Assessment Encounter Date Assessment Date Assessment LastModified by Organization Details LastModified Time 10/06/2024 10/06/2024 Patient is _38__weeks . Discussed plan. Not available 10/06/2024 13:43:58 Plan of Treatment Reminders Order Date Submit Date Provider Last Modified By Organization Details Last Modified Time Details Appointments U/S OB BPP 2024 10:30A M ULTRASOUND Not available Not available Not available NST 2024 11:00A M NST SCHEDULE Not available Not available Not available OB ROUTINE 2024 11:30A M Carrie Betaty CNM Not available Not available Not available U/S OB BPP 2024 09:30A M ULTRASOUND Not available Not available Not available NST 2024 10:00A M NST SCHEDULE Not available Not available Not available Lab None recorde d. Referral None recorde d. Procedures None recorde d. Surgeries None recorde d. Imaging US, obstetr ic, biophys ical profile + non-str ess test 2024 025 [email or web address] [address], [address], [place], [address], 10/06/2024 15:13:10 non-str ess test 2024 025 [email or web address], [address], [place], [address], 09/30/2024 09:26:02 US, obstetr ic, follow- up 2024 025 [email or web address] [place], [address], [address], [place], [address], 09/30/2024 10:19:18 Medication Orders None recorde d. Patient TargetsNo targets recorded. Patient InstructionsNo instructions recorded. Reason for Referral None Reported. Results Created Date Observation Date Name Description Value Unit Range Abnormal Flag Note LastModifiedBy Organization Detail LastModifiedTime 09/16/1909/15/2024 CULTU RE: GROUP B STREP SCREE N, REFLE X SUSCE PTIBI LITY result report SEE RESULT S BELOW Test: Cultu re: Group B Strep , Refle x Susce ptibi lity ([facility]/ [facility] ) Speci men Sourc e: Vagin a/Rec arlen Speci men Type: Vagin al/Re ctal Speci men Date: 025 1704 Resul t Date: 2024 1400 Resul t Statu s: Final resul t Abnor mal: No Resul ting Lab: [facility] [address] [facility] [address] Tel: CULTU RE ----- ----- ----- --- No Group B strep isola wilfredo at 2 days (heath ctive broth enhan cemen t) Not Available [facility] (Lab) [address], [place], [address], 09/18/2024 15:04:56 09/02/1909/01/2024 US, obste tric, follo w-up No observ ation record ed. [email or web address] [address], [place], [address], 09/01/2024 18:21:06 09/02/19 25 09/01/2024 US, obste tric, follo w-up No observ ation record ed. Arianna [address], [place], [address], 09/02/2024 16:55:38 09/03/19 25 09/02/2024 imagi ng/di agnos tic resul t No observ ation record ed. [facility] [address], [place], [address], 09/02/2024 15:41:00 09/17/19 25 09/16/2024 imagi ng/di agnos tic resul t No observ ation record ed. [facility] [address], [place], [address], 09/16/2024 14:05:08 09/30/19 25 09/29/2024 US, obste tric, follo w-up No observ ation record ed. [email or web address] [place] [address], [place], [address], 09/29/2024 13:42:57 09/30/19 25 09/29/2024 US, obste tric, follo w-up No observ ation record ed. [email or web address] [address], [facility], [place], [address], 10/01/2024 09:49:41 09/30/19 25 09/29/2024 non-s tress test No observ ation record ed. [email or web address] [place] [address], [place], [address], 09/29/2024 19:55:41 09/30/19 25 09/29/2024 non-s tress test No observ ation record ed. [email or web address] [place] [address], [place], [address], 09/29/2024 19:59:25 10/07/19 25 10/06/2024 US, obste tric, bioph ysica l profi le + non-s tress test No observ ation record ed. [email or web address] [place] [address], [place], [address], 10/06/2024 13:25:43 10/07/19 25 10/06/2024 US, obste tric, bioph ysica l profi le + non-s tress test No observ ation record ed. [email or web address] [address], [place], [address], 10/06/2024 12:19:39 Result Notes None recorded. Problems Name Problem SNOMED Code Status Onset Date Resolution Date Notes Provider Name and Address Organization Details Recorded Time Pregnanc y 80462595 Completed 202201/10/2023 Ariana nelson, [facility] 4 13:17:11 Uterine size for dates discrepa ncy 608937161 Completed 2022 Cat nelson, [facility] 3 12:30:20 Anemia 009163114 Completed slowfe 1tab daily Cat nelson, [facility] 3 12:30:20 Breech presenta tion 0753322 Completed footling -CS 01/08 Cat nelson, [facility] 3 12:30:20 Pregnanc y 36008677 Active 2023 Ariana nelson, [facility] 4 13:17:11 Past pregnanc y history of pre-ecla mpsia 9041818629 95382 Active 2024 Ariana nelson, [facility] 5 12:54:51 section Active breech/p reeclamp marissa Beatty, S[facility] [address], [place], [address], [facility] 4 13:55:06 Impaired glucose toleranc e 0260757 Active 3hr gtt schedule d Alisia nelson, [facility] 5 12:02:42 Impaired glucose toleranc e 4846257 Active 3hr gtt schedule d Alisia nelson, [facility] 5 12:02:41 Past pregnanc y history of pre-ecla mpsia 9734810138 98174 Active 2024 Ariana Davey null, [facility] 5 12:54:51 Problem Notes None recorded. Procedures Surgical History Date Name Laterality Status Provider Name and Address Organization Details Recorded Time 3 SECTION (SURG) completed Anna Chow [facility] 01/02/2023 10:39:04 2 IUD Removal completed Angelina Sifuentes [facility]- [address], [place], [address], [facility] 03/11/2022 09:51:40 1 IUD Insertion completed Angelina Sifuentes [facility]- [address], [place], [address], [facility] 04/12/2021 10:59:44 Imaging Results Imaging Date Name Status LastModified by Organiz ation Details LastModified Time 09/01/2024 US, obstetric, follow-up completed [email or web address] [place] [address], [place], [address], 09/01/2024 18:21:06 09/01/2024 US, obstetric, follow-up completed [address], [facility], [place], [address], 09/02/2024 16:55:38 09/02/2024 imaging/diagnos tic result active [facility] [address], [place], [address], 09/02/2024 15:41:00 09/16/2024 imaging/diagnos tic result active [facility] [address], [place], [address], 09/16/2024 14:05:08 09/29/2024 US, obstetric, follow-up [email or web address] [place] [address], [place], [address], 09/29/2024 13:42:57 09/29/2024 US, obstetric, follow-up completed [email or web address] [address], [place], [address], 10/01/2024 09:49:41 09/29/2024 non-stress test completed [address], [place], [address], 09/29/2024 19:55:41 09/29/2024 non-stress test completed [address], [place], [address], 09/29/2024 19:59:25 10/06/2024 US, obstetric, biophysical profile + non-stress test completed [address], [place], [address], 10/06/2024 13:25:43 10/06/2024 US, obstetric, biophysical profile + non-stress test active [email or web address] [address], [place], [address], 10/06/2024 12:19:39 Procedure Notes None recorded. Medical Equipment None [...] [Percentile] Per age and sex Body weight Body height Body mass index (BMI) [Percentile] Per age and sex Body mass index (BMI) Body weight Systolic blood pressure Diastolic blood pressure Systolic blood pressure Diastolic blood pressure Provider Name and Address Organization Details Last Updated DateTime 5 167.64 cm 32 kg/m2 95 % 22969.2 9 g 167.64 cm 95 % 32 kg/m2 64496.2 9 g 119 mm[Hg] 75 mm[Hg] 119 mm[Hg] 75 mm[Hg] Ariana Davey [facility] 5 19:50:20 Date Recorded Body weight Body mass index (BMI) Body mass index (BMI) [Percentile] Per age and sex Body height Systolic blood pressure Diastolic blood pressure Provider Name and Address Organization Details Last Updated DateTime 5 60886.0 6637 g 32.4 kg/m2 95 % 167.64 cm 114 mm[Hg] 72 mm[Hg] Ariana Davey [facility] 5 12:54:16 Social History Question Answer Notes LastModified by Organizat ion Details LastModified Time Tobacco Smoking Status Never Smoker [email or web address] 12/15/2019 10:08:23 What Is Your Level [...] COVID-19 While That Case Was Ill? No [email or web address] Information n ot available 06/12/2022 In The 14 Days Before Symptom Onset, Have You Had Close Contact With A Person Who Is Under Investigation For COVID-19 While That Person Was Ill? No [email or web address] Information not available 06/12/2022 Have You Been To An Area Known To Be High Risk For COVID-19? No [email or web address] Information not available 06/12/2022 Are You Currently Employed? No Information not available 10/10/2020 Are You Deaf Or Do You Have Serious Difficulty Hearing? No Information not available 10/09/2020 What Type Of Diet Are You Following? REGULAR Information n ot available 10/09/2020 What Is The Highest Grade Or Level Of School You Have Completed Or The Highest Degree You Have Received? [id number] Information not available 10/10/2020 Do You Use Your Seat Belt Or Car Seat Routinely? Yes Information not available 10/09/2020 Are You Sexually Active? No Information not available 10/10/2020 Do You Have Smoke And Carbon Monoxide Detectors In Your Home? Yes Information not available 10/09/2020 Do You Feel Stressed (tense, Restless, Nervous, Or Anxious, Or Unable To Sleep At Night)? [id number] Information not available 10/09/2020 Do You Use Any Illicit Or Recreational Drugs? No Information not available 10/09/2020 Do You Use Sunscreen Routinely? Yes Information not available 10/09/2020 Has Tobacco Cessation Counseling Been Provided? No [email or web address] Information not available 06/12/2022 Do You Or Have You Ever Used Any Other Forms Of Tobacco Or Nicotine? No [email or web address] Information not available 06/12/2022 Sex: Unknown Functional Status Question Answer Note LastModified by Organizat ion Details LastModified Time Do you have difficulty walking or climbing stairs? No [email or web address] Information not available 06/14/2022 Are you able [...] Depression/ depression N Heart Disease N Pre-Eclampsia Y Hypertension N Osteoporosis N Thrombophilias N Gynecological [...] mcg/0.3 mL dose 12/09/2020 completed Dinora Fournier [facility] 01/11/2021 11:07:15 Past Encounters Encounter ID Performer Location Encounter Start Date Encounter Closed Date Diagnosis/Indication Diagnosis SNOMED-CT Code Diagnosis ICD10 Code Diagnosis Note [id number] Angelina Sifuentes [facility] [address],[place] [address] 12/15/2019 10:02:27 12/15/2019 11:44:58 Contraception care management 012540507 N92.6 N94.5 Discussed all control options in [...] read and signed. [place]. [id number] Angelina Sifuentes [facility] [address],[place] [address] 04/25/2020 11:53:47 04/25/2020 12:16:54 Contraception care management 062554718 N92.6 N94.5 Patient is here today for [...] counseling and review of plan of care. [id number] Angelina Sifuentes [facility] [address],[place] [address] 10/10/2020 11:25:15 10/10/2020 12:19:55 Secondary dysmenorrhea 82951264 N94.5 Discussed all control options in great [...] this patient s visit, including available hand engine manager upon arrive, temperatur e check and being asked a series of screening questions. All staff wore face coverings during this encounter, as well as provided additional cleaning and sanitizing of all surfaces, including countertop s, pens, chairs, door handles, light switches, etc, prior to and following the patient s visit. [id number] Angelina Sifuentes [facility] [address] [address] 01/11/2021 10:29:04 01/11/2021 12:30:49 Contraception care management 747234783 N92.6 N94.5 Discussed all control options in [...] this patient s visit, including available hand engine manager upon arrive, temperatur e check and being asked a series of screening questions. All staff wore face coverings during this encounter, as well as provided additional cleaning and sanitizing of all surfaces, including countertop s, pens, chairs, door handles, light switches, etc, prior to and following the patient s visit. [id number] Angelina Sifuentes [facility] [address] [address] 03/22/2021 14:38:59 03/22/2021 15:26:35 Contraception care management 508383037 N92.6 N94.5 Discussed all control options and [...] to patient satisfacti on. [facility] to [...] this patient s visit, including available hand engine manager upon arrive, temperatur e check and being asked a series of screening questions. All staff wore face coverings during this encounter, as well as provided additional cleaning and sanitizing of all surfaces, including counter-to ps, pens, chairs, door handles, light switches, etc, prior to and following the patient s visit. [id number] Angelina Sifuentes [facility] [address] [address] 04/12/2021 10:05:29 04/12/2021 11:37:06 Screening procedure 27479030 Z13.9 Insertion of intrauterine contraceptive device 74612012 Z30.430 She has been counseled on all [...] understand ing. RTO x 6wks IUD check [id number] [facility] [address] [address] 05/28/2021 10:22:19 05/28/2021 10:48:40 IUD check 393411321 Z30.431 Patient is here for 4-6wk IUD [...] this patient s visit, including available hand engine manager upon arrive, temperatur e check and being asked a series of screening questions. All staff wore face coverings during this encounter, as well as provided additional cleaning and sanitizing of all surfaces, including countertop s, pens, chairs, door handles, light switches, etc, prior to and following the patient s visit. [id number] Angelina Sifuentes , [facility] [address],[place] [address] 10/11/2021 12:52:40 10/11/2021 13:37:36 Sexually transmitted infectious disease 2555593 A64 Will contact via portal with results if wnl.If any abn's will call her. Time spent in visit is a total of 15 mins with at least 50% of visit consisting of counseling and review of plan of care. [id number] Angelina Sifuentes [facility] [address],[place] [address] 11/12/2021 12:17:53 11/12/2021 12:56:10 Venereal disease screening 124828823 Z11.3 Here today for TOCSTD sentSafe sex education career counselor providedAl l questions answered Time spent in visit is a total of 15 mins with at least 50% of visit consisting of counseling and review of plan of care. [id number] Angelina Sifuentes , [facility] [address],[place] [address] 02/06/2022 11:53:37 02/06/2022 12:43:30 Gynecologic examination 78449442 Z01.419 Take Calcium with Vitamin D 1200mg [...] Routine Labs na Contracept ion care management 017273509 N92.6 N94.5 Doing well on KyleenaChe cks stringsNo issues [id number] Angelina Sifuentes [facility] [address],[place] [address] 02/27/2022 14:49:47 02/27/2022 15:48:24 Urinary symptoms 487580024 R39.9 [id number] Angelina Sifuentes [facility] [address],[place] [address] 03/05/2022 09:55:09 03/05/2022 10:52:35 IUD check 686845798 Z30.431 Patient is here for IUD string check--was unable to feel her strings. She denies complicati ons, pain, or unpleasant side effects. Overall, Happy with this control method. Exam WNL--IUD strings detected on exam Time spent in visit is a total of 15 mins with at least 50% of visit consisting of counseling and review of plan of care. [id number] Angelina Sifuentes [facility] [address],[place] [address] 03/11/2022 09:31:51 03/11/2022 10:09:10 Removal of intrauterine device 51682258 Z30.432 It was explained that she may [...] d if trying to prevent / STD's. [id number] Hector Sullivan MD [facility] [address],[place] [address] 06/12/2022 16:21:42 06/12/2022 18:21:31 screening 231104242 Z36.87 [id number] Carrie Beatty [facility] [address],[place] [address] 06/12/2022 16:22:04 06/13/2022 18:03:21 Amenorrhea 33550710 N91.2 [id number] Carrie Beatty [facility] [address],[place] [address] 06/14/2022 12:06:07 06/14/2022 13:39:52 Amenorrhea 19196259 N91.2 [facility] 145471646 R11.0 [id number] Hector Sullivan MD [place] [address],[place] [address] 07/04/2022 14:58:31 07/04/2022 15:49:56 screening 563145927 Z36.82 [id number] Hector Sullivan MD [facility] [address],[place] [address] 07/04/2022 14:59:46 07/05/2022 14:25:28 Routine care 905313707 Z34.91 [id number] Sneha Corona [facility] [address],[place] [address] 08/01/2022 14:52:46 08/01/2022 16:41:42 Routine care 688707508 Z34.92 [id number] Hector Sullivan MD [facility] [address],[place] [address] 08/29/2022 14:49:22 08/29/2022 16:31:40 screening 969456252 Z36.3 [id number] Sneha Corona [facility] [address],[place] [address] 08/29/2022 14:50:01 08/29/2022 16:29:53 Routine care 964000054 Z34.92 [id number] MD [place] [address],[place] [address] 09/27/2022 14:47:06 09/30/2022 15:12:03 Routine care 335954895 Z34.92 [id number] MD [place] [address],[place] [address] 09/27/2022 14:48:10 09/30/2022 15:12:32 screening 734200280 Z36.2 Z3A.24 [id number] MD Marie [place] [address],[place] [address] 10/22/2022 11:11:41 10/22/2022 11:59:32 screening 906615403 Z36.2 [id number] MD Marie [place] [address],[place] [address] 10/22/2022 11:11:58 10/22/2022 13:54:34 Routine care 615500658 Z34.92 [id number] Roula Gilbert MD [facility] [address],[place] [address] 11/05/2022 14:36:43 11/06/2022 15:15:26 Routine care 431065816 Z34.92 [id number] MD Marie [place] [address] [place] [address] 11/19/2022 14:13:04 11/20/2022 16:23:39 Routine care 617267833 Z34.92 Uterine si ze for dates discrepancy 550408860 O26.849 [id number] Carrie Beatty, [facility] [address] [place] [address] 12/04/2022 13:53:38 12/04/2022 14:14:45 Routine care 962868803 Z34.93 [id number] Roula Gilbert MD [place] [address] [place] [address] 12/17/2022 13:40:11 12/17/2022 14:11:31 Uterine size for dates discrepancy 514750002 O26.843 Z3A.35 [id number] MD [place] [address],[place] [address] 12/17/2022 13:40:46 12/18/2022 10:45:49 Breech presentation 6227806 O32.1XX9 Routine an tenatal care 403090603 Z34.92 [id number] MD [place] [address],[place] [address] 12/24/2022 14:05:39 12/25/2022 11:56:12 Routine care 847102652 Z34.92 - induced hypertension 53304445 O13.9 Breech presentation 6096 002 O32.1XX9 [id number] MD [place] [address] [place] [address] 01/10/2023 12:03:34 01/10/2023 14:15:53 [id number] MD [place] [address] [place] [address] 01/20/2023 12:15:55 01/20/2023 13:39:53 Past history of pre-eclampsia 5634185376 13774 Z87.59 Wound seroma 389549258 T 88.8XXD [id number] MD [place] [address] [place] [address] 02/03/2023 14:40:58 02/06/2023 22:09:57 Postoperative visit 549699507 Z09 [id number] MD [place] [address] [place] [address] 02/14/2023 11:20:54 02/14/2023 11:52:37 care 858289080 Z39.2 Contracept ion care management 583365835 Z30.9 [id number] MD [place] [address] [place] [address] 02/20/2023 16:50:41 02/21/2023 15:47:07 Contraception care management 876433732 Z30.9 Contraception care 31555 5005 Z30.40 [id number] Angelina Sifuentes [facility] [address],[place] [address] 10/21/2023 10:29:34 10/21/2023 11:09:21 Abnormal uterine bleeding 1734931414 9100 N93.9 Today we discussed ways we [...] counseling and review of plan of care. [id number] Hector Sullivan MD [facility] [address],[place] [address] 03/04/2024 14:55:25 03/04/2024 15:30:06 Abnormal human chorionic gonadotropin 343353982 O02.81 Z3A.01 [id number] Hector Sullivan MD [facility] [address],[place] [address] 03/10/2024 11:04:17 03/10/2024 11:48:20 [id number] [facility] [address],[place] [address] 03/10/2024 11:04:47 03/10/2024 14:19:00 Amenorrhea 04670031 N91.2 Venereal d isease screening 117463942 Z11.3 Nausea and vomiting 1693 2000 R11.2 [id number] Hector Sullivan MD [place] [address],[place] [address] 04/09/2024 11:31:47 04/09/2024 12:31:00 screening 235918327 Z36.82 Z3A.12 [id number] [facility] [address],[place] [address] 04/09/2024 11:32:10 04/09/2024 14:59:12 Gestation period, 12 weeks 55643728 Z3A.12 Routine an tenatal care 295497932 Z34.93 [id number] Hector Sullivan MD [facility] [address],[place] [address] 04/30/2024 14:29:41 04/30/2024 15:14:07 22289224 Z33.1 [id number] [facility] [address],[place] [address] 05/14/2024 10:44:34 05/14/2024 13:24:24 Pruritic rash 68941668 L28.2 Gestation period, 17 weeks 73254832 Z3A.17 [id number] Hector Sullivan MD [facility] [address],[place] [address] 06/11/2024 11:35:56 06/11/2024 13:36:37 screening for malformation 231017255 Z36.3 Z3A.21 [id number] [facility] [address],[place] [address] 06/11/2024 11:36:13 06/11/2024 13:45:49 Gestation period, 21 weeks 75595530 Z3A.21 [id number] [facility] [address],[place] [address] 07/09/2024 11:14:31 07/09/2024 12:04:04 Gestation period, 25 weeks 20905314 Z3A.25 [id number] [facility] [address],[place] [address] 08/04/2024 13:32:49 08/04/2024 14:34:34 Gestation period, 29 weeks 68633378 Z3A.29 [id number] [facility] [address],[place] [address] 08/18/2024 14:24:48 08/18/2024 15:14:09 Routine care 124261757 Z34.93 [id number] Hector Sullivan MD [facility] [address],[place] [address] 09/01/2024 14:10:36 09/01/2024 15:14:22 Past history of pre-eclampsia 6252083883 08237 Z87.59 Z3A.33 [id number] [facility] [address],[place] [address] 09/01/2024 14:10:49 09/01/2024 15:57:34 Gestation period, 33 weeks 86345873 Z3A.33 [id number] [facility] [address],[place] [address] 09/15/2024 17:27:19 09/16/2024 06:50:20 screening 532208192 Z36.85 Gestation period, 35 weeks 42070475 Z3A.35 [id number] Hector Sullivan MD [facility] [address],[place] [address] 09/23/2024 10:20:29 09/23/2024 11:26:23 [id number] Hector Sullivan MD [place] [address],[place] [address] 09/29/2024 11:53:20 09/29/2024 12:58:28 care status 433690635 O36.5930 Z3A.37 [id number] [facility] [address],[place] [address] 09/29/2024 11:53:31 09/29/2024 13:29:01 Gestation period, 37 weeks 98716990 Z3A.37 [id number] [facility] [address],[place] [address] 09/29/2024 19:47:03 09/30/2024 09:26:02 Oligohydramnios 81546560 O41.03X0 [id number] Hector Sullivan MD [facility] [address] [address] 10/06/2024 11:22:55 10/06/2024 12:20:57 Past history of pre-eclampsia 2835554159 73846 O09.299 Z3A.38 [id number] Carrie Beatty [facility] [address],[place] [address] 10/06/2024 11:23:27 10/06/2024 13:51:28 Gestation period, 38 weeks 67420208 Z3A.38 Health Concerns Section Related Observation LastModified by Organization Detai ls LastModified Time None Recorded Concern Status LastModified by Organization Details LastModified Time None Recorded Advance Directives Directive None Recorded Payers Encounter Date Sequence Insurance Name Policy Number Policy Ruvalcaba Covered Member ID Ruvalcaba Member ID Guarantor Name 09/29/2024 2 [place] Selina Lion Selina Hanks 09/29/2024 1 [facility] [id number] Bk Lion [id number] Selina Hanks 09/29/2024 2 [place] [facility] OF PUBLIC AID Selina Lion Selina Hanks 09/29/2024 1 [facility] [id number] Bk Lion [id number] Selina Hanks 10/06/2024 2 [place] [facility] OF PUBLIC AID Selina Lion Selina Hanks 10/06/2024 1 [facility] [id number] Bk Lion [id number] Selina Hanks 10/06/2024 2 [place] [facility] OF PUBLIC AID Selina Lion Selina Hanks 10/06/2024 1 [facility] [id number] Bk Lion [id number] Selina Lion OBGyn Episode Ob Episode Information Episode Created Date Number of Fetuses Patient Bloodtype Patient rh Status Prepregnancy Weight lbs Domestic Partner Domestic Partner Phone Father Name Electro Optics Engineer Status 07/04/19 23 1 O Positive 157 CLOSED Fetus Data First Name Last Name Admitted to NICU Weight (g) Sex Living Outcome Pediatric Complications Fetus ID Race Codes Race Delivery Type 3146.79 [id number] M [id number] Primary Problems Problem Notes Problem Name Start Date End Date Resolution Snomed Code Not e Breech presentation [id number] footling-CS 01/08 Uterine size for dates discrepancy 11/20/2022 [id number] Anemia [id number] slowfe 1ta b daily Enrrique Calculation Initial [...] Weight in lbs Pre/Post Dialysis Refused Weight 156.601323719823 BP Diastolic BP Location Tested BP Systolic [...] Weight in lbs Pre/Post Dialysis Refused Weight 158.062050175448 BP Diastolic BP Location Tested BP Systolic [...] Weight in lbs Pre/Post Dialysis Refused Weight 160.096080832662 BP Diastolic BP Location Tested BP Systolic [...] Weight in lbs Pre/Post Dialysis Refused Weight 160.286484557040 BP Diastolic BP Location Tested BP Systolic [...] Present Fetus Movement Comments Flowsheet Date 10/22/2022 Wilye Score Blood Edema Fundus Height Fundus Units [...] Weight in lbs Pre/Post Dialysis Refused Weight 172.316828763698 BP Diastolic BP Location Tested BP Systolic [...] Weight in lbs Pre/Post Dialysis Refused Weight 172.941716198734 BP Diastolic BP Location Tested BP Systolic [...] Weight in lbs Pre/Post Dialysis Refused Weight 173.583262333024 BP Diastolic BP Location Tested BP Systolic BP Type 78 124 Fetus Heart Rate Present A 140 Fetus Movement A Yes Comments Dong ok. Will do Tdap, Will schedule preregistration and get softball coach. US next couple visits for S<D. Precautions given. Flowsheet Date 12/04/2022 Wiley Score Blood Edema Fundus Height Fundus Units Glucose Ketones Leukocytes Nitrite Labor Signs Protein Cervic Dilation Cervic Effacement Cervic Station neg trace 34 none trace Type Weight in lbs Pre/Post Dialysis Refused Weight 180.084484391454 BP Diastolic BP Location Tested BP Systolic [...] Weight in lbs Pre/Post Dialysis Refused Weight 184.051275475391 BP Diastolic BP Location Tested BP Systolic [...] Weight in lbs Pre/Post Dialysis Refused Weight 188.597418051636 BP Diastolic BP Location Tested BP Systolic [...] Weight in lbs Pre/Post Dialysis Refused Weight 168.057322771363 BP Diastolic BP Location Tested BP Systolic [...] Estim ated Date of Delivery false Thalassemia (Bruneian, Armenian, Mediterranean, Or Background): MCV < 80 false Neural Tube Defect (Meningomyelocele, Spina Bifi da, Or Anencephaly) false Congenital Heart Defect false Down Syndrome false Balta-Sachs (eg, Roman Catholic, Cajun, Australian-Flaxton) f alse Julia Disease false Sickle Cell Disease Or Trait () false Hemophilia Or Other Blood Disorders false Muscular Dystrophy false Cystic Fibrosis false Gila's Chorea false Intellectual Disability/Autism false If Yes, [...] Domestic Partner Domestic Partner Phone Father Name Electro Optics Engineer Status 04/09/20 24 1 O Positive 179 [place] Francis OPEN Fetus Data First Name Last Name Admitted to NICU Weight (g) Sex Living Outcome Pediatric Complications Fetus ID Race Codes Race Delivery Type [id number] Problems Problem Notes Problem Name Start Date End Date Resolution Snomed Code Not e section [id number] amilcar ech/preeclampsia Past history of pre-eclampsia 10/06/2024 [id number] Impaired glucose tolerance [id number] 3hr gtt schedul ed Enrrique Calculation Initial [...] Date Ultra Sound Latest Days Gestation 0 [email or web address] 09/16/2024 10/19/19 25 0 Pre-nik Flowsheet Flowsheet Date 04/09/2024 Wiley Score Blood Edema Fundus Height Fundus Units Glucose Ketones Leukocytes Nitrite Labor Signs Protein Cervic Dilation Cervic Effacement Cervic Station neg none none trace Type Weight in lbs Pre/Post Dialysis Refused Weight 185.682563992656 BP Diastolic BP Location Tested BP Systolic [...] Type Weight in lbs Pre/Post Dialysis Refused 184.848387839275 BP Diastolic BP Location Tested BP Systolic [...] Type Weight in lbs Pre/Post Dialysis Refused 187.783338815844 BP Diastolic BP Location Tested BP Systolic [...] Type Weight in lbs Pre/Post Dialysis Refused 193.71559296810 BP Diastolic BP Location Tested BP Systolic [...] Type Weight in lbs Pre/Post Dialysis Refused 187.167958013930 BP Diastolic BP Location Tested BP Systolic [...] Type Weight in lbs Pre/Post Dialysis Refused 195.289482557770 BP Diastolic BP Location Tested BP Systolic [...] Type Weight in lbs Pre/Post Dialysis Refused 199.258764868199 BP Diastolic BP Location Tested BP Systolic [...] Weight in lbs Pre/Post Dialysis Refused Weight 200.114167259380 BP Diastolic BP Location Tested BP Systolic BP Type 69 100 Fetus Heart Rate Present Fetus Movement A Yes Comments Patient is having back pain, contractions, discharge and swelling. vertex, low, +FM precautions and education GBS collected f/u one week Flowsheet Date 09/23/2024 Wiley Score Blood Edema Fundus Height Fundus Units Glucose Ketones Leukocytes Nitrite Labor Signs Protein Cervic Dilation Cervic Effacement Cervic Station 2+ 3cm 70% -3 Type Weight in lbs Pre/Post Dialysis Refused Weight 201.929308883175 BP Diastolic BP Location Tested BP Systolic BP Type 79 L arm 124 sitting Fetus Heart Rate Present A 142 Fetus Movement A Yes Comments no complaints, no problems, routine care, no contractions, no vaginal bleeding, no loss of fluid, no cramping Flowsheet Date 09/29/2024 Wiley Score Blood Edema Fundus Height Fundus Units Glucose Ketones Leukocytes Nitrite Labor Signs Protein Cervic Dilation Cervic Effacement Cervic Station Type Weight in lbs Pre/Post Dialysis Refused BP Diastolic BP Location Tested BP Systolic BP Type Fetus Heart Rate Present Fetus Movement Comments Flowsheet Date 09/29/2024 Wiley Score Blood Edema Fundus Height Fundus Units Glucose Ketones Leukocytes Nitrite Labor Signs Protein Cervic Dilation Cervic Effacement Cervic Station Type Weight in lbs Pre/Post Dialysis Refused Weight 198.071932270004 BP Diastolic BP Location Tested BP Systolic BP Type 75 119 Fetus Heart Rate Present Fetus Movement Comments Flowsheet Date 09/29/2024 Wiley Score Blood Edema Fundus Height Fundus Units Glucose Ketones Leukocytes Nitrite Labor Signs Protein Cervic Dilation Cervic Effacement Cervic Station neg trace 142 cm 3cm 70% -3 Type Weight in lbs Pre/Post Dialysis Refused Weight 198.316567821168 BP Diastolic BP Location Tested BP Systolic BP Type 75 119 Fetus Heart Rate Present Fetus Movement A Yes Comments Patient states that is havin g some pressure and swelling. education and precautions, reviewed us, plan rpt us and nst next week , Flowsheet Date 10/06/2024 Wiley Score Blood Edema Fundus Height Fundus Units Glucose Ketones Leukocytes Nitrite Labor Signs Protein Cervic Dilation Cervic Effacement Cervic Station Type Weight in lbs Pre/Post Dialysis Refused BP Diastolic BP Location Tested BP Systolic BP Type Fetus Heart Rate Present Fetus Movement Comments Flowsheet Date 10/06/2024 Wiley Score Blood Edema Fundus Height Fundus Units Glucose Ketones Leukocytes Nitrite Labor Signs Protein Cervic Dilation Cervic Effacement Cervic Station Type Weight in lbs Pre/Post Dialysis Refused BP Diastolic BP Location Tested BP Systolic BP Type Fetus Heart Rate Present Fetus Movement Comments Flowsheet Date 10/06/2024 Wiley Score Blood Edema Fundus Height Fundus Units Glucose Ketones Leukocytes Nitrite Labor Signs Protein Cervic Dilation Cervic Effacement Cervic Station neg none Type Weight in lbs Pre/Post Dialysis Refused 201.211722407699 BP Diastolic BP Location Tested BP Systolic BP Type 72 114 Fetus Heart Rate Present Fetus Movement A Yes Comments bpp, manjula 5.9 with 2x2 pocket , rpt friday, no leaking +FM, precautions and education Menstrual History Last Menstrual Date Menses Monthly [...]
[2024-10-06 18:04] LABS: Basophils Percent Auto 0.1 % (0.2-1.2); Eosinophils Absolute Auto 0.1 K/mm3 (0-0.3); Eosinophils Percent Auto 0.6 % (0-4.4); Hematocrit 31.9 % (37.0-47.0); Hemoglobin 10.5 g/dL (12.0-15.0); Immature Granulocyte Absolute 0.02 K/mm3 (0.00-0.031); Immature Granulocyte Percent A 0.2 % (0-0.5); Lymphocytes Absolute Auto 1.48 K/mm3 (0.9-3.2); Lymphocytes Percent Auto 16.9 % (18.3-44.2); Mean Corpuscular HGB Conc 32.9 g/dl (32-36); Mean Corpuscular Volume 88.1 fl (80-100); Mean Platelet Volume 10.7 fl (7.4-10.4); Monocytes Absolute Auto 0.8 K/mm3 (0.1-0.6); Monocytes Percent Auto 8.7 % (2.6-8.5); Neutrophils Absolute Auto 6.5 K/mm3 (1.3-6.7); Neutrophils Percent Auto 73.5 % (45.5-73.1); Platelet Count Result 155 k/mm3 (150-375); Red Blood Count 3.62 M/mm3 (4.2-5.4); Red Cell Distribution Width 14.1 % (11.5-14.5); White Blood Count 8.8 K/mm3 (4.5-10.0)
--- NOTE | 2024-10-06 18:14 | PM.IMHP ---
H&P: HPI History of Present Illness Date/Time: 10/06/24 18:14 Chief Complaint: pt is here for monitoring and IOL, diagnosed with oligohydramnios. past history of section, breech, preeclampsia. today bps are normotensive. FHR category 1 Review of Systems Review of Systems: All systems reviewed & are unremarkable except as noted in HPI and below PMFSH Past Medical History Medical History (Updated 10/06/24 @ 18:19 by Carrie Beatty CNM) Pre-eclampsia Family History Family History Grandparent Cancer Grandparent Cancer Social History Social History Smoking status: Never smoker Alcohol intake: never Substance use: never Do You Feel Safe in your Home?: Yes Lack of Transportation: No Lack of Food: Never True Current Housing: I Have Housing Concerned About Future Housing: No Difficulty Paying Gas/Electric Bills: No Difficulty Paying for Meds: No Currently Unemployed: No Education: Decline to Answer Difficulty w/ Childcare or Family Care: No Living arrangements: with family Gender identity (if verbalized by the patient): Female Spiritual care concerns: No Meds Home Medications and Allergies Home Medications ?Medication ?Instructions ?Recorded ?Confirmed ?Type vit no.95-ferrous 1 tablet PO DAILY 09/20/24 09/20/24 History fumarate 28 mg-folic acid 800 mcg tablet () Allergies Allergy/AdvReac Type Severity Reaction Status Date / Time No Known Allergies Allergy Verified 09/20/24 13:58 Exam Const: General: cooperative, healthy appearing and comfortable Chest: Chest palpation & inspection: normal inspection of the chest Resp: Effort & Inspection: normal respiratory effort Cardio: Rate: regular rate Rhythm: regular rhythm GI: Other: soft/gravid : General: Yes bimanual renal exam normal bilaterally H&P: Results Labs Labs: Short CBC 10/06/24 Range/Units 17:46 WBC 8.8 (4.5-10.0) K/mm3 Hgb 10.5 L (12.0-15.0) g/dL Hct 31.9 L (37.0-47.0) % Plt Count 155 (150-375) k/mm3 Assessment and Plan Assessment and plan (1) Oligohydramnios: Code(s): O41.00X0 - Oligohydramnios, unspecified trimester, not applicable or unspecified Status: Acute Assessment and Plan: co-managing pt with dr. amor, plan to start IOL in the am, plan pitocin, and AROM reviewed risk of uterine rupture with TOLAC (2) History of section: Code(s): Z98.891 - History of uterine scar from previous surgery Status: Acute (3) History of pre-eclampsia: Code(s): Z87.59 - Personal history of other complications of , childbirth and the puerperium Status: Acute
[2024-10-06 18:17] VITALS: BP 113/66; PULSE 83
[2024-10-06 18:39] LABS: Syphilis IgG/IgM Antibody Negative (Negative)
[2024-10-06 18:54] LABS: HIV 1/2 Ab P24 Ag Result Negative (Negative)
[2024-10-06 19:01] VITALS: BP 132/91; PULSE 89
[2024-10-06 20:44] VITALS: BMI 31.7
--- NOTE | 2024-10-06 20:44 | LDADM ---
This patient, Selina Lion, was admitted to Labor/Delivery/Recovery 102 on 10/06/24 at 13:58. Plans for labor, pain management and were discussed with patient. Patient/family oriented to hospital policies and general routines including ID bracelet, bed and alarms, visiting hours, pain management, procedures, bathroom and other care routines, personal items, smoking policy, room service/diet and guest tray routines, security routines, and visiting hours. Patient/Family are encouraged to report perceived risks to care and to ask questions if they do not understand what they are told or what they should do. See OBIX for further documentation.
[2024-10-06 21:00] VITALS: BP 116/67; PULSE 84
[2024-10-07] VITALS (102 sets, daily range): BP systolic 90–140; BP diastolic 45–87; PULSE 58–189; RESP 16–18; TEMP 36.3–36.9; O2SAT 95–100
[2024-10-07] MEDS: OXYTOCIN 30 UNITS/NS 500 ML 30 UNITS/500 ML BAG IV CONT (06:21)
[2024-10-07] MEDS: LACTATED RINGERS 1,000 ML 125 ML IV CONT ×2 (06:22→11:07)
--- NOTE | 2024-10-07 07:59 | PM.OBPNLAB ---
Pain Control Date/time seen: 10/07/24 07:59 Comments: SVE /-2 AROM clear fluid, anticipate vaginal delivery, IUPC placed
[2024-10-07] MEDS: ONDANSETRON INJ 4 MG/2 ML VIAL IV PUSH (09:22)
[2024-10-07] MEDS: CALCIUM CARBONATE (TUMS) 500 MG (200 MG ELEMENTAL) PO (11:57)
[2024-10-07] MEDS: miSOPROStol 200 MCG TABLET 800 MCG RECTAL (12:35)
--- NOTE | 2024-10-07 12:39 | PM.OBPRVD ---
OB - Vaginal Delivery Note Procedure Delivery date: 10/07/24 Events: Oligohydramnios and Previous Delivery Induction method: AROM and Per Pitocin Protocol Delivery monitor: External FHT and Internal Uterine Route of delivery: Episiotomy description: None Specimen: No Quantitative Blood Loss (ml): 175 Anesthesia type: Epidural Disposition: Floor Baby Date of : 10/07/24 Time of : 12:25 Gestational Age by Date: 38 Infant gender: Female presentation: vertex position: Left Occiput Anterior Placenta delivery description: Spontaneous Cord Vessel Description: 3 Vessels, Nuchal Cord (x1), Loose and Delayed Cord Clamping score one minute: 8 score five minutes: 9
[2024-10-07] MEDS: OXYTOCIN 30 UNITS/NS 500 ML 30 UNITS/500 ML BAG 125 UNITS IV CONT (13:05)
--- NOTE | 2024-10-07 13:23 | WPDANESEPP ---
Anes - Eval Pre Procedure Procedure: Labor epidural Date/Time: 10/07/24 13:23 Surgeon: Nate Preop Diagnosis: Pain during labor Pre Op Diagnosis: IOL Patient Data Age: 19 Gender: F Height: 1.7 m Weight: 92 kg Last Vital Signs Temp 36.3 C L 10/07/24 06:30 Pulse 73 10/07/24 13:16 BP 118/52 L 10/07/24 13:16 Pulse Ox 95 10/07/24 12:24 O2 Del Method Room Air 10/06/24 20:44 Allergies Allergy/AdvReac Type Severity Reaction Status Date / Time No Known Allergies Allergy Verified 09/20/24 13:58 Home Medications ?Medication ?Instructions ?Recorded ?Confirmed ?Type vit no.95-ferrous 1 tablet PO DAILY 09/20/24 09/20/24 History fumarate 28 mg-folic acid 800 mcg tablet () Laboratory Tests 10/06/24 17:46 WBC 8.8 K/mm3 (4.5-10.0) RBC 3.62 L M/mm3 (4.2-5.4) Hgb 10.5 L g/dL (12.0-15.0) Hct 31.9 L % (37.0-47.0) MCV 88.1 fl (80-100) MCH 29.0 pg (26-34) MCHC 32.9 g/dl (32-36) RDW 14.1 % (11.5-14.5) Plt Count 155 k/mm3 (150-375) MPV 10.7 H fl (7.4-10.4) Immature Gran % (Auto) 0.2 % (0-0.5) Neut % (Auto) 73.5 H % (45.5-73.1) Lymph % (Auto) 16.9 L % (18.3-44.2) [place] % (Auto) 8.7 H % (2.6-8.5) Eos % (Auto) 0.6 % (0-4.4) Baso % (Auto) 0.1 L % (0.2-1.2) Lymph # (Auto) 1.48 K/mm3 (0.9-3.2) [place] # (Auto) 0.8 H K/mm3 (0.1-0.6) Eos # (Auto) 0.1 K/mm3 (0-0.3) Baso # (Auto) 0.0 K/mm3 (0.0-0.1) Abs Immat Gran (auto) 0.02 K/mm3 (0.00-0.031) Absolute Neuts (auto) 6.5 K/mm3 (1.3-6.7) Absolute Nucleated RBC 0.000 K/mm3 (0.0-0.012) Nucleated RBC % 0.0 % (0.0-0.2) Syphilis IgG/IgM Ab Negative (Negative) HIV 1&2 Ab/P24 Ag 4thGn Negative (Negative) Blood Type O Positive Antibody Screen Negative Patient hx anesthesia problems: none Family hx anesthesia problems: none Results Review: All pre-operative results and documents have been reviewed as part of the pre-operative evaluation. [facility] Past Medical History Medical History Pre-eclampsia Family History Family History Grandparent Cancer Grandparent Cancer Social History Social History Smoking status: Never smoker Alcohol intake: never Substance use: never Do You Feel Safe in your Home?: Yes Lack of Transportation: No Lack of Food: Never True Current Housing: I Have Housing Concerned About Future Housing: No Difficulty Paying Gas/Electric Bills: No Difficulty Paying for Meds: No Currently Unemployed: No Education: Decline to Answer Difficulty w/ Childcare or Family Care: No Living arrangements: with family Gender identity (if verbalized by the patient): Female Spiritual care concerns: No Exam Day of Procedure 10/07/24 13:23 Patient weight: overweight Heart: regular rate and rhythm Lungs: clear to auscultation Airway: Mallampati scale Neurological: alert and oriented
--- NOTE | 2024-10-07 16:24 | PC.NURSE ---
Patient transferred to post room #278 via wheelchair. Support person present. Oriented to unit, room, information board, rooming in, admission packet and security measures. Patient verbalizes understanding.
[2024-10-07] MEDS: ACETAMINOPHEN 325 MG TABLET 650 MG PO (22:02)
[2024-10-08] MEDS: IBUPROFEN 600 MG TABLET PO ×2 (03:04→10:35)
[2024-10-08 03:12] VITALS: BP 120/79; PULSE 67; RESP 16; TEMP 36.5; O2SAT 99
[2024-10-08 05:18] LABS: Hematocrit 28.5 % (37.0-47.0)
[2024-10-08] MEDS: MULTIVIT/MIN/PREN/FOL AC/IRON TABLET 1 TAB PO (07:39)
[2024-10-08] MEDS: DOCUSATE SODIUM 100 MG CAPSULE PO ×2 (07:39→17:49)
[2024-10-08] MEDS: ACETAMINOPHEN 325 MG TABLET 650 MG PO ×2 (07:39→17:49)
[2024-10-08] MEDS: POLYSACCHARIDE IRON COMPLEX 150 MG CAPSULE PO ×2 (07:39→17:49)
[2024-10-08 07:50] VITALS: BP 116/76; PULSE 83; RESP 16; TEMP 36.7; O2SAT 98
--- NOTE | 2024-10-08 07:56 | P.PNOB_ITS ---
OB - PN: Subj Subjective Date/time seen: 10/08/24 07:56 Interval history: pp day 1 doing well desires d/c home OB - PN: Obj Data Labs 10/08/24 03:39 Labs: Laboratory Results - last 24 hr 10/08/24 03:39 Hgb 9.0 L Hct 28.5 L OB - PN A/P Plan day: 1 Plan: routine care and discharge home Time Spent With Patient Time: Total time spent is greater than 50% in coordination of care (as documented) at patient's floor/unit and/or counseling patient: Review of Systems 2 Review of Systems: All systems reviewed & are unremarkable except as noted in HPI and below Exam 2 Const: General: cooperative, healthy appearing and comfortable Resp: Effort & Inspection: normal respiratory effort Cardio: Rate: regular rate
--- NOTE | 2024-10-08 07:58 | P.DS_ITS ---
DS: Admitting Diagnosis Discharge Date 10/08/24 Admitting Diagnosis IOL, TOLAC, oligohydramnios DS: Discharge Diagnosis Discharge Diagnosis (1) , delivered: Code(s): O34.219 - Maternal care for unspecified type scar from previous delivery Status: Acute OB - DS: Summary OB Procedures : None OB Procedures Intrapartum: Spontaneous Vag Delivery OB Procedures: : None Peripartum Data Episiotomy description: None Time Spent with Patient Time attestation: Total time spent providing and/or coordinating discharge services: DS: Data Data Completed and Pending Labs on day of discharge: Labs from last 24 hours 10/08/24 03:39 Hgb 9.0 L Hct 28.5 L Discharge Plan Discharge Attending physician on discharge: Hector Sullivan Discharging Clinician: Carrie Beatty Patient Disposition: Home Activity: pelvic rest Diet: regular Patient Instructions: Antibiotic Form Patient Language: Kosovan Stand Alone Forms: General Discharge Information Follow-up/Referrals: Carrie Beatty, CNM [Certified Nurse Road Sign Installer] - 4 Weeks Discharge Medications: Continued PNV cmb#95-ferrous fumarate-FA [] 28 mg iron- 800 mcg tablet 1 tablet PO DAILY Date of admission: 10/06/24 13:58 Primary Care Provider: MarelyTadeo Admitting Provider: Hector Sullivan Attending physician on admission: Hector Sullivan Condition: Stable
--- NOTE | 2024-10-08 09:07 | WPDANLDPN2 ---
Anes-Prog Note L&D Date/Time: 10/08/24 09:07 Comfortable throughout: labor and delivery Neuraxial method: epidural Epidural/Spinal procedure site: tender Neuro status: Neuro function grossly intact. Cardiovascular status: normal Respiratory status: normal Airway patency: baseline Mental status: baseline Post-Op hydration status: normal Vital Signs: Last Vital Signs Temp 36.7 C 10/08/24 07:50 Pulse 83 10/08/24 07:50 Resp 16 10/08/24 07:50 BP 116/76 10/08/24 07:50 Pulse Ox 98 10/08/24 07:50 O2 Del Method Room Air 10/07/24 20:30 Pain score (VAS): 06/18 I/O: Intake & Output 10/07/24 10/08/24 10/08/24 23:59 07:59 15:59 Intake Total 480 Balance 480 Post-procedural complaints: none Patient feedback: Patient satisfied with anesthetic care.
[2024-10-08 12:26] VITALS: BP 115/73; PULSE 77; RESP 16; TEMP 36.6; O2SAT 98
--- NOTE | 2024-10-08 13:30 | PC.NURSE ---
Consulted with mother concerning needs and she shared her ability to independently latch infant optimally without pain. Mother is feeding appropriately for growth of and understands stimulating to eat if needed. Reinforced understanding of milk production, transition of milk, signs of adequate intake, transition of stool, prevention/relief of engorgement, plugged ducts, mastitis, community resources (has WIC and a breast pump at home), and when to call a provider using the resource of the feeding sheet along with the mom and baby guide. Mother voiced understanding of the information shared, is confident to continue effectively her infant at home, when to call for assistance, denies any additional assistance or education at this time. Reported to the Primary RN.
--- NOTE | 2024-10-08 14:18 | PC.NURSE ---
Patient viewed the discharge video Mother & Baby Care, The First Two Weeks . Patient was given the opportunity and encouraged to ask questions. Patient verbalized understanding of information shared and has been given the mother/baby guide for home reference.
--- NOTE | 2024-10-08 17:20 | PC.NURSE ---
1720 RN will change discharge date to 10/09/24, per eyelet punch operator baby cannot be discharged today due to weight loss, so mother is not going home today.
[2024-10-08 20:25] VITALS: BP 120/73; PULSE 83; RESP 16; TEMP 36.4; O2SAT 98
[2024-10-09 00:40] VITALS: BP 111/63; PULSE 80; RESP 16; TEMP 36.8; O2SAT 97
[2024-10-09] MEDS: ACETAMINOPHEN 325 MG TABLET 650 MG PO (07:37)
[2024-10-09] MEDS: MULTIVIT/MIN/PREN/FOL AC/IRON TABLET 1 TAB PO (07:37)
[2024-10-09] MEDS: POLYSACCHARIDE IRON COMPLEX 150 MG CAPSULE PO (07:37)
[2024-10-09 08:20] VITALS: BP 127/62; PULSE 96; RESP 14; TEMP 36.6; O2SAT 100
--- NOTE | 2024-10-09 10:20 | PC.NURSE ---
Met with patient to ensure she did not have any further needs before discharge. We reviewed how to burp baby and that many breastfed babies don't burp. Baby is not spitting up. Mom is feeling confident with and pumping. No further concerns.
--- NOTE | 2024-10-09 10:38 | P.PNOB_ITS ---
OB - PN: Subj Subjective Date/time seen: 10/09/24 10:38 Interval history: pp day 1 doing well desires d/c home Patient comments: no complaints, pain well controlled and tolerating diet OB - PN: Obj Data Labs 10/08/24 03:39 OB - PN A/P Plan day: 2 Plan: routine care and discharge home Time Spent With Patient Time: Total time spent is greater than 50% in coordination of care (as documented) at patient's floor/unit and/or counseling patient: Exam 2 Const: General: comfortable and no acute distress Resp: Effort & Inspection: normal respiratory effort Auscultation: no rales, no rhonchi and no wheezes Cardio: Rate: regular rate Heart sounds: no click, no murmurs and no rubs GI: GI Palp: Yes Soft to palpation and No Tenderness to palpation present (GI) Auscultation: normal bowel sounds Extrem: General: normal to inspection, no pedal edema and no calf tenderness
--- NOTE | 2024-10-09 10:39 | PM.OBDSVD ---
DS: Admitting Diagnosis Discharge Date October 09, 2024 Admitting Diagnosis Term DS: Discharge Diagnosis Discharge Diagnosis (1) , delivered: Code(s): O34.219 - Maternal care for unspecified type scar from previous delivery Status: Acute OB - DS: Summary OB Procedures : None OB Procedures Intrapartum: OB Procedures: : None Peripartum Data Episiotomy description: None Time Spent with Patient Time attestation: Total time spent providing and/or coordinating discharge services: Discharge Plan Discharge Attending physician on discharge: Hector Sullivan Discharging Clinician: Carrie Beatty Patient Disposition: Home Activity: pelvic rest Diet: regular Discharge Instructions: Education: Mom and Baby Guide Given to: Mother Follow-Up: Call your delivering provider's office for an appointment to be seen in: 4 Weeks Mom and baby should come to the [facility] for the follow-up appointment. Appointment Date/Time: October 11, 2024 at 11:00 am What to expect at your follow-up visit: Physical Assessment Call [phone] if you are unable to keep your appointment time. BREAST CARE: * Wear a snug supportive bra. * For engorgement discomfort: Breast Feeding: * Apply warm moist washcloths * Express milk as needed to relieve engorgement * Wear loose clothing Bottle Feeding: * May apply ice packs * For sore nipples: * Identify correct latch-on * Apply warm moist washcloths before and after nursing * Air dry nipples after nursing * May apply Lansinoh cream to nipples EPISIOTOMY/PERINEAL CARE: * Until bleeding stops, use your jessica bottle after urinating * Change your pad frequently throughout the day * You may take sitz baths several times a day (fill your bathtub with warm water and soak for 20 minutes.) Do NOT bathe in the water * No tub baths until seen by your physician - You may shower ACTIVITY: * Rest as much as possible. * Do not exercise or lift anything heavier than your baby (such as laundry or other children.) * Avoid stairs or driving as much as possible. * Do not put anything into the vagina. No douching, tampons, or sexual activity until seen by physician. NOTIFY PHYSICIAN IF YOU HAVE ANY QUESTIONS OR IF ANY OF THE FOLLOWING SYMPTOMS OCCUR: * If your episiotomy/perineum becomes red, swollen, or more painful than what you have experienced in the hospital. * If your vaginal bleeding becomes foul smelling. * If your vaginal bleeding becomes more heavy than a period or if your bleeding changes from pink to bright red. However, you may pass an occasional walnut-sized clot once or twice for the first week . * If you experience a sharp, shooting pain in you calves. * If you discover a hard, reddened area on your breast or if you experience flu-like symptoms. DIET: * Eat regular, well-balanced meals. * Drink plenty of fluids daily. If , drink to thirst. Patient Instructions: Antibiotic Form Patient Language: Lao Stand Alone Forms: General Discharge Information Follow-up/Referrals: Carrie Beatty CNM [Certified Nurse Business Process Engineer] - 4 Weeks Discharge Medications: Continued PNV [id number] [] 28 mg iron- 800 mcg tablet 1 tablet PO DAILY Date of admission: 10/06/24 13:58 Primary Care Provider: Carlos AlbertoTadeo Admitting Provider: Hector Sullivan Attending physician on admission: Hector Sullivan Condition: Stable
[2024-10-11 11:21] VITALS: BP 134/77; PULSE 86; RESP 18; TEMP 37.1; O2SAT 100
== END 2024-10-09 12:30 | disposition home or self-care (01) | DRG 807 ==
LOC: ANHLDR 14:01 → ANHOB2 10-07 16:29
PROVIDERS: Admitting Provider Obstetrics & Gynecology; PCP Physician Assistant; Referring Provider Advanced Practice Midwife; Visit Provider Obstetrics & Gynecology
DX: O41.03X0 Oligohydramnios, third trimester, not applicable or unspecified (principal); Z37.0 Single live birth; Z3A.38 38 weeks gestation of pregnancy; O69.81X0 Labor and delivery complicated by cord around neck, without compression, not applicable or unspecified; O99.892 Other specified diseases and conditions complicating childbirth; Z87.59 Personal history of other complications of pregnancy, childbirth and the puerperium; O34.211 Maternal care for low transverse scar from previous cesarean delivery
CPT/HCPCS: 36415; 85014; 85018; 85025; 86593; 86703; 86850; 86900; 86901; A9270; G0432; J2405; J2590; J2795; J7120